=== PATIENT | female | born 1960 | race Hispanic/Latino ===

== ENCOUNTER 2017-12-20 11:56 | Emergency (ER) | payer MEDICARE ==
[~2017-12-20] VITALS: Ht 162.6 cm; Wt 68.0 kg
--- OUTSIDE RECORDS SUMMARY | 2017-12-20 11:59 | XMS REPORT ---
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 Allergies, Adverse Reactions, Alerts This patient has no known allergies or adverse reactions. Medications This patient has no known medications. Encounters Start Date/Time End Date/Time Encounter Type Admission Type Attending [facility] Facility Care Department Encounter ID 2017-10-26 12:17:36 Inpatient [facility] [id number] 2017-10-26 05:43:00 Inpatient [facility] [id number] 2017-10-26 00:00:00 Inpatient [facility] [id number] 2017-10-24 00:00:00 Inpatient [facility] [id number] 2017-08-14 00:00:00 Inpatient [facility] [id number] 2018-01-30 00:00:00 2018-01-30 00:00:00 Outpatient [facility] [id number] 2018-01-29 00:00:00 2018-01-29 00:00:00 Outpatient [facility] [id number] 2018-01-22 00:00:00 2018-01-22 00:00:00 Outpatient [facility] [id number] 2018-01-11 00:00:00 2018-01-11 00:00:00 Outpatient [facility] [id number] 2018-01-03 00:00:00 2018-01-03 00:00:00 Outpatient [facility] [id number] 2017-12-27 00:00:00 2017-12-27 00:00:00 Outpatient [facility] [id number] 2017-12-20 09:22:57 2017-12-20 09:22:57 Outpatient [facility] [id number] 2017-12-20 00:00:00 2017-12-20 00:00:00 Outpatient [facility] [id number] 2017-12-20 00:00:00 2017-12-20 00:00:00 Outpatient [facility] [id number] 2017-12-13 09:17:46 2017-12-13 09:17:46 Outpatient [facility] [id number] 2017-12-12 00:00:00 2017-12-12 00:00:00 Outpatient [facility] [id number] 2017-12-08 00:00:00 2017-12-08 00:00:00 Outpatient [facility] [id number] 2017-12-07 00:00:00 2017-12-07 00:00:00 Outpatient [facility] [id number] 08:53:14 2017 08:53:14 Outpatient [facility] [id number] 00:00:00 2017 00:00:00 Outpatient [facility] [id number] 2017-11-30 10:07:28 2017-11-30 10:07:28 Outpatient [facility] [id number] 2017-11-30 10:05:10 2017-11-30 10:05:10 Outpatient [facility] [id number] 2017-11-30 00:00:00 2017-11-30 00:00:00 Outpatient [facility] [id number] 2017-11-30 00:00:00 2017-11-30 00:00:00 Outpatient [facility] [id number] 2017-11-29 09:53:25 2017-11-29 09:53:25 Outpatient [facility] [id number] 2017-11-22 00:00:00 2017-11-22 00:00:00 Outpatient [facility] [id number] 2017-11-15 09:05:01 2017-11-15 09:05:01 Outpatient [facility] [id number] 2017-11-14 09:51:54 2017-11-14 09:51:54 Outpatient [facility] [id number] 2017-11-09 09:04:27 2017-11-09 09:04:27 Outpatient [facility] [id number] 2017-11-08 14:59:25 2017-11-08 14:59:25 Outpatient [facility] [id number] 2017-11-03 12:08:01 2017-11-03 12:08:01 Outpatient [facility] [id number] 2017-11-03 00:00:00 2017-11-03 00:00:00 Outpatient [facility] [id number] 2017-10-26 14:13:32 2017-10-26 00:00:00 Inpatient [facility] [id number] 2017-10-24 07:48:47 2017-10-24 07:48:47 Outpatient [facility] [id number] 2017-10-23 09:58:50 2017-10-23 09:58:50 Outpatient [facility] [id number] 2017-10-17 08:59:01 2017-10-17 08:59:01 Outpatient [facility] [id number] 2017-10-17 00:00:00 2017-10-17 00:00:00 Outpatient [facility] [id number] 2017-10-12 00:00:00 2017-10-12 00:00:00 Outpatient [facility] [id number] 2017-10-09 14:55:16 2017-10-09 14:55:16 Outpatient [facility] [id number] 2017-10-06 09:12:50 2017-10-06 09:12:50 Outpatient [facility] [id number] 2017-10-02 09:22:59 2017-10-02 09:22:59 Outpatient [facility] [id number] 2017-09-26 00:00:00 2017-09-26 00:00:00 Outpatient [facility] [id number] 2017-09-18 13:56:48 2017-09-18 13:56:48 Outpatient [facility] [id number] 2017-09-15 13:17:03 2017-09-15 13:17:03 Outpatient [facility] [id number] 2017-09-15 08:48:12 2017-09-15 08:48:12 Outpatient [facility] [id number] 2017-09-07 13:21:10 2017-09-07 13:21:10 Outpatient [facility] [id number] 2017-09-05 08:10:02 2017-09-05 08:10:02 Outpatient [facility] [id number] 2017-09-04 13:29:05 2017-09-04 13:29:05 Outpatient [facility] [id number] 2017-08-23 00:00:00 2017-08-23 00:00:00 Outpatient [facility] [id number] 2017-08-17 00:00:00 2017-08-17 00:00:00 Outpatient [facility] [id number] 2017-08-14 14:10:52 2017-08-14 14:10:52 Outpatient [facility] [id number] 2017-08-14 14:08:18 2017-08-14 14:08:18 Outpatient [facility] [id number] 2017-08-14 00:00:00 2017-08-14 00:00:00 Outpatient [facility] [id number] 2017-08-11 15:36:03 2017-08-11 15:36:03 Outpatient [facility] [id number] 2017-07-17 09:51:05 2017-07-17 09:51:05 Outpatient [facility] [id number] 2017-07-12 13:25:23 2017-07-12 13:25:23 Outpatient [facility] [id number] 2017-07-07 00:00:00 2017-07-07 00:00:00 Outpatient [facility] [id number] 2017-07-03 00:00:00 2017-07-03 00:00:00 Outpatient [facility] [id number] 2017-06-30 00:00:00 2017-06-30 00:00:00 Outpatient [facility] [id number] 2017-06-30 00:00:00 2017-06-30 00:00:00 Outpatient [facility] [id number] 2017-06-30 00:00:00 2017-06-30 00:00:00 Outpatient [facility] [id number] 2017-06-27 16:05:55 2017-06-27 16:05:55 Outpatient [facility] [id number] 2017-06-23 09:19:33 2017-06-23 09:19:33 Outpatient [facility] [id number] 2017-05-15 00:00:00 2017-05-15 00:00:00 Outpatient [facility] [id number] 2017-05-12 15:30:55 2017-05-12 15:30:55 Outpatient [facility] [id number] 2017-05-10 00:00:00 2017-05-10 00:00:00 Outpatient [facility] [id number] 2017-05-03 09:30:34 2017-05-03 09:30:34 Outpatient [facility] [id number] 2017-04-27 08:53:39 2017-04-27 08:53:39 Outpatient [facility] [id number] 2017-04-25 15:19:59 2017-04-25 15:19:59 Outpatient [facility] [id number] 2017-04-14 13:07:50 2017-04-14 13:07:50 Outpatient [facility] [id number] 2017-04-14 00:00:00 2017-04-14 00:00:00 Outpatient [facility] [id number] 2017-04-13 13:08:04 2017-04-13 13:08:04 Outpatient [facility] [id number] 2017-04-06 15:12:00 2017-04-06 15:12:00 Outpatient [facility] [id number] 2017-04-06 13:28:26 2017-04-06 13:28:26 Outpatient [facility] [id number] 2017-03-28 09:11:54 2017-03-28 09:11:54 Outpatient [facility] [id number] 2017-03-20 10:42:41 2017-03-20 10:42:41 Outpatient [facility] [id number]
--- OUTSIDE RECORDS SUMMARY | 2017-12-20 11:59 | XMS REPORT | Clinical Summary ---
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
[2017-12-20] MEDS ORDERED: LIDOCAINE VISC 2% SOLN 15 ML UDC PO ONE (12:15)
[2017-12-20] MEDS ORDERED: ASPIRIN 81 MG CHEW TAB PO ONE (12:15)
[2017-12-20] MEDS ORDERED: MAGNESIUM/ALUMINUM/SIMETHICONE 30 ML UDC PO ONE (12:15)
[2017-12-20 13:06] LABS: BASOPHILS # (AUTO) 0.1 (0.0-0.1); BASOPHILS % 0.5 % (0.0-1.0); EOSINOPHILS # (AUTO) 0.3 (0.0-0.4); EOSINOPHILS % 2.7 % (0.0-6.0); HEMATOCRIT 39.2 % (34.2-44.1); HEMOGLOBIN 12.9 g/dL (12.0-16.0); LYMPHOCYTES # (AUTO) 2.1 (1.0-3.2); LYMPHOCYTES % 16.7 % (18.0-39.1); MEAN CORPUSCULAR HEMOGLOBIN 30.4 pg (28-32); MEAN CORPUSCULAR HGB CONC 32.9 g/dL (31-35); MEAN CORPUSCULAR VOLUME 92.5 fL (81-99); MONOCYTES # (AUTO) 0.6 (0.2-0.8); MONOCYTES % 4.5 % (4.4-11.3); NEUTROPHILS # (AUTO) 9.4 (2.1-6.9); NEUTROPHILS % 75.3 % (38.7-80.0); PLATELET COUNT 283 x10e3/uL (140-360); RED BLOOD COUNT 4.24 x10e6/uL (3.6-5.1); RED CELL DISTRIBUTION WIDTH 12.7 % (11.7-14.4)
--- NOTE | 2017-12-20 13:09 | Diagnostic Imaging Report ---
PROCEDURE: CHEST SINGLE (PORTABLE) COMPARISON: None. INDICATIONS: CHEST PAINS, COUGH, SOB FINDINGS: Volumes are low with vascular crowding in the lung bases. No focal consolidation, pleural effusion, or pneumothorax. Cardiomediastinal contour and pulmonary vasculature are within normal limits when accounting for portable, AP technique and degree of inspiratory effort. No acute osseous abnormality. CONCLUSION: Low lung volumes without acute cardiopulmonary abnormality. Dictated by: Justin Egan M.D. on 12/20/2017 at 13:08 Electronically approved by: Justin Egan M.D. on 12/20/2017 at 13:08
[2017-12-20 13:17] LABS: INR 1.08; PROTHROMBIN TIME 13.2 seconds (11.9-14.5)
[2017-12-20 13:18] LABS: PARTIAL THROMBOPLASTIN TIME 26.1 seconds (23.8-35.5)
[2017-12-20 13:32] LABS: ALANINE AMINOTRANSFERASE 32 IU/L (0-55); ALBUMIN 4.3 g/dL (3.5-5.0); ALBUMIN/GLOBULIN RATIO 1.1 (0.8-2.0); ALKALINE PHOSPHATASE 125 IU/L (40-150); AMYLASE 60 U/L (25-125); ANION GAP 13.6 mmol/L (8-16); BLOOD UREA NITROGEN 23 mg/dL (7-26); BUN/CREATININE RATIO 30 (6-25); CALCIUM 9.2 mg/dL (8.4-10.2); CARBON DIOXIDE 20 mmol/L (22-29); CHLORIDE 108 mmol/L (98-107); CREATINE KINASE 33 IU/L (29-168); CREATININE, SERUM 0.77 mg/dL (0.57-1.11); EST GLOMERULAR FILTRATION RATE > 60 ML/MIN (60-); GLUCOSE 111 mg/dL (74-118); LIPASE 22 U/L (8-78); POTASSIUM 3.6 mmol/L (3.5-5.1); SODIUM 138 mmol/L (136-145)
[2017-12-20] MEDS ORDERED: BELLADONNA ALK/PHENOBARBITAL 5 ML UDC PO SCH (15:00)
== END 2017-12-20 17:34 | disposition home or self-care (01) ==
LOC: ER 11:56
DX: R10.13 Epigastric pain (principal); R07.89 Other chest pain; R11.0 Nausea
CPT/HCPCS: 36415; 71045; 80053; 82150; 82550; 82553; 83690; 83880; 84484; 85025; 85610; 85730; 93005; 99284

== ENCOUNTER → 2019-01-22 | Day surgery (SDC) | payer MEDICARE, OTHER ==
[2019-01-17 13:23] LABS: BASOPHILS # (AUTO) 0.1 (0.0-0.1); BASOPHILS % 1.2 % (0.0-1.0); EOSINOPHILS # (AUTO) 0.6 (0.0-0.4); EOSINOPHILS % 9.1 % (0.0-6.0); HEMOGLOBIN 14.3 g/dL (12.0-16.0); LYMPHOCYTES # (AUTO) 2.2 (1.0-3.2); LYMPHOCYTES % 35.9 % (18.0-39.1); MEAN CORPUSCULAR HGB CONC 33.3 g/dL (31-35); MEAN CORPUSCULAR VOLUME 90.3 fL (81-99); MONOCYTES # (AUTO) 0.5 (0.2-0.8); MONOCYTES % 7.4 % (4.4-11.3); NEUTROPHILS # (AUTO) 2.8 (2.1-6.9); NEUTROPHILS % 46.1 % (38.7-80.0); PLATELET COUNT 274 x10e3/uL (140-360); RED BLOOD COUNT 4.76 x10e6/uL (3.6-5.1); RED CELL DISTRIBUTION WIDTH 12.2 % (11.7-14.4)
[~2019-01-22] MED LIST: ADVAIR 250-501 EACH INH; ALBUTEROL0.63 MG/3 IH; AMBIEN5 MG PO; AMLODIPINE BESY10 MG PO; BUPROPION HCL100 MG PO; CETIRIZINE HCL10 MG PO; DEXILANT30 MG PO; FENTANYL CITRATE/PF 100MCG/2 ML INJ ONE; FLUTICASONE PRO16 GM; GABAPENTIN300 MG PO; IBUPROFEN400 MG PO; LISINOPRIL10 MG PO; METOPROLOL SUCC50 MG PO; MIDAZOLAM HCL 2 MG/2 ML VIAL ONE; MIRTAZAPINE15 MG PO; NEBULIZER PO; PROPOFOL IV EMULSION 10 MG/ML 50 ML VIAL ONE; TIZANIDINE HCL4 MG PO; TOPIRAMATE25 MG PO; VIT B12 PO; VIT D3 PO; VIT E PO
--- OUTSIDE RECORDS SUMMARY | 2019-01-22 07:32 | XMS REPORT ---
Author Author [facility] Address Unknown Phone Unavailable Care Team Providers Care Glue Clamp Operator Name Role Phone Blanca TOLEDO Unavailable Unavailable Problems This patient has no known problems. Allergies, Adverse Reactions, Alerts This patient has no known allergies or adverse reactions. Medications This patient has no known medications. Encounters Start Date/Time End Date/Time Encounter Type Admission Type Attending [facility] Care Facility Care Department Encounter ID 2017-10-26 12:17:36 Inpatient [facility] [id number] 2017-10-26 05:43:00 Inpatient [facility] [id number] 2017-10-26 00:00:00 Inpatient [facility] [id number] 2017-10-24 00:00:00 Inpatient [facility] [id number] 2017-08-14 00:00:00 Inpatient [facility] [id number] 2018-10-09 00:00:00 2018-10-09 00:00:00 Outpatient [facility] [id number] 2018-10-08 00:00:00 2018-10-08 00:00:00 Outpatient [facility] [id number] 2018-09-18 00:00:00 2018-09-18 00:00:00 Outpatient [facility] [id number] 2018-08-27 00:00:00 2018-08-27 00:00:00 Outpatient [facility] [id number] 2018-08-21 12:55:14 2018-08-21 12:55:14 Outpatient [facility] [id number] 2018-08-21 00:00:00 2018-08-21 00:00:00 Outpatient [facility] [id number] 2018-08-14 14:21:43 2018-08-14 14:21:43 Outpatient [facility] [id number] 2018-08-07 00:00:00 2018-08-07 00:00:00 Outpatient [facility] [id number] 2018-08-03 00:00:00 2018-08-03 00:00:00 Outpatient [facility] [id number] 2018-07-27 00:00:00 2018-07-27 00:00:00 Outpatient [facility] [id number] 2018-07-14 00:00:00 2018-07-14 00:00:00 Outpatient [facility] [id number] 2018-07-05 09:55:20 2018-07-05 09:55:20 Outpatient [facility] [id number] 2018-06-22 00:00:00 2018-06-22 00:00:00 Outpatient [facility] [id number] 2018-06-21 11:08:57 2018-06-21 11:08:57 Outpatient [facility] [id number] 2018-06-18 00:00:00 2018-06-18 00:00:00 Outpatient [facility] [id number] 2018-06-15 00:00:00 2018-06-15 00:00:00 Outpatient [facility] [id number] 2018-06-13 10:22:12 2018-06-13 10:22:12 Outpatient [facility] [id number] 2018-06-13 09:03:12 2018-06-13 09:03:12 Outpatient [facility] [id number] 2018-06-05 00:00:00 2018-06-05 00:00:00 Outpatient [facility] [id number] 2018-05-23 00:00:00 2018-05-23 00:00:00 Outpatient [facility] [id number] 2018-05-10 00:00:00 2018-05-10 00:00:00 Outpatient [facility] [id number] 2018-05-02 07:34:28 2018-05-02 07:34:28 Outpatient [facility] [id number] 2018-04-30 08:15:19 2018-04-30 08:15:19 Outpatient [facility] [id number] 2018-04-25 00:00:00 2018-04-25 00:00:00 Outpatient [facility] [id number] 2018-04-19 09:46:52 2018-04-19 09:46:52 Outpatient [facility] [id number] 2018-04-19 09:40:45 2018-04-19 09:40:45 Outpatient [facility] [id number] 2018-04-19 07:49:31 2018-04-19 07:49:31 Outpatient [facility] [id number] 2018-04-12 09:38:39 2018-04-12 09:38:39 Outpatient [facility] [id number] 2018-04-04 07:29:08 2018-04-04 07:29:08 Outpatient [facility] [id number] 2018-04-03 13:08:39 2018-04-03 13:08:39 Outpatient [facility] [id number] 2018-03-28 07:09:18 2018-03-28 07:09:18 Outpatient [facility] [id number] 2018-03-28 07:04:36 2018-03-28 07:04:36 Outpatient [facility] [id number] 2018-03-27 14:34:50 2018-03-27 14:34:50 Outpatient [facility] [id number] 2018-03-22 08:13:39 2018-03-22 08:13:39 Outpatient [facility] [id number] 2018-03-19 00:00:00 2018-03-19 00:00:00 Outpatient [facility] [id number] 2018-03-15 00:00:00 2018-03-15 00:00:00 Outpatient [facility] [id number] 2018-03-13 07:39:02 2018-03-13 07:39:02 Outpatient [facility] [id number] 2018-03-13 06:49:27 2018-03-13 06:49:27 Outpatient [facility] [id number] 2018-03-08 14:20:51 2018-03-08 14:20:51 Outpatient [facility] [id number] 2018-03-08 12:40:37 2018-03-08 12:40:37 Outpatient [facility] [id number] 2018-03-07 10:00:47 2018-03-07 10:00:47 Outpatient [facility] [id number] 2018-03-07 08:40:46 2018-03-07 08:40:46 Outpatient [facility] [id number] 2018-02-27 09:37:18 2018-02-27 09:37:18 Outpatient [facility] [id number] 2018-02-23 14:18:37 2018-02-23 14:18:37 Outpatient [facility] [id number] 2018-02-22 14:53:01 2018-02-22 14:53:01 Outpatient [facility] [id number] 2018-02-22 14:42:10 2018-02-22 14:42:10 Outpatient [facility] [id number] 2018-02-22 09:30:08 2018-02-22 09:30:08 Outpatient [facility] [id number] 2018-02-13 09:39:42 2018-02-13 09:39:42 Outpatient [facility] [id number] 2018-01-30 00:00:00 2018-01-30 00:00:00 Outpatient [facility] [id number] 2018-01-29 00:00:00 2018-01-29 00:00:00 Outpatient [facility] [id number] 2018-01-24 09:24:23 2018-01-24 09:24:23 Outpatient [facility] [id number] 2018-01-22 15:19:01 2018-01-22 15:19:01 Outpatient [facility] [id number] 2018-01-16 00:00:00 2018-01-16 00:00:00 Outpatient [facility] [id number] 2018-01-11 07:08:45 2018-01-11 07:08:45 Outpatient [facility] [id number] 2018-01-10 00:00:00 2018-01-10 00:00:00 Outpatient [facility] [id number] 2018-01-03 09:47:38 2018-01-03 09:47:38 Outpatient [facility] [id number] 2017-12-27 09:36:07 2017-12-27 09:36:07 Outpatient [facility] [id number] 2017-12-21 00:00:00 2017-12-21 00:00:00 Outpatient [facility] [id number] 2017-12-20 09:22:57 2017-12-20 09:22:57 Outpatient [facility] [id number] 2017-12-20 00:00:00 2017-12-20 00:00:00 Outpatient [facility] [id number] 2017-12-20 00:00:00 2017-12-20 00:00:00 Outpatient [facility] [id number] 2017-12-13 09:17:46 2017-12-13 09:17:46 Outpatient [facility] [id number] 2017-12-12 00:00:00 2017-12-12 00:00:00 Outpatient [facility] [id number] 2017-12-08 00:00:00 2017-12-08 00:00:00 Outpatient [facility] [id number] 2017-12-07 00:00:00 2017-12-07 00:00:00 Outpatient [facility] [id number] 2017 08:53:14 2017 08:53:14 Outpatient [facility] [id number] 2017 00:00:00 2017 00:00:00 Outpatient [facility] [id number] 2017-11-30 10:07:28 2017-11-30 10:07:28 Outpatient [facility] [id number] 2017-11-30 10:05:10 2017-11-30 10:05:10 Outpatient [facility] [id number] 2017-11-30 00:00:00 2017-11-30 00:00:00 Outpatient [facility] [id number] 2017-11-30 00:00:00 2017-11-30 00:00:00 Outpatient [facility] [id number] 2017-11-29 09:53:25 2017-11-29 09:53:25 Outpatient [facility] [id number] 2017-11-22 00:00:00 2017-11-22 00:00:00 Outpatient [facility] [id number] 2017-11-15 09:05:01 2017-11-15 09:05:01 Outpatient [facility] [id number] 2017-11-14 09:51:54 2017-11-14 09:51:54 Outpatient [facility] [id number] 2017-11-09 09:04:27 2017-11-09 09:04:27 Outpatient [facility] [id number] 2017-11-08 14:59:25 2017-11-08 14:59:25 Outpatient [facility] [id number] 2017-11-03 12:08:01 2017-11-03 12:08:01 Outpatient [facility] [id number] 2017-11-03 00:00:00 2017-11-03 00:00:00 Outpatient [facility] [id number] 2017-10-26 14:13:32 2017-10-26 00:00:00 Inpatient [facility] [id number] 2017-10-24 07:48:47 2017-10-24 07:48:47 Outpatient [facility] [id number] 2017-10-23 09:58:50 2017-10-23 09:58:50 Outpatient [facility] [id number] 2017-10-17 08:59:01 2017-10-17 08:59:01 Outpatient [facility] [id number] 2017-10-17 00:00:00 2017-10-17 00:00:00 Outpatient [facility] [id number] 2017-10-12 00:00:00 2017-10-12 00:00:00 Outpatient [facility] [id number] 2017-10-09 14:55:16 2017-10-09 14:55:16 Outpatient [facility] [id number] 2017-10-06 09:12:50 2017-10-06 09:12:50 Outpatient [facility] [id number] 2017-10-02 09:22:59 2017-10-02 09:22:59 Outpatient [facility] [id number] 2017-09-26 00:00:00 2017-09-26 00:00:00 Outpatient [facility] [id number] 2017-09-18 13:56:48 2017-09-18 13:56:48 Outpatient [facility] [id number] 2017-09-15 13:17:03 2017-09-15 13:17:03 Outpatient [facility] [id number] 2017-09-15 08:48:12 2017-09-15 08:48:12 Outpatient [facility] [id number] 2017-09-07 13:21:10 2017-09-07 13:21:10 Outpatient [facility] [id number] 2017-09-05 08:10:02 2017-09-05 08:10:02 Outpatient [facility] [id number] 2017-09-04 13:29:05 2017-09-04 13:29:05 Outpatient [facility] [id number] 2017-08-23 00:00:00 2017-08-23 00:00:00 Outpatient [facility] [id number] 2017-08-17 00:00:00 2017-08-17 00:00:00 Outpatient [facility] [id number] 2017-08-14 14:10:52 2017-08-14 14:10:52 Outpatient [facility] [id number] 2017-08-14 14:08:18 2017-08-14 14:08:18 Outpatient [facility] [id number] 2017-08-14 00:00:00 2017-08-14 00:00:00 Outpatient [facility] [id number] 2017-08-11 15:36:03 2017-08-11 15:36:03 Outpatient [facility] [id number] 2017-07-17 09:51:05 2017-07-17 09:51:05 Outpatient [facility] [id number] 2017-07-12 13:25:23 2017-07-12 13:25:23 Outpatient [facility] [id number] 2017-07-07 00:00:00 2017-07-07 00:00:00 Outpatient [facility] [id number] 2017-07-03 00:00:00 2017-07-03 00:00:00 Outpatient [facility] [id number] 2017-06-30 00:00:00 2017-06-30 00:00:00 Outpatient [facility] [id number] 2017-06-30 00:00:00 2017-06-30 00:00:00 Outpatient [facility] [id number] 2017-06-30 00:00:00 2017-06-30 00:00:00 Outpatient [facility] [id number] 2017-06-27 16:05:55 2017-06-27 16:05:55 Outpatient [facility] [id number] 2017-06-23 09:19:33 2017-06-23 09:19:33 Outpatient [facility] [id number] 2017-05-15 00:00:00 2017-05-15 00:00:00 Outpatient [facility] [id number] 2017-05-12 15:30:55 2017-05-12 15:30:55 Outpatient [facility] [id number] 2017-05-10 00:00:00 2017-05-10 00:00:00 Outpatient [facility] [id number] 2017-05-03 09:30:34 2017-05-03 09:30:34 Outpatient [facility] [id number] 2017-04-27 08:53:39 2017-04-27 08:53:39 Outpatient [facility] [id number] 2017-04-25 15:19:59 2017-04-25 15:19:59 Outpatient [facility] [id number] 2017-04-14 13:07:50 2017-04-14 13:07:50 Outpatient [facility] [id number] 2017-04-14 00:00:00 2017-04-14 00:00:00 Outpatient [facility] [id number] 2017-04-13 13:08:04 2017-04-13 13:08:04 Outpatient [facility] [id number] 2017-04-06 15:12:00 2017-04-06 15:12:00 Outpatient [facility] [id number] 2017-04-06 13:28:26 2017-04-06 13:28:26 Outpatient [facility] [id number] 2017-03-28 09:11:54 2017-03-28 09:11:54 Outpatient [facility] [id number] 2017-03-20 10:42:41 2017-03-20 10:42:41 Outpatient [facility] [id number] Results Test Description Test Time Test Comments Text Results Atomic Results Result Comments CHEST SINGLE (PORTABLE) [place] [id number] Patient Name: ZONIA ARENAS MR #: [id number] : 1960 Age/Sex: 57/F Req #: [id number] Adm Physician: Ordered by: MANJULA ALVARADO NP Report #: [id number] Location: ER Room/Bed: Procedure: [id number] DX/CHEST SINGLE (PORTABLE) Exam Date: Exam Time: REPORT STATUS: Signed PROCEDURE: CHEST SINGLE (PORTABLE) COMPARISON: None. INDICATIONS: CHEST PAINS, COUGH, SOB FINDINGS: Volumes are low with vascular crowding in the lung bases. No focal consolidation, pleural effusion, or pneumothorax. Cardiomediastinal contour and pulmonary vasculature are within normal limits when accounting for portable, AP technique and degree of inspiratory effort. No acute osseous abnormality. CONCLUSION: Low lung volumes without acute cardiopulmonary abnormality. Dictated by: Joelle Becerra M.D. on 12/20/2017 at 13:08 Electronically approved by: Joelle Becerra M.D. on 12/20/2017 at 13:08 Dictated By: JOELLE BECERRA MD [id number] Transcribed By: EMIGDIO on 12/20/17 1573 COPY TO: MANJULA ALVARADO NP
--- OUTSIDE RECORDS SUMMARY | 2019-01-22 07:32 | XMS REPORT | Clinical Summary ---
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 Last Filed Vital Signs Not on file Plan of Treatment Not on file Results Not on fileafter 01/21/2018
[2019-01-22 12:55] VITALS: BP 126/78
== END | disposition home or self-care (01) ==
LOC: OR 07:20
PROVIDERS: ATTEND Internal Medicine Gastroenterology
DX: Z12.11 Encounter for screening for malignant neoplasm of colon (principal); D12.0 Benign neoplasm of cecum; K64.8 Other hemorrhoids; R19.7 Diarrhea, unspecified; K21.9 Gastro-esophageal reflux disease without esophagitis; G47.33 Obstructive sleep apnea (adult) (pediatric); J45.909 Unspecified asthma, uncomplicated; I10 Essential (primary) hypertension; R07.9 Chest pain, unspecified; F32.9 Major depressive disorder, single episode, unspecified; F41.9 Anxiety disorder, unspecified; Z01.812 Encounter for preprocedural laboratory examination; Z68.30 Body mass index [BMI] 30.0-30.9, adult; Z96.651 Presence of right artificial knee joint; Z80.0 Family history of malignant neoplasm of digestive organs
CPT/HCPCS: 36415; 45380; 45384; 85025; J2250; J2704; 45378

== ENCOUNTER 2019-03-26 20:50 | Inpatient (IN) | payer MEDICARE, OTHER ==
[~2019-03-26] VITALS: Ht 162.6 cm; Wt 85.5 kg
[~2019-03-26 20:50] MED LIST changes: -FENTANYL CITRATE/PF 100MCG/2 ML INJ ONE; -MIDAZOLAM HCL 2 MG/2 ML VIAL ONE; -PROPOFOL IV EMULSION 10 MG/ML 50 ML VIAL ONE
--- OUTSIDE RECORDS SUMMARY | 2019-03-26 20:54 | XMS REPORT | Continuity of Care Document ---
Author Author [facility] Interface Address Unknown Phone Unavailable Problems Problem Status Onset Date Classification Date Reported Comments Source Medications Medication Details Route Status Patient Instructions Ordering Provider Order Date Source Allergies, Adverse Reactions, Alerts Substance Category Reaction Severity Reaction type Status Date Reported Comments Source Immunizations Immunization Date Given Site Status Last Updated Comments Source Results Order Name Results Value Reference Range Date Interpretation Comments Source Activated partial thromboplastin time (aPTT) in platelet poor plasma bycoagulation assay Activated partial thromboplastin time (aPTT) in platelet poor plasma bycoagulation assay 26.1 23.8 - 35.5 12/20/2017 [facility] Automated blood basophil count (count/volume) Automated blood basophil count (count/volume) 0.1 0.0 - 0.1 12/20/2017 [facility] Automated blood basophil count as percentage of total leukocytes Automated blood basophil count as percentage of total leukocytes 0.5 0.0 - 1.0 12/20/2017 [facility] Automated blood eosinophil count Automated blood eosinophil count 0.3 0.0 - 0.4 12/20/2017 [facility] Automated blood eosinophil count as percentage of total leukocytes Automated blood eosinophil count as percentage of total leukocytes 2.7 0.0 - 6.0 12/20/2017 [facility] Automated blood hematocrit (volume fraction) Automated blood hematocrit (volume fraction) 39.2 34.2 - 44.1 12/20/2017 [facility] Automated blood lymphocyte count as percentage ot total leukocytes Automated blood lymphocyte count as percentage ot total leukocytes 16.7 18.0 - 39.1 12/20/2017 [facility] Automated blood monocyte count as percentage of total leukocytes Automated blood monocyte count as percentage of total leukocytes 4.5 4.4 - 11.3 12/20/2017 [facility] Automated blood neutrophil count Automated blood neutrophil count 9.4 2.1 - 6.9 12/20/2017 [facility] Automated blood platelet count (count/volume) Automated blood platelet count (count/volume) 283 140 - 360 12/20/2017 [facility] Automated blood segmented neutrophil count as percentage of total leukocytes Automated blood segmented neutrophil count as percentage of total leukocytes 75.3 38.7 - 80.0 12/20/2017 [facility] Automated erythrocyte mean corpuscular hemoglobin (mass per erythrocyte) Automated erythrocyte mean corpuscular hemoglobin (mass per erythrocyte) 30.4 28 - 32 12/20/2017 [facility] Automated erythrocyte mean corpuscular hemoglobin concentration measurement (mass/volume) Automated erythrocyte mean corpuscular hemoglobin concentration measurement (mass/volume) 32.9 31 - 35 12/20/2017 [facility] Automated erythrocyte mean corpuscular volume Automated erythrocyte mean corpuscular volume 92.5 81 - 99 12/20/2017 [facility] Blood erythrocytes automated count (number/volume) Blood erythrocytes automated count (number/volume) 4.24 3.6 - 5.1 12/20/2017 [facility] Blood hemoglobin measurement (moles/volume) Blood hemoglobin measurement (moles/volume) 12.9 12.0 - 16.0 12/20/2017 [facility] Blood leukocytes automated count (number/volume) Blood leukocytes automated count (number/volume) 12.42 4.8 - 10.8 12/20/2017 [facility] Blood lymphocytes count (number/volume) Blood lymphocytes count (number/volume) 2.1 1.0 - 3.2 12/20/2017 [facility] Blood monocytes automated count (number/volume) Blood monocytes automated count (number/volume) 0.6 0.2 - 0.8 12/20/2017 [facility] Estimated glomerular filtration rate (GFR) determination Estimated glomerular filtration rate (GFR) determination null 60 12/20/2017 [facility] Glucose measurement Glucose measurement 111 74 - 118 12/20/2017 [facility] INR in Platelet poor plasma by Coagulation assay INR in Platelet poor plasma by Coagulation assay 1.08 12/20/2017 [facility] Plasma globulin measurement (mass/volume) Plasma globulin measurement (mass/volume) 3.9 2.3 - 3.5 12/20/2017 [facility] Prothrombin time (PT) in platelet poor plasma by coagulation assay Prothrombin time (PT) in platelet poor plasma by coagulation assay 13.2 11.9 - 14.5 12/20/2017 [facility] Serum or plasma alanine aminotransferase measurement (enzymatic activity/volume) Serum or plasma alanine aminotransferase measurement (enzymatic activity/volume) 32 0 - 55 12/20/2017 [facility] Serum or plasma albumin measurement (mass/volume) Serum or plasma albumin measurement (mass/volume) 4.3 3.5 - 5.0 12/20/2017 [facility] Serum or plasma albumin/globulin mass ratio Serum or plasma albumin/globulin mass ratio 1.1 0.8 - 2.0 12/20/2017 [facility] Serum or plasma alkaline phosphatase measurement (enzymatic activity/volume) Serum or plasma alkaline phosphatase measurement (enzymatic activity/volume) 125 40 - 150 12/20/2017 [facility] Serum or plasma amylase measurement (enzymatic activity/volume) Serum or plasma amylase measurement (enzymatic activity/volume) 60 25 - 125 12/20/2017 [facility] Serum or plasma anion gap Serum or plasma anion gap 13.6 8 - 16 12/20/2017 [facility] Serum or plasma calcium measurement (mass/volume) Serum or plasma calcium measurement (mass/volume) 9.2 8.4 - 10.2 12/20/2017 [facility] Serum or plasma carbon dioxide, total measurement (moles/volume) Serum or plasma carbon dioxide, total measurement (moles/volume) 20 22 - 29 12/20/2017 [facility] Serum or plasma chloride measurement (moles/volume) Serum or plasma chloride measurement (moles/volume) 108 98 - 107 12/20/2017 [facility] Serum or plasma creatine kinase MB measurement (mass/volume) Serum or plasma creatine kinase MB measurement (mass/volume) 0.40 0.00 - 5.00 12/20/2017 [facility] Serum or plasma creatine kinase measurement (enzymatic activity/volume) Serum or plasma creatine kinase measurement (enzymatic activity/volume) 33 29 - 168 12/20/2017 [facility] Serum or plasma creatinine measurement (mass/volume) Serum or plasma creatinine measurement (mass/volume) 0.77 0.57 - 1.11 12/20/2017 [facility] Serum or plasma lipase measurement (enzymatic activity/volume) Serum or plasma lipase measurement (enzymatic activity/volume) 22 8 - 78 12/20/2017 [facility] Serum or plasma potassium measurement (moles/volume) Serum or plasma potassium measurement (moles/volume) 3.6 3.5 - 5.1 12/20/2017 [facility] Serum or plasma protein measurement (mass/volume) Serum or plasma protein measurement (mass/volume) 8.2 6.5 - 8.1 12/20/2017 [facility] Serum or plasma sodium measurement (moles/volume) Serum or plasma sodium measurement (moles/volume) 138 136 - 145 12/20/2017 [facility] Serum or plasma total bilirubin measurement (mass/volume) Serum or plasma total bilirubin measurement (mass/volume) 0.6 0.2 - 1.2 12/20/2017 [facility] Serum or plasma troponin i.cardiac measurement by detection limit <=0.01 NG/ml (mass/volume) Serum or plasma troponin i.cardiac measurement by detection limit <=0.01 NG/ml (mass/volume) 0.001 0 - 0.300 12/20/2017 [facility] Serum or plasma urea nitrogen measurement (mass/volume) Serum or plasma urea nitrogen measurement (mass/volume) 23 7 - 26 12/20/2017 [facility] Serum or plasma urea nitrogen/creatinine mass ratio Serum or plasma urea nitrogen/creatinine mass ratio 30 6 - 25 12/20/2017 [facility] Red Cell Distribution Width 12.7 11.7 - 14.4 12/20/2017 [facility] IM GRANULOCYTES % 0.3 0.0 - 1.0 12/20/2017 [facility] Absolute Immature Granulocyte (auto 0.04 0 - 0.1 12/20/2017 [facility] Aspartate Amino Transf (AST/SGOT) 63 5 - 34 12/20/2017 [facility] B-Type Natriuretic Peptide null 0 - 100 12/20/2017 [facility] Vital Signs Vital Sign Value Date Comments Source Encounters Location Location Details Encounter Type Encounter Number Reason For Visit Attending Provider ADM Date DC Date Status Source Departed Emergency Room [id number] DRE TOLEDO MD 12/20/2017 12/20/2017 [facility] Procedures Procedure Code Date Perfomer Comments Source
--- OUTSIDE RECORDS SUMMARY | 2019-03-26 20:54 | XMS REPORT | Clinical Summary ---
Author Author [facility] Address Unknown Phone Unavailable Care Team Providers Care Chlorination Operator Name Role Phone PCP Unavailable Allergies [...] Not on file Results Not on fileafter 03/25/2018
[2019-03-26] MEDS ORDERED: PANTOPRAZOLE 40 MG 10ML VIAL IV NR (21:48)
[2019-03-26] MEDS ORDERED: SODIUM CHLORIDE 0.9% 1000ML 1,000 ML IV STA (21:48)
[2019-03-26] MEDS ORDERED: ONDANSETRON HCL INJ 2MG/ML 2ML 2 MG/ML VIAL IV NR (21:48)
[2019-03-26] MEDS ORDERED: SODIUM CHLORIDE 0.9% 1000ML 1,000 ML ONE (21:55)
--- NOTE | 2019-03-26 22:13 | Diagnostic Imaging Report ---
Examination: Single AP view of the chest. COMPARISON: None. INDICATION: pain DISCUSSION: Lines/tubes: None. Lungs: The lungs are well inflated and clear. No pneumonia or pulmonary edema. Pleura: No pleural effusion or pneumothorax. Heart and mediastinum: The heart and the mediastinum are unremarkable. Bones and soft tissues: No acute bony abnormalities. IMPRESSION: 1. No acute cardiopulmonary abnormalities. Signed by: Dr. Toño Jackson M.D. on 03/26/2019 10:10 PM
[2019-03-26 22:16] LABS: BASOPHILS # (AUTO) 0.1 (0.0-0.1); BASOPHILS % 1.4 % (0.0-1.0); EOSINOPHILS # (AUTO) 0.9 (0.0-0.4); EOSINOPHILS % 15.5 % (0.0-6.0); HEMATOCRIT 35.2 % (34.2-44.1); LYMPHOCYTES # (AUTO) 1.8 (1.0-3.2); LYMPHOCYTES % 31.1 % (18.0-39.1); MEAN CORPUSCULAR HEMOGLOBIN 30.8 pg (28-32); MEAN CORPUSCULAR HGB CONC 34.1 g/dL (31-35); MEAN CORPUSCULAR VOLUME 90.5 fL (81-99); MONOCYTES # (AUTO) 0.5 (0.2-0.8); MONOCYTES % 7.9 % (4.4-11.3); NEUTROPHILS # (AUTO) 2.5 (2.1-6.9); NEUTROPHILS % 43.9 % (38.7-80.0); PLATELET COUNT 299 x10e3/uL (140-360); RED BLOOD COUNT 3.89 x10e6/uL (3.6-5.1); RED CELL DISTRIBUTION WIDTH 12.4 % (11.7-14.4)
[2019-03-26 22:28] LABS: INR 0.92; PROTHROMBIN TIME 12.8 seconds (11.9-14.5)
[2019-03-26 22:29] LABS: PARTIAL THROMBOPLASTIN TIME 30.8 seconds (23.8-35.5)
[2019-03-26] MEDS ORDERED: SODIUM CHLORIDE 0.9% 1000ML 1,000 ML IV SCH ×2 (22:30)
[2019-03-26 22:36] LABS: ALANINE AMINOTRANSFERASE 13 IU/L (0-55); ALBUMIN 4.1 g/dL (3.5-5.0); ALBUMIN/GLOBULIN RATIO 1.3 (0.8-2.0); ALKALINE PHOSPHATASE 90 IU/L (40-150); AMYLASE 102 U/L (25-125); ANION GAP 17.8 mmol/L (8-16); BLOOD UREA NITROGEN 33 mg/dL (7-26); BUN/CREATININE RATIO 26 (6-25); CALCIUM 9.4 mg/dL (8.4-10.2); CARBON DIOXIDE 22 mmol/L (22-29); CHLORIDE 105 mmol/L (98-107); CREATINE KINASE 40 IU/L (29-168); CREATININE, SERUM 1.27 mg/dL (0.57-1.11); EST GLOMERULAR FILTRATION RATE 43 ML/MIN (60-); GLUCOSE 102 mg/dL (74-118); LIPASE 27 U/L (8-78); MAGNESIUM 2.2 MG/DL (1.3-2.1); POTASSIUM 3.8 mmol/L (3.5-5.1); SODIUM 141 mmol/L (136-145)
[2019-03-26 22:56] LABS: B-TYPE NATRIURETIC PEPTIDE2 < 10.0 pg/mL (0-100)
[2019-03-26] MEDS ORDERED: VANCOMYCIN 1GM/NS 250 ML 250 ML IV STA (22:59)
[2019-03-26] MEDS ORDERED: IOPAMIDOL 370 MG/ML 200 ML INFUS..BTL INJ ONE (23:02)
[2019-03-26] MEDS ORDERED: SODIUM CHLORIDE 0.9% 100 ML 100 ML ONE (23:02)
--- NOTE | 2019-03-26 23:33 | Diagnostic Imaging Report ---
EXAMINATION: CT scan of the chest with contrast. TECHNIQUE: Helical CT images of the chest were performed from the lung apices to the level of the adrenal glands before and after the intravenous administration of 100 cc of Isovue 300. Coronal and sagittal reformatted images were obtained.Dose modulation, iterative reconstruction, and/or weight based adjustment of the mA/kV was utilized to reduce the radiation dose to as low as reasonably achievable. COMPARISON: None. CLINICAL HISTORY:Chest pain, evaluate for dissection DISCUSSION: LINES/TUBES: None. LUNGS AND AIRWAYS: Lower lung atelectasis. Scattered subpleural nodularity. No consolidation or concerning mass. PLEURA: No pneumothorax or pleural effusions. HEART AND MEDIASTINUM: The thyroid gland is normal. The heart and pericardium are within normal limits. No intramural hematoma. No aortic dissection or aneurysm. No pulmonary embolism. LYMPH NODES: There is no mediastinal, hilar or axillary lymphadenopathy. ABDOMEN: CT abdomen CT report. BONES AND SOFT TISSUES: No acute bony abnormalities. IMPRESSION: No acute CT finding within the chest. Signed by: Dr. Toño Jackson M.D. on 03/26/2019 11:29 PM
--- NOTE | 2019-03-26 23:39 | Diagnostic Imaging Report ---
EXAMINATION: CT of the abdomen and pelvis with contrast. TECHNIQUE: Helical CT images of the abdomen and pelvis were performed from the lung bases to the lesser trochanters after the intravenous administration of 100 cc of Isovue 300 and the oral administration of none. Coronal and sagittal reformatted images were obtained.Dose modulation, iterative reconstruction, and/or weight based adjustment of the mA/kV was utilized to reduce the radiation dose to as low as reasonably achievable. COMPARISON: None. CLINICAL HISTORY:Abdominal pain DISCUSSION: ABDOMEN/PELVIS: LOWER THORAX:Lower lung atelectasis. HEPATOBILIARY: No focal hepatic lesions. No intra-or extrahepatic biliary ductal dilation. The gallbladder is normal. SPLEEN: No splenomegaly. PANCREAS: No focal masses or ductal dilatation. ADRENALS: Left adrenal adenoma measuring 2 cm. KIDNEYS/URETERS: No hydronephrosis, stones, or solid mass lesions. PELVIC ORGANS/BLADDER: The bladder is normal. PERITONEUM/RETROPERITONEUM: No free air or fluid. LYMPH NODES: No intra-abdominal, retroperitoneal, pelvic or inguinal lymphadenopathy. VESSELS: Unremarkable. GI TRACT: No distention or wall thickening. BONES AND SOFT TISSUE: No bony destructive lesions. No soft tissue abnormalities. IMPRESSION: No acute CT finding Signed by: Dr. Toño Jackson M.D. on 03/26/2019 11:35 PM
[2019-03-26] MEDS: SODIUM CHLORIDE 0.9% 1000ML 1,000 ML IV SCH (23:43)
[2019-03-26] MEDS: CEFEPIME 2 GM/NS 0.9% 100 ML 100 ML IV SCH (23:43)
[2019-03-26 23:50] LABS: CLARITY,URINE CLEAR (CLEAR); COLOR,URINE YELLOW (YELLOW); LEUKOCYTE ESTERASE ,URINE 1+ (NEGATIVE)
[2019-03-26 23:51] LABS: BILIRUBIN,URINE NEGATIVE (NEGATIVE); KETONES,URINE NEGATIVE (NEGATIVE); NITRITE,URINE NEGATIVE (NEGATIVE); PROTEIN,URINE DIPSTICK NEGATIVE (NEGATIVE); URINE UROBILINOGEN 0.2 mg/dL (0.2 - 1)
[2019-03-26 23:54] LABS: AMPHETAMINES SCREEN,URINE NEGATIVE (NEGATIVE); BENZODIAZEPINES SCREEN,URINE NEGATIVE (NEGATIVE); PHENCYCLIDINE SCREEN,URINE NEGATIVE (NEGATIVE)
[2019-03-27] VITALS (10 sets, daily range): BP systolic 101–131; BP diastolic 66–82
[2019-03-27] LABS: RBC,URINE 0-5 /HPF (0-5)
[2019-03-27 00:01] LABS: BACTERIA,URINE FEW /HPF; EPITHELIAL CELLS,URINE FEW /LPF; TRANSITIONAL EPI CELLS,URINE FEW
[2019-03-27] MEDS ORDERED: CEFTRIAXONE SOD 1 GM/NS 50 ML 50 ML IV SCH (00:45)
[2019-03-27] MEDS ORDERED: MORPHINE SULFATE 2 MG/ML SYR 1ML IV PRN (01:15)
--- OUTSIDE RECORDS SUMMARY | 2019-03-27 02:52 | XMS REPORT | Clinical Summary ---
Author Author [facility] Address Unknown Phone Unavailable Care Team Providers Care Consumer Affairs Specialist Name Role Phone PCP Unavailable Allergies Not [...] Not on file Results Not on fileafter 03/26/2018
[2019-03-27] MEDS ORDERED: MORPHINE SULFATE INJ 4 MG/ML INJ 1ML ONE (03:08)
[2019-03-27] MEDS ORDERED: MORPHINE SULFATE INJ 4 MG/ML INJ 1ML IV PRN (03:15)
[2019-03-27 06:52] LABS: BASOPHILS # (AUTO) 0.1 (0.0-0.1); BASOPHILS % 1.2 % (0.0-1.0); EOSINOPHILS # (AUTO) 0.9 (0.0-0.4); EOSINOPHILS % 13.2 % (0.0-6.0); HEMATOCRIT 38.9 % (34.2-44.1); LYMPHOCYTES # (AUTO) 1.9 (1.0-3.2); LYMPHOCYTES % 28.6 % (18.0-39.1); MEAN CORPUSCULAR HEMOGLOBIN 30.9 pg (28-32); MEAN CORPUSCULAR HGB CONC 33.4 g/dL (31-35); MEAN CORPUSCULAR VOLUME 92.4 fL (81-99); MONOCYTES # (AUTO) 0.5 (0.2-0.8); MONOCYTES % 7.7 % (4.4-11.3); NEUTROPHILS # (AUTO) 3.2 (2.1-6.9); PLATELET COUNT 274 x10e3/uL (140-360); RED BLOOD COUNT 4.21 x10e6/uL (3.6-5.1); RED CELL DISTRIBUTION WIDTH 12.4 % (11.7-14.4)
[2019-03-27 07:17] LABS: ALANINE AMINOTRANSFERASE 18 IU/L (0-55); ALBUMIN/GLOBULIN RATIO 1.3 (0.8-2.0); ALKALINE PHOSPHATASE 90 IU/L (40-150); BLOOD UREA NITROGEN 23 mg/dL (7-26); BUN/CREATININE RATIO 25 (6-25); CALCIUM 8.8 mg/dL (8.4-10.2); CARBON DIOXIDE 18 mmol/L (22-29); CHLORIDE 114 mmol/L (98-107); CREATININE, SERUM 0.91 mg/dL (0.57-1.11); EST GLOMERULAR FILTRATION RATE > 60 ML/MIN (60-); GLUCOSE 74 mg/dL (74-118); SODIUM 139 mmol/L (136-145)
[2019-03-27] MEDS: SODIUM CHLORIDE 0.9% 1000ML 1,000 ML IV SCH ×3 (07:20→19:00)
[2019-03-27 07:25] LABS: CREATINE KINASE MB 0.4 ng/mL (0-5.0)
--- NOTE | 2019-03-27 08:00 | NUR ---
pt AAOx3, c/o pain to abd and shoulder area. vs stable. primarily scottish speaking. able to amb to bathroom with stand by assist/walker
[2019-03-27] MEDS: PANTOPRAZOLE 40 MG 10ML VIAL IV SCH (08:40)
[2019-03-27] MEDS: ONDANSETRON HCL INJ 2MG/ML 2ML 2 MG/ML VIAL IV PRN ×2 (08:40→20:50)
[2019-03-27] MEDS: CEFEPIME 2 GM/NS 0.9% 100 ML 100 ML IV SCH ×2 (12:17→23:15)
[2019-03-27] MEDS: KETOROLAC TROMETHAMINE 30 MG/ML VIAL IV SCH ×2 (13:00→17:20)
--- NOTE | 2019-03-27 15:40 | NUR ---
pt off unit for procedure, vs stable
--- NOTE | 2019-03-27 17:00 | NUR ---
pt returned from test, vs stable. paged for results
[2019-03-27 18:51] LABS: CREATINE KINASE 39 IU/L (29-168)
--- NOTE | 2019-03-27 19:05 | Diagnostic Imaging Report ---
Hepatobiliary Scan with Gallbladder Ejection Fraction Clinical information: RUQ abdominal pain and cholelithiasis Technique: Following intravenous administration of 6.5 millicuries of Tc-99m mebrofenin, dynamic images of the abdomen in the anterior projection were obtained through 30 minutes. Sincalide (CCK analog) 1.5 micrograms was administered intravenously over 30 minutes with additional imaging for determination of gallbladder ejection fraction. Discussion: Perfusion of the liver is normal. Extraction of tracer by the liver parenchyma is normal. Tracer appears promptly within the biliary tract. The gallbladder begins to fill at 15 minutes post injection of tracer and fills adequately. Tracer is seen in the small bowel during the sincalide infusion. There is no contractile response by the gallbladder to the pharmacologic dose of sincalide. No emptying of the gallbladder occurs during the 30 minute infusion. Impression: 1. Filling of the gallbladder excludes acute cystic duct obstruction/acute cholecystitis. 2. The gallbladder ejection fraction is undefined as there is no emptying of the gallbladder during the infusion of sincalide. This absence of a contractile response to sincalide supports the clinical diagnosis of chronic cholecystitis/gallbladder dyskinesia. Signed by: Dr. Liliane Yao M.D. on 03/27/2019 7:02 PM
--- NOTE | 2019-03-27 19:13 | NUR ---
Report received from YULY England. Patient received alert/oriented x3 resting on her bed, complaining abdominal pain.No respiratory distress noted. Sp02 maintained 100% with RA. Bed in lower position,locked. Call pearson within reach. Paged Dr. Kunz to get ordered. Waiting for MD'S call back. Will continue to monitor.
--- NOTE | 2019-03-27 19:15 | NUR ---
Paged to get ordered for patient's pain medicines. Waiting for MD's call back.
[2019-03-27] MEDS ORDERED: HYDROMORPHONE 1MG/1ML INJ IV PRN (20:30)
[2019-03-27] MEDS: HYDROMORPHONE 2MG/ML 2 MG/ML ML IV PRN (20:50)
--- NOTE | 2019-03-27 23:58 | NUR ---
Report given to YULY Valdez. Patient transferred by wheelchair by [facility] to [facility] with stable condition.
[2019-03-28] VITALS (8 sets, daily range): BP systolic 106–152; BP diastolic 60–80
--- NOTE | 2019-03-28 00:15 | NUR ---
Received patient from [place] [id number] via wheelchair. AAOx3 and no respiratory distress. Denies pain at this time. Had pain medication prior to arrival to floor. Call light within reach and instructed to call for assistance.
--- NOTE | 2019-03-28 00:47 | NUR ---
Received call from Dr. Linda Lynne. Will see patient in the am.
[2019-03-28] MEDS: SODIUM CHLORIDE 0.9% 1000ML 1,000 ML IV SCH ×4 (01:32→22:34)
[2019-03-28] MEDS: HYDROMORPHONE 2MG/ML 2 MG/ML ML IV PRN ×6 (02:36→19:07)
--- NOTE | 2019-03-28 02:36 | NUR ---
PATIENT C/O SEVERE PAIN TO THE BACK WITH PAIN SCORE #10, MEDICATED WITH DILAUDID ORDERED. CALL LIGHT WITHIN EASY REACH, SHE'S INSTRUCTED TO CALL FOR ASSISTANCE UPON GETTING OUT OF THE BED. PRIMARY NURSE NOTIFIED THAT THE PATIENT WAS MEDICATED WITH DILAUDID FOR PAIN.
--- NOTE | 2019-03-28 07:00 | NUR ---
BEDSIDE SHIFT REPORT RECEIVED FROM NIGHT RN. PT DENIES NEEDS AT THIS TIME.
[2019-03-28] MEDS: PANTOPRAZOLE 40 MG 10ML VIAL IV SCH (08:25)
[2019-03-28] MEDS: CEFEPIME 2 GM/NS 0.9% 100 ML 100 ML IV SCH ×2 (11:50→22:43)
[2019-03-28] MEDS: ONDANSETRON HCL INJ 2MG/ML 2ML 2 MG/ML VIAL IV PRN ×2 (11:50→19:06)
[2019-03-29] VITALS (8 sets, daily range): BP systolic 126–166; BP diastolic 66–88
[2019-03-29] MEDS: HYDROMORPHONE 2MG/ML 2 MG/ML ML IV PRN ×3 (03:02→13:04)
[2019-03-29] MEDS: ONDANSETRON HCL INJ 2MG/ML 2ML 2 MG/ML VIAL IV PRN ×3 (03:02→13:04)
[2019-03-29] MEDS: SODIUM CHLORIDE 0.9% 1000ML 1,000 ML IV SCH ×3 (05:20→16:50)
[2019-03-29] MEDS: PANTOPRAZOLE 40 MG 10ML VIAL IV SCH (09:43)
[2019-03-29] MEDS: CEFEPIME 2 GM/NS 0.9% 100 ML 100 ML IV SCH ×2 (11:18→23:20)
[2019-03-29] MEDS: ACYCLOVIR 15 GM OINT TP SCH ×5 (11:40→23:05)
[2019-03-29] MEDS: FAMCICLOVIR 500 MG TAB PO SCH ×2 (15:04→21:00)
[2019-03-29] MEDS: HYDROCODONE/APAP 10MG-325MG TAB PO PRN ×2 (16:11→21:00)
[2019-03-29] MEDS: PREGABALIN 75 MG CAP PO SCH (16:11)
[2019-03-30] VITALS (8 sets, daily range): BP systolic 129–179; BP diastolic 66–87
[2019-03-30] MEDS: ACYCLOVIR 15 GM OINT TP SCH ×8 (00:42→20:53)
[2019-03-30] MEDS: HYDROCODONE/APAP 10MG-325MG TAB PO PRN ×5 (01:00→23:24)
[2019-03-30] MEDS: HYDROMORPHONE 2MG/ML 2 MG/ML ML IV PRN ×4 (03:07→20:53)
[2019-03-30] MEDS: SODIUM CHLORIDE 0.9% 1000ML 1,000 ML IV SCH ×2 (04:14→07:00)
[2019-03-30] MEDS: FAMCICLOVIR 500 MG TAB PO SCH ×3 (08:11→20:53)
[2019-03-30] MEDS: PREGABALIN 75 MG CAP PO SCH ×2 (08:11→17:15)
[2019-03-30] MEDS: PANTOPRAZOLE 40 MG 10ML VIAL IV SCH (08:13)
[2019-03-30] MEDS: CEFEPIME 2 GM/NS 0.9% 100 ML 100 ML IV SCH ×3 (10:30→23:00)
[2019-03-30] MEDS ORDERED: HYDRALAZINE HCL 20 MG/ML VIAL IV PRN (16:45)
--- NOTE | 2019-03-30 18:16 | Progress Note ---
DATE: Internal Medicine Progress Note The patient was going to have cholecystectomy due to cholecystitis and then she developed shingles. She was started on famciclovir. Her blood pressure was up also. PHYSICAL EXAMINATION: VITAL SIGNS: Blood pressure is 166/84, temperature 98.2, heart rate 85 per minute, respiratory rate is 20 per minute, oxygen saturation 95%. HEART: Showed regular rhythm. Normal S1, S2 sound. LUNGS: Clear bilaterally. ABDOMEN: Soft. LABORATORY DATA: On the BMP; sodium 139, potassium 4.0, chloride 114, CO2 of 18, BUN 23, creatinine 0.91, glucose 74. On the CBC; white count 6.50, hemoglobin 13.0, hematocrit 38.9, platelet count 274,000. PTT 12.8, INR 0.92, PTT 30.8. AST 21, ALT 18, total bilirubin 0.4, alkaline phosphatase 90. IMPRESSION: 1. Herpes zoster on the abdomen. 2. Acute cholecystitis. 3. Uncontrolled hypertension. 4. Obesity. PLAN OF TREATMENT: Continue cefepime 1 g IV twice a day. Continue normal saline 150 mL an hour, which we are going to cut down to 80 mL an hour. Continue Zofran 4 mg IV q.4 hours as needed, Protonix 40 mg daily, Mangum 1 tablet q.4 hours as needed, Dilaudid 1 mg IV q.3 hours as needed, famciclovir 500 mg three times a day, Lyrica 75 mg twice a day. Contact isolation. We are going to put her on Norvasc 5 mg daily, and also hydralazine 10 mg IV q.4 hours as needed. MD JUAN Hubbard/LIZETT /[id number]
[2019-03-30] MEDS: ONDANSETRON HCL INJ 2MG/ML 2ML 2 MG/ML VIAL IV PRN (20:53)
--- NOTE | 2019-03-30 22:50 | NUR ---
PT C/O BURNING TO RIGHT HAND IV. D/C IV. STARTED NEW IV TO LEFT AC. PATIENT TOLERATED WELL
[2019-03-31] VITALS (7 sets, daily range): BP systolic 127–167; BP diastolic 75–90
[2019-03-31] MEDS: ACYCLOVIR 15 GM OINT TP SCH ×8 (00:35→22:45)
[2019-03-31] MEDS: ONDANSETRON HCL INJ 2MG/ML 2ML 2 MG/ML VIAL IV PRN ×2 (05:00→23:49)
[2019-03-31] MEDS: HYDROMORPHONE 2MG/ML 2 MG/ML ML IV PRN ×3 (05:00→23:49)
[2019-03-31] MEDS ORDERED: SODIUM CHLORIDE 0.9% 250ML 250 ML ONE (05:29)
[2019-03-31] MEDS: PANTOPRAZOLE 40 MG 10ML VIAL IV SCH (09:10)
[2019-03-31] MEDS: FAMCICLOVIR 500 MG TAB PO SCH ×3 (09:10→21:11)
[2019-03-31] MEDS: PREGABALIN 75 MG CAP PO SCH ×2 (09:10→16:44)
[2019-03-31] MEDS: HYDROCODONE/APAP 10MG-325MG TAB PO PRN ×3 (09:10→21:11)
[2019-03-31] MEDS: AMLODIPINE BESYLATE 5 MG TAB PO SCH (09:10)
--- NOTE | 2019-03-31 10:31 | NUR ---
Per Evangelina in pharmacy, the hospital does not have any Acyclovir ointment available. She states we have to call other hospitals to borrow. She told me she will bring it when the medication becomes available.
[2019-03-31] MEDS: CEFEPIME 2 GM/NS 0.9% 100 ML 100 ML IV SCH ×2 (11:13→23:25)
--- NOTE | 2019-03-31 14:40 | NUR ---
Visit made by the Spiritual Care Department Pastoral Visitor, Tanisha Phan. PV provided pastoral presence, hospitality, and supportive listening. Pastoral Visitor informed pt/family of the scope of Design Sales Consultant Services and availability. MANAS PANIAGUA [employer] Consultant Spiritual Care Department O: [phone] Pager: [phone] ([phone] number calling from)
[2019-03-31] MEDS ORDERED: IBUPROFEN 200 MG TAB PO PRN (16:45)
--- NOTE | 2019-03-31 18:20 | Progress Note ---
DATE: Internal Medicine Progress Note SUBJECTIVE: The patient is still complaining of pain because of a shingle that the she had on the left side of the chest. Otherwise, she does not have any other significant complaint. PHYSICAL EXAMINATION: HEART: Showed regular rhythm. Normal S1, S2 sound. LUNGS: Clear bilaterally. ABDOMEN: Soft. She had a blister on the left flank and left upper quadrant. EXTREMITIES: Showed no evidence of cyanosis or hematoma. VITAL SIGNS: Blood pressure 127/75, temperature 98.9, heart rate 92 per minute, respiratory rate 18 per minute, and oxygen saturation 97%. LABORATORY DATA: On the blood work, we have BMP, sodium 139, potassium 4.0, chloride 114, CO2 of 18, BUN 23, creatinine 0.91, glucose 74. CBC, white blood count 6.50, hemoglobin 13.0, hematocrit 38.9, and platelet count 274,000. PT 12.8, INR 0.92, and PTT 30.8. AST 21, ALT 18, total bilirubin 0.4, and alkaline phosphatase 90. IMPRESSION: 1. Herpes zoster on the left side of the abdomen. 2. Dysfunctional gallbladder. 3. Uncontrolled hypertension. 4. Obesity. Treatment is going to be contact isolation, of course, because of herpes zoster. Continue cefepime 2 g IV twice a day, Zofran 4 mg IV q.4 hours, Protonix 40 mg daily, amlodipine 5 mg daily, hydralazine 10 mg q.4 hours, Lyrica 75 mg twice a day, Dilaudid 1 mg IV q.3 hours as needed, Laurel 1 tablet q.4 hours as needed, acyclovir ointment 4-5 times a day q.3 hours, and famciclovir 500 mg three times a day. She will be DNR. MD JUAN Hubbard/LIZETT /[id number]
[2019-04-01] VITALS (7 sets, daily range): BP systolic 105–170; BP diastolic 64–95
[2019-04-01] MEDS: ACYCLOVIR 15 GM OINT TP SCH ×8 (01:45→22:17)
[2019-04-01] MEDS: ONDANSETRON HCL INJ 2MG/ML 2ML 2 MG/ML VIAL IV PRN (06:00)
[2019-04-01] MEDS: HYDROMORPHONE 2MG/ML 2 MG/ML ML IV PRN (06:00)
--- NOTE | 2019-04-01 07:00 | NUR ---
BEDSIDE SHIFT RECEIVED FROM FELT CUTTER RN. BED IS LOCKED AND AT LOWEST POSITION. BED ALARM IS ON. CALL MICHELLE WITH IN REACH.PT DENIES NEEDS AT THIS TIME.
[2019-04-01] MEDS: FAMCICLOVIR 500 MG TAB PO SCH ×2 (09:31→14:36)
[2019-04-01] MEDS: AMLODIPINE BESYLATE 5 MG TAB PO SCH (09:31)
[2019-04-01] MEDS: PANTOPRAZOLE 40 MG 10ML VIAL IV SCH (09:31)
[2019-04-01] MEDS: PREGABALIN 75 MG CAP PO SCH ×2 (09:31→18:13)
[2019-04-01] MEDS: CEFEPIME 2 GM/NS 0.9% 100 ML 100 ML IV SCH (11:02)
[2019-04-01] MEDS: CEFAZOLIN SOD 1 GM/NS 50ML 50 ML IV SCH (18:14)
--- NOTE | 2019-04-01 19:00 | NUR ---
BEDSIDE SHIFT REPORT GIVEN TO TIRE REBUILDER RN. PT DENIED FURTHER NEEDS.
[2019-04-01] MEDS: ACYCLOVIR SODIUM INJ 750 MG in SODIUM CHLORIDE 0.9% 250ML 250 ML IV SCH (19:14)
--- NOTE | 2019-04-01 20:49 | Diagnostic Imaging Report ---
Hip complete Indication: Pain, no trauma history provided ^left hip/leg pain Technique: Portable AP and frogleg views of left hip obtained. Comparison: 03/26/2019 Findings: Left hip remains properly located. The cortex appears intact throughout. Trochanters appear intact. No significant spurring from the acetabulum. Adjacent pubic rami appear intact. Lower lumbar spine demonstrates no abnormalities. Vascular calcification in the pelvis and proximal lower extremities. IMPRESSION: Left hip properly located. No abnormalities to explain pain. Signed by: Dr. Alex Freeman MD on 04/01/2019 8:45 PM
--- NOTE | 2019-04-01 21:39 | Consultation ---
DATE OF CONSULTATION: REASON FOR CONSULTATION: Herpes zoster affecting her left side of the back. Thank you so much for asking me to see this patient. HISTORY OF PRESENT ILLNESS: This patient is very pleasant 58-year-old Indian female, who comes into the emergency room with severe rash and pain affecting her left side of back, this started couple of days ago. The patient is currently lying in bed, complaining of severe pain. The patient was admitted. She is currently on cefepime, famciclovir, and acyclovir. LABORATORY DATA: Reviewed. White count 5.6, hemoglobin 12.0, and hematocrit 35. Her sodium 139, potassium 4.0, and creatinine 0.93. Urine drug screen was negative. Urine culture was negative. Blood cultures were negative. MEDICATIONS: She is currently on famciclovir, acyclovir ointment, and cefepime. PHYSICAL EXAMINATION: GENERAL: She is currently alert, oriented, does not seem to be in acute distress. VITAL SIGNS: Stable, currently afebrile. HEENT: Normocephalic. Does not appear icteric. NECK: Supple. CHEST: Clear bilateral. HEART: S1 and S2. No S3, S4, or murmur. ABDOMEN: Soft. Bowel sounds present. No tenderness. EXTREMITIES: No edema. SKIN: She has significant boils and lesions noted affecting the left side of her dermatome. There is erythema and edema involving the dermatome from the back all the way to the abdominal wall. IMPRESSION: 1. Severe herpes zoster, we will put on IV acyclovir. 2. Severe pain, we will start on Decadron. 3. Other medical problem is component of cellulitis. We will add Ancef. Discontinue cefepime. We will follow with you. MD ZARI Zarate/LIZETT /[id number]
[2019-04-02] VITALS (8 sets, daily range): BP systolic 124–157; BP diastolic 73–91
[2019-04-02] MEDS: ACYCLOVIR 15 GM OINT TP SCH ×8 (01:00→22:00)
[2019-04-02] MEDS: CEFAZOLIN SOD 1 GM/NS 50ML 50 ML IV SCH ×4 (01:30→17:33)
[2019-04-02] MEDS: ACYCLOVIR SODIUM INJ 750 MG in SODIUM CHLORIDE 0.9% 250ML 250 ML IV SCH ×3 (02:20→18:47)
[2019-04-02] MEDS: HYDROMORPHONE 2MG/ML 2 MG/ML ML IV PRN ×2 (03:20→18:48)
--- NOTE | 2019-04-02 07:00 | NUR ---
BEDSIDE SHIFT RECEIVED FROM CHOIR DIRECTOR RN. BED IS LOCKED AND AT LOWEST POSITION. BED ALARM IS ON. CALL MICHELLE WITH IN REACH.PT DENIES NEEDS AT THIS TIME.
--- NOTE | 2019-04-02 09:30 | NUR ---
PT COMPLAINT OF PAIN ON IV SITE AND DOESN'T WANT ANY MEDICINE THROUGH IV. PT VERBALIZED NEED OF PICC LINE AND INFORMED PAM PRINTING MACHINE OPERATOR TAPE RULES ABOUT PICC LINE.
[2019-04-02] MEDS: PREGABALIN 75 MG CAP PO SCH ×2 (09:33→17:31)
[2019-04-02] MEDS: AMLODIPINE BESYLATE 5 MG TAB PO SCH (09:33)
--- NOTE | 2019-04-02 12:18 | NUR ---
CALLED DR RAMOS OFFICE AND LEFT MESSAGE
--- NOTE | 2019-04-02 15:45 | NUR ---
DR ERICKSON AT BEDSIDE TO SEE THE PT.
--- NOTE | 2019-04-02 16:00 | NUR ---
LEFT FORE ARM IV DISCONTINUED, SINCE PICC LINE IS OKAY TO USE PER DR. ERICKSON.TIP INTACT AND DRESSING APPLIED. PT DENIED FURTHER NEEDS.
--- NOTE | 2019-04-02 16:35 | Diagnostic Imaging Report ---
EXAMINATION: CHEST XRAY LINE PLACEMENT INDICATION: Status post PICC. COMPARISON: CT chest 03/26/2019, chest radiograph 03/26/2019. FINDINGS: TUBES and LINES: Interval placement of right-sided PICC, which terminates in the expected location of the mid SVC. LUNGS: Lungs are not well inflated. There is no evidence of pneumonia or pulmonary edema. PLEURA: No pleural effusion or pneumothorax. HEART AND MEDIASTINUM: The cardiomediastinal silhouette is unremarkable. BONES AND SOFT TISSUES: No acute osseous abnormality. UPPER ABDOMEN: No free air under the diaphragm. IMPRESSION: Interval placement of a right-sided PICC terminating in the mid SVC. No evidence of pneumothorax. Signed by: Dr. Wong Núñez MD on 04/02/2019 4:31 PM
[2019-04-02] MEDS: PANTOPRAZOLE 40 MG 10ML VIAL IV SCH (17:31)
[2019-04-02] MEDS: DEXAMETHASONE SOD PHOS INJ 4 MG/ML VIAL IV SCH (17:31)
--- NOTE | 2019-04-02 19:00 | NUR ---
BEDSIDE SHIFT REPORT GIVEN TO CHUCKING AND BORING MACHINE OPERATOR RN. PT DENIED FURTHER NEEDS.
--- NOTE | 2019-04-02 20:00 | NUR ---
INITIAL ASSESSMENT COMPLETE, FAMILY AT BEDSIDE, NO DISTRESS NOTED, VS STABLE, C/O PAIN BURNING TO SIDE AND BACK WHERE SHINGLE LESIONS ARE, TOLD TO CALL FOR NEEDS, CONTINUE TO PUT CREAM ON SITES, CALL LIGHT IN REACH
[2019-04-03] VITALS (8 sets, daily range): BP systolic 121–168; BP diastolic 61–90
[2019-04-03] MEDS: ACYCLOVIR 15 GM OINT TP SCH ×8 (01:00→22:00)
[2019-04-03] MEDS: CEFAZOLIN SOD 1 GM/NS 50ML 50 ML IV SCH ×3 (01:30→15:51)
[2019-04-03] MEDS: ACYCLOVIR SODIUM INJ 750 MG in SODIUM CHLORIDE 0.9% 250ML 250 ML IV SCH ×3 (02:00→18:00)
[2019-04-03] MEDS ORDERED: SODIUM CHLORIDE 0.9% 250ML 250 ML ONE (02:09)
[2019-04-03] MEDS: HYDROMORPHONE 2MG/ML 2 MG/ML ML IV PRN ×2 (03:48→15:52)
--- NOTE | 2019-04-03 07:04 | NUR ---
PT AWAKE EASILY, NO DISTRESS NOTED, BURNING TO LEFT SIDE, PICC LINE INTACT, VS STABLE
[2019-04-03] MEDS: AMLODIPINE BESYLATE 5 MG TAB PO SCH (08:44)
[2019-04-03] MEDS: PREGABALIN 75 MG CAP PO SCH ×2 (08:44→15:51)
[2019-04-03] MEDS: DEXAMETHASONE SOD PHOS INJ 4 MG/ML VIAL IV SCH (08:45)
[2019-04-03] MEDS: PANTOPRAZOLE 40 MG 10ML VIAL IV SCH (08:45)
[2019-04-03] MEDS ORDERED: ONDANSETRON HCL 4 MG ORAL DISINTEGRATING TAB PO PRN (10:15)
--- NOTE | 2019-04-03 19:00 | NUR ---
Report given to oncoming nurse of patient's status. Resting in bed. No s/s of acute distress noted.
--- NOTE | 2019-04-03 19:30 | NUR ---
Patient received sitting up in bed. AAO x 3. No c/o pain. No signs of respiratory distress. Fall precautions implemented. Patient instructed to call for assistance when needed. Call light within reach.
[2019-04-04 00:23] VITALS: BP 156/89
[2019-04-04] MEDS ORDERED: SODIUM CHLORIDE 0.9% 250ML 250 ML ONE (00:45)
[2019-04-04] MEDS: ACYCLOVIR 15 GM OINT TP SCH ×5 (01:15→12:04)
[2019-04-04] MEDS: CEFAZOLIN SOD 1 GM/NS 50ML 50 ML IV SCH ×2 (01:16→09:21)
[2019-04-04] MEDS: HYDROCODONE/APAP 10MG-325MG TAB PO PRN ×2 (01:18→05:25)
[2019-04-04] MEDS: ACYCLOVIR SODIUM INJ 750 MG in SODIUM CHLORIDE 0.9% 250ML 250 ML IV SCH ×2 (02:32→10:00)
[2019-04-04] MEDS ORDERED: HYDROMORPHONE 2MG/ML 2 MG/ML ML IV PRN (05:30)
[2019-04-04 05:47] VITALS: BP 157/81
[2019-04-04 05:57] LABS: BASOPHILS # (AUTO) 0.1 (0.0-0.1); BASOPHILS % 0.8 % (0.0-1.0); EOSINOPHILS % 0.3 % (0.0-6.0); HEMATOCRIT 31.8 % (34.2-44.1); HEMOGLOBIN 10.9 g/dL (12.0-16.0); LYMPHOCYTES # (AUTO) 2.4 (1.0-3.2); LYMPHOCYTES % 39.1 % (18.0-39.1); MEAN CORPUSCULAR HEMOGLOBIN 30.1 pg (28-32); MEAN CORPUSCULAR HGB CONC 34.3 g/dL (31-35); MEAN CORPUSCULAR VOLUME 87.8 fL (81-99); MONOCYTES # (AUTO) 0.5 (0.2-0.8); MONOCYTES % 7.9 % (4.4-11.3); NEUTROPHILS # (AUTO) 3.1 (2.1-6.9); NEUTROPHILS % 51.6 % (38.7-80.0); PLATELET COUNT 240 x10e3/uL (140-360); RED BLOOD COUNT 3.62 x10e6/uL (3.6-5.1); RED CELL DISTRIBUTION WIDTH 11.8 % (11.7-14.4)
[2019-04-04 06:08] LABS: ANION GAP 9.5 mmol/L (8-16); BLOOD UREA NITROGEN 14 mg/dL (7-26); BUN/CREATININE RATIO 20 (6-25); CALCIUM 9.1 mg/dL (8.4-10.2); CARBON DIOXIDE 26 mmol/L (22-29); CHLORIDE 103 mmol/L (98-107); CREATININE, SERUM 0.69 mg/dL (0.57-1.11); EST GLOMERULAR FILTRATION RATE > 60 ML/MIN (60-); GLUCOSE 105 mg/dL (74-118); POTASSIUM 3.5 mmol/L (3.5-5.1); SODIUM 135 mmol/L (136-145)
--- NOTE | 2019-04-04 07:00 | NUR ---
Shift report given to oncoming nurse
[2019-04-04] MEDS ORDERED: PANTOPRAZOLE SOD 40 MG TABEC PO SCH (07:30)
[2019-04-04 08:00] VITALS: BP 160/91
[2019-04-04 08:50] VITALS: BP 160/91
[2019-04-04] MEDS: AMLODIPINE BESYLATE 5 MG TAB PO SCH (09:21)
[2019-04-04] MEDS: DEXAMETHASONE SOD PHOS INJ 4 MG/ML VIAL IV SCH (09:21)
[2019-04-04] MEDS: PREGABALIN 75 MG CAP PO SCH (09:21)
[2019-04-04] MEDS ORDERED: famvir PO (11:34)
[2019-04-04] MEDS ORDERED: zovirax TOP (11:36)
[2019-04-04 12:00] VITALS: BP 130/82
--- NOTE | 2019-04-04 13:40 | NUR ---
Right PICC line discontinued as ordered. 35 cm long. No signs of infiltration noted. 2x2 gauze and tape placed. Taken via wheelchair by PCT to personal car. AAOX4 to time, person,place, situation. Respirations even and unlabored. Denies pain. Discharge instructions, rx, and all personal belongings taken with patient.
== END 2019-04-04 13:40 | disposition home or self-care (01) | DRG 444 ==
LOC: ER 20:50 → ERHOLD 03-27 01:24 → INTOOBSV 03-27 01:24 → IMCU 03-27 02:25 → MED/SURG2 03-28 00:04 → OBSVTOIN 03-31 14:14
PROC: 02HV33Z Insertion of Infusion Device into Superior Vena Cava, Percutaneous Approach (ICD-10-PCS; principal; 2019-04-02)
DX: K80.01 Calculus of gallbladder with acute cholecystitis with obstruction (principal); J96.90 Respiratory failure, unspecified, unspecified whether with hypoxia or hypercapnia; N30.00 Acute cystitis without hematuria; L03.312 Cellulitis of back [any part except buttock and flank]; L03.311 Cellulitis of abdominal wall; I95.89 Other hypotension; B02.9 Zoster without complications
CPT/HCPCS: 36415; 36569; 71045; 71275; 74177; 78227; 80048; 80053; 80307; 81001; 82150; 82550; 82553; 83605; 83690; 83735; 83880; 84484; 85025; 85610; 85730; 86140; 87040; 87086; 93005; 93971; 97139; 99284; A9537; G0378; J0360; J0690; J0696; J1100; J1885; J2270; J2405; J3370; J7030; J7050; Q9967

== ENCOUNTER → 2019-04-18 | Outpatient (CLI) | payer MEDICARE ==
[~2019-04-18] MED LIST changes: +famvir PO; +zovirax TOP
--- NOTE | 2019-04-18 11:50 | Diagnostic Imaging Report ---
History: Cervical radiculopathy, neck and left arm pain. Comparison studies: None Technique: Sagittal T1, T2 and IR, axial T2 and axial gradient echo Intravenous contrast: None Findings: Alignment: Normal lordosis. No scoliosis. Cervicomedullary junction: No abnormalities. Patent foramen magnum. Soft tissues: No T2 hyperintense inflammatory changes. Spinal cord: Normal in size and signal from the foramen magnum through T1. Vertebrae: No fractures, infection or neoplasm. Degenerative changes: Disc height is maintained. Patent canal and foramina. No disc herniation or nerve root impingement. IMPRESSION: No abnormalities. Specifically, patent canal and foramina. No disc herniation or nerve root impingement. Signed by: Dr. Justin Faulnker M.D. on 04/18/2019 11:47 AM
== END ==
LOC: MRI 09:26
PROVIDERS: ATTEND Pain Medicine Pain Medicine
DX: M54.12 Radiculopathy, cervical region (principal)
CPT/HCPCS: 72141

== ENCOUNTER 2019-04-26 20:24 | Emergency (ER) | payer OTHER, MEDICARE ==
[~2019-04-26] VITALS: Ht 162.6 cm; Wt 81.6 kg
[~2019-04-26 20:24] MED LIST changes: +LYRICA25 MG PO; +PREDNISONE5 MG PO
--- OUTSIDE RECORDS SUMMARY | 2019-04-26 20:26 | XMS REPORT | Clinical Summary ---
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
--- OUTSIDE RECORDS SUMMARY | 2019-04-26 20:27 | XMS REPORT | Continuity of Care Document ---
Author Author [facility] Interface Address Unknown Phone Unavailable Problems Problem Status Onset Date Classification Date Reported Comments Source Pain due to internal orthopedic prosthetic device Active 02/22/2018 12/04/2018 [facility] Impaired functional mobility, balance, gait, and endurance Active 11/03/2017 12/04/2018 [facility] Reactive airway disease without complication Active 10/26/2017 12/04/2018 [facility] Primary insomnia Active 10/26/2017 12/04/2018 [facility] Gastroesophageal reflux disease without esophagitis Active 10/26/2017 12/04/2018 [facility] Chronic seasonal allergic rhinitis due to pollen Active 10/26/2017 12/04/2018 [facility] S/P total knee arthroplasty, right Active 10/26/2017 12/04/2018 [facility] Grief Active 06/16/2016 12/04/2018 [facility] Trigeminal neuralgia Active 03/11/2015 12/04/2018 [facility] Exotropia of both eyes Active 03/11/2015 12/04/2018 [facility] 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 Active 10/10/2012 12/04/2018 [facility] Elevated LFTs Active 10/10/2012 12/04/2018 [facility] Calcaneal spur Active 06/11/2010 12/04/2018 [facility] Chronic midline low back pain with bilateral sciatica Active 03/10/2010 12/04/2018 [facility] Acute pain of right knee Active 08/04/2008 12/04/2018 [facility] Pain in joint, ankle and foot Active 08/04/2008 12/04/2018 [facility] Essential hypertension Active 12/04/2018 [facility] Hyperlipemia Active 12/04/2018 [facility] Essential hypertension with goal blood pressure less than 140/90 Active 12/04/2018 [facility] Easy bruising Active 12/04/2018 [facility] Mild intermittent reactive airway disease without complication Active 12/04/2018 [facility] Breast cancer screening Active 12/04/2018 [facility] Hyperlipidemia, unspecified hyperlipidemia type Active 12/04/2018 [facility] Flu vaccine need Active 12/04/2018 [facility] Severe single current episode of major depressive disorder, without psychotic features Active 12/04/2018 [facility] KODY Active 12/04/2018 [facility] Insomnia, unspecified type Active 12/04/2018 [facility] Memory change Active 12/04/2018 [facility] Acute sinusitis, unspecified Active 12/04/2018 [facility] Chest pain, unspecified type Active 12/04/2018 [facility] Uncontrolled hypertension Active 12/04/2018 [facility] Mixed hyperlipidemia Active 12/04/2018 [facility] Acute meniscal tear of knee, unspecified laterality, sequela Active 12/04/2018 [facility] Chronic left-sided headaches Active 12/04/2018 [facility] Primary osteoarthritis of right knee Active 12/04/2018 [facility] Chronic midline low back pain without sciatica Active 12/04/2018 [facility] Pain of both hip joints Active 12/04/2018 [facility] Dietary counseling Active 12/04/2018 [facility] Exercise counseling Active 12/04/2018 [facility] MDD , recurrent episode, moderate Active 12/04/2018 [facility] Essential hypertension, benign Active 12/04/2018 [facility] Other hyperlipidemia Active 12/04/2018 [facility] Sore throat Active 12/04/2018 [facility] Cough Active 12/04/2018 [facility] Chronic pain of right knee Active 12/04/2018 [facility] Pain due to internal orthopedic prosthetic device, initial encounter Active 12/04/2018 [facility] Headache, unspecified headache type Active 12/04/2018 [facility] Severe episode of recurrent major depressive disorder, without psychotic features Active 12/04/2018 [facility] History of total knee arthroplasty, right Active 12/04/2018 [facility] Medications Medication Details Route Status Patient Instructions Ordering Provider Order Date Source metoprolol tartrate (LOPRESSOR) 50 mg tablet TAKE 1 TABLET BY MOUTH TWICE DAILY Active 11/04/2018 [facility] DEXILANT 30 mg delayed release capsule TAKE 1 CAPSULE BY MOUTH EVERY DAY Active 11/04/2018 [facility] atorvastatin (LIPITOR) 20 mg tablet Take 1 tablet by mouth at bedtime nightly. Oral Active 08/21/2018 [facility] buPROPion (WELLBUTRIN XL) 150 mg extended release tablet Take 1 tablet by mouth every morning. Oral Active 08/14/2018 [facility] mirtazapine (REMERON) 30 mg tablet Take 1 tablet by mouth at bedtime nightly. Oral Active 08/14/2018 [facility] cetirizine (ZYRTEC) 10 mg tablet TAKE 1 TABLET BY MOUTH EVERY DAY Active 07/27/2018 [facility] DEXILANT 30 mg delayed release capsule TAKE 1 CAPSULE BY MOUTH EVERY DAY No Longer Active 07/20/2018 [facility] amLODIPine (NORVASC) 10 mg tablet Take 1 tablet by mouth daily. Oral Active 06/21/2018 [facility] metoprolol tartrate (LOPRESSOR) 50 mg tablet Take 1 tablet by mouth 2 times daily. Oral No Longer Active 06/13/2018 [facility] lisinopril (PRINIVIL, ZESTRIL) 40 mg tablet Take 1 tablet by mouth daily. Oral Active 06/13/2018 [facility] traMADol (ULTRAM) 50 mg tablet Take 1 tablet by mouth every 8 hours as needed for Pain. Oral Active 06/13/2018 [facility] gabapentin (NEURONTIN) 600 mg tablet Take 1 tablet by mouth 2 times daily. Oral Active 06/13/2018 [facility] amLODIPine (NORVASC) 5 mg tablet Take 1 tablet by mouth daily. Oral No Longer Active 06/13/2018 [facility] mirtazapine (REMERON) 30 mg tablet Take 1 tablet by mouth at bedtime nightly. Oral No Longer Active 04/18/2018 [facility] metoprolol tartrate (LOPRESSOR) 50 mg tablet TAKE 1 TABLET BY MOUTH TWICE DAILY No Longer Active 04/10/2018 [facility] lisinopril (PRINIVIL, ZESTRIL) 40 mg tablet TAKE 1 TABLET BY MOUTH EVERY DAY No Longer Active 04/10/2018 [facility] mirtazapine (REMERON) 30 mg tablet Take 1 tablet by mouth at bedtime nightly. Oral Inactive 04/03/2018 [facility] buPROPion (WELLBUTRIN XL) 150 mg extended release tablet Take 1 tablet by mouth every morning. Oral No Longer Active 04/03/2018 [facility] zolpidem (AMBIEN) 5 mg Tab Take 1 tablet by mouth nightly at bedtime as needed for Insomnia. Oral No Longer Active 04/03/2018 [facility] gabapentin (NEURONTIN) 800 mg tablet Take 1 tablet by mouth 2 times daily. Oral No Longer Active 03/27/2018 [facility] lisinopril (PRINIVIL, ZESTRIL) 40 mg tablet Take 1 tablet by mouth daily. Oral No Longer Active 03/27/2018 [facility] codeine-guaiFENesin (CHERATUSSIN AC) 10-100 mg/5 mL syrup Take 5 mL by mouth 3 times daily as needed for Cough. Oral No Longer Active 03/27/2018 [facility] traMADol (ULTRAM) 50 mg tablet Take 1 tablet by mouth every 8 hours as needed for Pain. Oral No Longer Active 03/22/2018 [facility] tiZANidine (ZANAFLEX) 4 mg tablet Take 1 tablet by mouth 3 times daily. Oral Active 03/13/2018 [facility] methocarbamol (ROBAXIN) 750 mg tablet Take 1 tablet by mouth 3 times daily. Oral No Longer Active 03/09/2018 [facility] naproxen (NAPROSYN) 250 mg tablet Take 1 tablet by mouth 2 times daily (with meals) for 30 days. Oral No Longer Active 03/08/2018 [facility] gabapentin (NEURONTIN) 300 mg capsule Take 2 capsules by mouth 3 times daily. Oral No Longer Active 03/08/2018 [facility] methocarbamol (ROBAXIN) 750 mg tablet Take 1 tablet by mouth 3 times daily. Oral No Longer Active 03/07/2018 [facility] gabapentin (NEURONTIN) 300 mg capsule Take 2 capsules by mouth 3 times daily. Oral No Longer Active 02/22/2018 [facility] mirtazapine (REMERON) 30 mg tablet Take 1 tablet by mouth at bedtime nightly. Oral No Longer Active 02/14/2018 [facility] gabapentin (NEURONTIN) 300 mg capsule Take 1 capsule by mouth 3 times daily for 30 days. Oral No Longer Active 01/11/2018 [facility] traMADol (ULTRAM) 50 mg tablet Take 1 tablet by mouth every 8 hours as needed for Pain. Oral No Longer Active 12/25/2017 [facility] cetirizine (ZYRTEC) 10 mg tablet Take 1 tablet by mouth daily. Oral No Longer Active 12/01/2017 [facility] traMADol (ULTRAM) 50 mg tablet Take 1 tablet by mouth every 6 hours as needed for Pain. Oral No Longer Active 11/30/2017 [facility] gabapentin (NEURONTIN) 600 mg tablet Take 1 tablet by mouth 3 times daily. Oral No Longer Active 11/30/2017 [facility] methocarbamol (ROBAXIN) 750 mg tablet Take 1 tablet by mouth 3 times daily. Oral No Longer Active 11/14/2017 [facility] traMADol (ULTRAM) 50 mg tablet Take 1 tablet by mouth every 6 hours as needed for Pain. Oral No Longer Active 11/08/2017 [facility] HYDROcodone-acetaminophen (NORCO) 10-325 mg tablet Take 1 to 2 tablets by mouth every 4 to 6 hours as needed for Pain. Oral No Longer Active 10/28/2017 [facility] traMADol (ULTRAM) 50 mg tablet Take 2 tablets by mouth every 6 hours as needed for Pain. Oral No Longer Active 10/28/2017 [facility] acetaminophen (TYLENOL) 325 mg tablet Take 2 tablets by mouth every 6 hours as needed for Pain. Oral No Longer Active 10/28/2017 [facility] aspirin 325 mg tablet Take 1 tablet by mouth 2 times daily for 40 days. Oral No Longer Active 10/28/2017 [facility] ergocalciferol (VITAMIN D2) 50,000 unit capsule Take 1 capsule by mouth weekly. Oral Active 10/28/2017 [facility] gabapentin (NEURONTIN) 300 mg capsule Take 1 capsule by mouth 3 times daily. Oral No Longer Active 10/28/2017 [facility] metoprolol tartrate (LOPRESSOR) 50 mg tablet Take 1 tablet by mouth 2 times daily. Oral No Longer Active 10/17/2017 [facility] amLODIPine (NORVASC) 2.5 mg tablet Take 1 tablet by mouth daily. Oral No Longer Active 10/17/2017 [facility] fluticasone-salmeterol (ADVAIR DISKUS) 250-50 mcg/dose diskus inhaler Inhale 1 Puff by mouth 2 times daily (autosubstitution from [employer]). Inhalation Active 10/16/2017 [facility] zolpidem (AMBIEN) 5 mg Tab Take 1 tablet by mouth nightly at bedtime as needed for Insomnia. Oral No Longer Active 09/15/2017 [facility] mirtazapine (REMERON) 30 mg tablet Take 1 tablet by mouth at bedtime nightly. Oral No Longer Active 09/15/2017 [facility] fluticasone (FLONASE) 50 mcg/actuation nasal spray Use 1 [place] in each nostril daily. Active 09/05/2017 [facility] dexlansoprazole (DEXILANT) 30 mg delayed release capsule Take 1 capsule by mouth daily. Oral No Longer Active 07/12/2017 [facility] lisinopril (PRINIVIL, ZESTRIL) 40 mg tablet Take 1 tablet by mouth daily. Oral No Longer Active 04/06/2017 [facility] topiramate (TOPAMAX) 25 mg tablet Take 2 tablets by mouth in the morning and 3 tablets at night. Oral Active 02/27/2017 [facility] Allergies, Adverse Reactions, Alerts Substance Category Reaction Severity Reaction type Status Date Reported Comments Source Immunizations Immunization Date Given Site Status Last Updated Comments Source Influenza, Vaccine<FLUCELVAX>(Multi-Dose) 08/21/2018 completed [facility] Influenza Vaccine, Seasonal, Injectable 09/04/2017 completed [facility] Influenza Vaccine 10/12/2016 completed [facility] Influenza Vaccine 09/03/2015 completed [facility] Influenza Vaccine 09/09/2014 completed [facility] Influenza Vaccine 11/13/2013 Not Given Deferred: Vaccine Unavailable [facility] Influenza Vaccine 08/15/2012 completed [facility] Influenza Vaccine 08/25/2011 completed [facility] Tdap Tetanus, diphtheria, acellular pertussis Vaccine 04/12/2011 completed [facility] Results Order Name Results Value Reference Range Date Interpretation Comments Source 12 LEAD EKG 12 LEAD EKG FOR [facility] Test Date:2018-07-05 Pat Name: ZONIA ARENAS Department: : Gender: FTechnician: [id number] Requested By: Order Number:Reading MD: Shey Moreland Measurements IntervalsAxis Rate: 64 P:45 PA: 162QRS:20 QRSD: 82 T:37 QT: 382 QTc:394 Interpretive Statements Normal sinus rhythm Nonspecific ST and T wave abnormality Electronically Signed On 07-05-18 17:37:15 CDT by Shey Moreland 07/05/2018 [facility] BASIC METABOLIC PANEL CO2 23 mmol/L 21 - 31 06/14/2018 [facility] BASIC METABOLIC PANEL Chloride 108 mmol/L 98 - 107 06/14/2018 [facility] BASIC METABOLIC PANEL Potassium 4.6 mmol/L 3.5 - 5.1 06/14/2018 [facility] BASIC METABOLIC PANEL Sodium 141 mmol/L 136 - 145 06/14/2018 [facility] BASIC METABOLIC PANEL Glucose 100 mg/dL 70 - 110 06/14/2018 [facility] BASIC METABOLIC PANEL Urea Nitrogen 15 mg/dL 7 - 06/14/2018 [facility] BASIC METABOLIC PANEL Creatinine 0.60 mg/dL 0.6 - 1.2 06/14/2018 [facility] BASIC METABOLIC PANEL Anion Gap 10 06/14/2018 [facility] BASIC METABOLIC PANEL Calcium 10.2 mg/dL 8.6 - 10.3 06/14/2018 [facility] BASIC METABOLIC PANEL GFR, Estimated >60 mL/min/1.73 m2 06/14/2018 [facility] BASIC METABOLIC PANEL GFR, Estim, Afr-Am >60 mL/min/1.73 m2 06/14/2018 [facility] BASIC METABOLIC PANEL Lab Interpretation Abnormal 06/14/2018 [facility] LIPID PROFILE Cholesterol 278 mg/dL 06/14/2018 REFERENCE RANGE: Desirable: <200 mg/dL Borderline: 200-240 mg/dL High Risk: >240 mg/dL [facility] LIPID PROFILE Triglyceride 359 mg/dL <150 06/14/2018 REFERENCE RANGE: Normal: <150 mg/dL Borderline High: 150-199 mg/dL High: 200-499 mg/dL Very High: >uz=650 mg/dL [facility] LIPID PROFILE HDL 55 mg/dL 06/14/2018 Increased CHD risk: <40 mg/dL Decreased CHD risk: >60 mg/dL [facility] LIPID PROFILE LDL 151 mg/dL 06/14/2018 REFERENCE RANGE: Optimal: <100 mg/dL Near Optimal: 100-129 mg/dL Borderline High: 130-159 mg/dL High: 160-189 mg/dL Very High: >re=632 mg/dL [facility] LIPID PROFILE Lab Interpretation Abnormal 06/14/2018 [facility] HEMOGLOBIN A1C Hemoglobin A1c 5.4 % 4.3 - 6.1 06/13/2018 [facility] HEMOGLOBIN A1C Est Average Gluc 108.3 mg/dL 06/13/2018 [facility] XRAY KNEE 4 OR MORE VIEWS (ROUTINE W/ WT BEARING: AP/PA/LAT/SUN) IMPRESSION: Unchanged, satisfactory appearance of a right total knee arthroplasty. Dictated By: Arturo Vega MD, 04/19/2018 10:34 AM I have reviewed the study and agree with the findings in this report. Signed By: Debbie Cain MD, 04/19/2018 5:01 PM EXAM: XR RIGHT KNEE 4 VIEWS DATE:04/19/2018 9:55 AM INDICATION: PAIN. Acute pain of right knee COMPARISON: Right knee radiographs from 02/22/2018 TECHNIQUE: Weight-bearing AP, PA, sunrise and lateral radiographs of the knee FINDINGS:Status post cruciate retaining total knee arthroplasty and patellar resurfacing without evidence of hardware failure. No acute fracture is identified. A small knee joint effusion is identified. No soft tissue abnormality is identified. Interface, Rad/Mammog In - 04/19/2018 5:06 PM CDT EXAM: XR RIGHT KNEE 4 VIEWS DATE: 04/19/2018 9:55 AM INDICATION: PAIN. Acute pain of right knee COMPARISON: Right knee radiographs from 02/22/2018 TECHNIQUE: Weight-bearing AP, PA, sunrise and lateral radiographs of the knee FINDINGS: Status post cruciate retaining total knee arthroplasty and patellar resurfacing without evidence of hardware failure. No acute fracture is identified. A small knee joint effusion is identified. No soft tissue abnormality is identified. IMPRESSION IMPRESSION: Unchanged, satisfactory appearance of a right total knee arthroplasty. Dictated By: Arturo Vega MD, 04/19/2018 10:34 AM I have reviewed the study and agree with the findings in this report. Signed By: Debbie Cain MD, 04/19/2018 5:01 PM 04/19/2018 [facility] DUPLEX DOPPLER LOWER EXTREMITY VENOUS, UNILATERAL OR LIMITED IMPRESSION: No evidence of deep venous thrombosis above the right calf. Dictated By: Anastacio Holt DO, 04/12/2018 10:50 AM I have reviewed the study and agree with the findings in this report. Signed By: Rahel Warren MD, 04/12/2018 11:00 AM EXAM: Right Lower Extremity Venous Duplex Ultrasound INDICATION: 57 f with knee TKA right side and has pain in the lateral knee/lower knee area area for 3 mths, COMPARISON: None TECHNIQUE: Aaron scale, color Doppler and spectral waveform analysis of the right lower extremity deep venous system was performed. FINDINGS: Common Femoral: Fully compressible with normal spontaneous waveforms. Proximal Greater Saphenous: Fully compressible. Femoral: Fully compressible with normal spontaneous waveforms. Normal response to augmentation. Proximal Deep Femoral: Normal spontaneous waveforms. Popliteal: Fully compressible with normal spontaneous waveforms. Other: Grayscale and color Doppler imaging of the lateral knee demonstrates no subcutaneous mass or fluid collection. Interface, Rad/Mammog In - 04/12/2018 11:05 AM CDT EXAM: Right Lower Extremity Venous Duplex Ultrasound INDICATION: 57 f with knee TKA right side and has pain in the lateral knee/lower knee area area for 3 mths, COMPARISON: None TECHNIQUE: Aaron scale, color Doppler and spectral waveform analysis of the right lower extremity deep venous system was performed. FINDINGS: Common Femoral: Fully compressible with normal spontaneous waveforms. Proximal Greater Saphenous: Fully compressible. Femoral: Fully compressible with normal spontaneous waveforms. Normal response to augmentation. Proximal Deep Femoral: Normal spontaneous waveforms. Popliteal: Fully compressible with normal spontaneous waveforms. Other: Grayscale and color Doppler imaging of the lateral knee demonstrates no subcutaneous mass or fluid collection. IMPRESSION IMPRESSION: No evidence of deep venous thrombosis above the right calf. Dictated By: Anastacio Holt DO, 04/12/2018 10:50 AM I have reviewed the study and agree with the findings in this report. Signed By: Rahel Warren MD, 04/12/2018 11:00 AM 04/12/2018 [facility] COMPREHENSIVE METABOLIC PANEL(DBIL NOT INCLUDED) Albumin 4.3 g/dL 3.4 - 5 03/28/2018 [facility] COMPREHENSIVE METABOLIC PANEL(DBIL NOT INCLUDED) Calcium 9.5 mg/dL 8.5 - 10.2 03/28/2018 [facility] COMPREHENSIVE METABOLIC PANEL(DBIL NOT INCLUDED) CO2 24 mmol/L 21 - 32 03/28/2018 [facility] COMPREHENSIVE METABOLIC PANEL(DBIL NOT INCLUDED) Chloride 108 mmol/L 98 - 107 03/28/2018 [facility] COMPREHENSIVE METABOLIC PANEL(DBIL NOT INCLUDED) Creatinine 0.73 mg/dL 0.6 - 1.3 03/28/2018 [facility] COMPREHENSIVE METABOLIC PANEL(DBIL NOT INCLUDED) Glucose 94 mg/dL 70 - 99 03/28/2018 [facility] COMPREHENSIVE METABOLIC PANEL(DBIL NOT INCLUDED) Alk Phos 91 U/L 45 - 117 03/28/2018 [facility] COMPREHENSIVE METABOLIC PANEL(DBIL NOT INCLUDED) Potassium 4.6 mmol/L 3.5 - 5.1 03/28/2018 [facility] COMPREHENSIVE METABOLIC PANEL(DBIL NOT INCLUDED) Sodium 143 mmol/L 136 - 145 03/28/2018 [facility] COMPREHENSIVE METABOLIC PANEL(DBIL NOT INCLUDED) ALT 22 U/L 12 - 78 03/28/2018 [facility] COMPREHENSIVE METABOLIC PANEL(DBIL NOT INCLUDED) AST 16 U/L 15 - 37 03/28/2018 [facility] COMPREHENSIVE METABOLIC PANEL(DBIL NOT INCLUDED) Urea Nitrogen 21 mg/dL 7 - 18 03/28/2018 [facility] COMPREHENSIVE METABOLIC PANEL(DBIL NOT INCLUDED) T Bilirubin 0.4 mg/dL 0.2 - 1 03/28/2018 [facility] COMPREHENSIVE METABOLIC PANEL(DBIL NOT INCLUDED) T Protein 7.7 g/dL 6.4 - 8.2 03/28/2018 [facility] COMPREHENSIVE METABOLIC PANEL(DBIL NOT INCLUDED) GFR, Estimated >60 mL/min/1.73 m2 03/28/2018 [facility] COMPREHENSIVE METABOLIC PANEL(DBIL NOT INCLUDED) GFR, Estim, Afr-Am >60 mL/min/1.73 m2 03/28/2018 [facility] COMPREHENSIVE METABOLIC PANEL(DBIL NOT INCLUDED) Anion Gap 11 03/28/2018 [facility] COMPREHENSIVE METABOLIC PANEL(DBIL NOT INCLUDED) Lab Interpretation Abnormal 03/28/[address] [facility] [address] HEAD W/O CONTRAST IMPRESSION: CT examination of the brain is unchanged. Interpreted by Norris Cuevas M.D.,Staff radiologist. Signed By: Norris Cuevas MD, 03/13/2018 12:14 PM EXAM: CT BRAIN DATE: 03/13/2018 7:38 AM INDICATION:states headache and vision problems with the new eye glasses COMPARISON: May 15, 2014 TECHNIQUE: Contiguous axial images of the brain are obtained from the skull base to the vertex without administration of intravenous contrast material. Bone and soft tissue algorithms are provided. DISCUSSION:The appearance of the brain parenchyma is unchanged. In particular, there has been no interval infarct, hemorrhage or development of hydrocephalus. Left parietal extra-axial dystrophic calcification is unchanged. There is no radiographic evidence of increased intracranial pressure. Incidental imaging of the orbits, paranasal sinuses, skull, and skull base demonstrates no significant interval change. Interface, Rad/Mammog In - 03/13/2018 12:19 PM CDT EXAM: CT BRAIN DATE: 03/13/2018 7:38 AM INDICATION:states headache and vision problems with the new eye glasses COMPARISON: May 15, 2014 TECHNIQUE: Contiguous axial images of the brain are obtained from the skull base to the vertex without administration of intravenous contrast material. Bone and soft tissue algorithms are provided. DISCUSSION: The appearance of the brain parenchyma is unchanged. In particular, there has been no interval infarct, hemorrhage or development of hydrocephalus. Left parietal extra-axial dystrophic calcification is unchanged. There is no radiographic evidence of increased intracranial pressure. Incidental imaging of the orbits, paranasal sinuses, skull, and skull base demonstrates no significant interval change. IMPRESSION IMPRESSION: CT examination of the brain is unchanged. Interpreted by Norris Cuevas M.D., Staff radiologist. Signed By: Norris Cuevas MD, 03/13/2018 12:14 PM 03/13/2018 [facility] CRP, HIGH SENS CRP, high sens 0.730 mg/dL <1.0 02/24/2018 [facility] SED RATE Sed Rate <1 <30 mm/Hr 02/24/2018 Repeated to verify result [facility] CBC/DIFF WBC 6.7 K/uL 4.5 - 11 02/24/2018 [facility] CBC/DIFF RBC 4.49 4.20 - 5.40 02/24/2018 [facility] CBC/DIFF Hemoglobin 13.7 g/dL 12 - 16 02/24/2018 [facility] CBC/DIFF Hematocrit 41.1 % 37 - 47 02/24/2018 [facility] CBC/DIFF MCV 92 fL 82 - 92 02/24/2018 [facility] CBC/DIFF MCH 30.5 pg 27 - 32 02/24/2018 [facility] CBC/DIFF MCHC 33.3 g/dL 32 - 36 02/24/2018 [facility] CBC/DIFF RDW 44.5 fL 36.4 - 46.3 02/24/2018 [facility] CBC/DIFF Platelet 284 K/uL 150 - 400 02/24/2018 [facility] CBC/DIFF Mean Platelet Volume 10.1 fL 9.4 - 12.4 02/24/2018 [facility] CBC/DIFF Percent NRBC 0.0 02/24/2018 [facility] CBC/DIFF Absolute NRBC 0.00 02/24/2018 [facility] CBC/DIFF Neutrophil 41.6 % 34 - 70 02/24/2018 [facility] CBC/DIFF Lymphocyte 47.7 % 20 - 50 02/24/2018 [facility] CBC/DIFF Monocyte 6.9 % 5 - 12 02/24/2018 [facility] CBC/DIFF Eosinophil 2.8 % 0.7 - 5 02/24/2018 [facility] CBC/DIFF Basophil 0.9 % 0.1 - 1.2 02/24/2018 [facility] CBC/DIFF Pct Immat Gran 0.1 0.0 - 0.5 02/24/2018 [facility] CBC/DIFF Neutrophil, Abs 2.78 K/uL 1.56 - 6.13 02/24/2018 [facility] CBC/DIFF Lymphocyte, Abs 3.19 K/uL 1.18 - 3.74 02/24/2018 [facility] CBC/DIFF Monocyte, Abs 0.46 K/uL 0.24 - 0.36 02/24/2018 [facility] CBC/DIFF Eosinophil, Abs 0.19 K/uL 0.04 - 0.36 02/24/2018 [facility] CBC/DIFF Basophil, Abs 0.06 K/uL 0.01 - 0.08 02/24/2018 [facility] CBC/DIFF Absol Immat Gran 0.01 K/uL 0 - 0.03 02/24/2018 [facility] CBC/DIFF Lab Interpretation Abnormal 02/24/2018 [facility] Activated partial thromboplastin time (aPTT) in platelet poor plasma bycoagulation assay Activated partial thromboplastin time (aPTT) in platelet poor plasma bycoagulation assay 26.1 23.8 - 35.5 12/20/2017 [facility] Automated blood basophil count (count/volume) Automated blood basophil count (count/volume) 0.1 0.0 - 0.1 12/20/2017 [facility] Automated blood basophil count as percentage of total leukocytes Automated blood basophil count as percentage of total leukocytes 0.5 0.0 - 1.0 12/20/2017 [facility] Automated blood eosinophil count Automated blood eosinophil count 0.3 0.0 - 0.4 12/20/2017 [facility] Automated blood eosinophil count as percentage of total leukocytes Automated blood eosinophil count as percentage of total leukocytes 2.7 0.0 - 6.0 12/20/2017 [facility] Automated blood hematocrit (volume fraction) Automated blood hematocrit (volume fraction) 39.2 34.2 - 44.1 12/20/2017 [facility] Automated blood lymphocyte count as percentage ot total leukocytes Automated blood lymphocyte count as percentage ot total leukocytes 16.7 18.0 - 39.1 12/20/2017 [facility] Automated blood monocyte count as percentage of total leukocytes Automated blood monocyte count as percentage of total leukocytes 4.5 4.4 - 11.3 12/20/2017 [facility] Automated blood neutrophil count Automated blood neutrophil count 9.4 2.1 - 6.9 12/20/2017 [facility] Automated blood platelet count (count/volume) Automated blood platelet count (count/volume) 283 140 - 360 12/20/2017 [facility] Automated blood segmented neutrophil count as percentage of total leukocytes Automated blood segmented neutrophil count as percentage of total leukocytes 75.3 38.7 - 80.0 12/20/2017 [facility] Automated erythrocyte mean corpuscular hemoglobin (mass per erythrocyte) Automated erythrocyte mean corpuscular hemoglobin (mass per erythrocyte) 30.4 28 - 32 12/20/2017 [facility] Automated erythrocyte mean corpuscular hemoglobin concentration measurement (mass/volume) Automated erythrocyte mean corpuscular hemoglobin concentration measurement (mass/volume) 32.9 31 - 35 12/20/2017 [facility] Automated erythrocyte mean corpuscular volume Automated erythrocyte mean corpuscular volume 92.5 81 - 99 12/20/2017 [facility] Blood erythrocytes automated count (number/volume) Blood erythrocytes automated count (number/volume) 4.24 3.6 - 5.1 12/20/2017 [facility] Blood hemoglobin measurement (moles/volume) Blood hemoglobin measurement (moles/volume) 12.9 12.0 - 16.0 12/20/2017 [facility] Blood leukocytes automated count (number/volume) Blood leukocytes automated count (number/volume) 12.42 4.8 - 10.8 12/20/2017 [facility] Blood lymphocytes count (number/volume) Blood lymphocytes count (number/volume) 2.1 1.0 - 3.2 12/20/2017 [facility] Blood monocytes automated count (number/volume) Blood monocytes automated count (number/volume) 0.6 0.2 - 0.8 12/20/2017 [facility] Estimated glomerular filtration rate (GFR) determination Estimated glomerular filtration rate (GFR) determination null 60 12/20/2017 [facility] Glucose measurement Glucose measurement 111 74 - 118 12/20/2017 [facility] INR in Platelet poor plasma by Coagulation assay INR in Platelet poor plasma by Coagulation assay 1.08 12/20/2017 [facility] Plasma globulin measurement (mass/volume) Plasma globulin measurement (mass/volume) 3.9 2.3 - 3.5 12/20/2017 [facility] Prothrombin time (PT) in platelet poor plasma by coagulation assay Prothrombin time (PT) in platelet poor plasma by coagulation assay 13.2 11.9 - 14.5 12/20/2017 [facility] Serum or plasma alanine aminotransferase measurement (enzymatic activity/volume) Serum or plasma alanine aminotransferase measurement (enzymatic activity/volume) 32 0 - 55 12/20/2017 [facility] Serum or plasma albumin measurement (mass/volume) Serum or plasma albumin measurement (mass/volume) 4.3 3.5 - 5.0 12/20/2017 [facility] Serum or plasma albumin/globulin mass ratio Serum or plasma albumin/globulin mass ratio 1.1 0.8 - 2.0 12/20/2017 [facility] Serum or plasma alkaline phosphatase measurement (enzymatic activity/volume) Serum or plasma alkaline phosphatase measurement (enzymatic activity/volume) 125 40 - 150 12/20/2017 [facility] Serum or plasma amylase measurement (enzymatic activity/volume) Serum or plasma amylase measurement (enzymatic activity/volume) 60 25 - 125 12/20/2017 [facility] Serum or plasma anion gap Serum or plasma anion gap 13.6 8 - 16 12/20/2017 [facility] Serum or plasma calcium measurement (mass/volume) Serum or plasma calcium measurement (mass/volume) 9.2 8.4 - 10.2 12/20/2017 [facility] Serum or plasma carbon dioxide, total measurement (moles/volume) Serum or plasma carbon dioxide, total measurement (moles/volume) 20 22 - 29 12/20/2017 [facility] Serum or plasma chloride measurement (moles/volume) Serum or plasma chloride measurement (moles/volume) 108 98 - 107 12/20/2017 [facility] Serum or plasma creatine kinase MB measurement (mass/volume) Serum or plasma creatine kinase MB measurement (mass/volume) 0.40 0.00 - 5.00 12/20/2017 [facility] Serum or plasma creatine kinase measurement (enzymatic activity/volume) Serum or plasma creatine kinase measurement (enzymatic activity/volume) 33 29 - 168 12/20/2017 [facility] Serum or plasma creatinine measurement (mass/volume) Serum or plasma creatinine measurement (mass/volume) 0.77 0.57 - 1.11 12/20/2017 [facility] Serum or plasma lipase measurement (enzymatic activity/volume) Serum or plasma lipase measurement (enzymatic activity/volume) 22 8 - 78 12/20/2017 [facility] Serum or plasma potassium measurement (moles/volume) Serum or plasma potassium measurement (moles/volume) 3.6 3.5 - 5.1 12/20/2017 [facility] Serum or plasma protein measurement (mass/volume) Serum or plasma protein measurement (mass/volume) 8.2 6.5 - 8.1 12/20/2017 [facility] Serum or plasma sodium measurement (moles/volume) Serum or plasma sodium measurement (moles/volume) 138 136 - 145 12/20/2017 [facility] Serum or plasma total bilirubin measurement (mass/volume) Serum or plasma total bilirubin measurement (mass/volume) 0.6 0.2 - 1.2 12/20/2017 [facility] Serum or plasma troponin i.cardiac measurement by detection limit <=0.01 NG/ml (mass/volume) Serum or plasma troponin i.cardiac measurement by detection limit <=0.01 NG/ml (mass/volume) 0.001 0 - 0.300 12/20/2017 [facility] Serum or plasma urea nitrogen measurement (mass/volume) Serum or plasma urea nitrogen measurement (mass/volume) 23 7 - 26 12/20/2017 [facility] Serum or plasma urea nitrogen/creatinine mass ratio Serum or plasma urea nitrogen/creatinine mass ratio 30 6 - 25 12/20/2017 [facility] Red Cell Distribution Width 12.7 11.7 - 14.4 12/20/2017 [facility] IM GRANULOCYTES % 0.3 0.0 - 1.0 12/20/2017 [facility] Absolute Immature Granulocyte (auto 0.04 0 - 0.1 12/20/2017 [facility] Aspartate Amino Transf (AST/SGOT) 63 5 - 34 12/20/2017 [facility] B-Type Natriuretic Peptide null 0 - 100 12/20/2017 [facility] Vital Signs Vital Sign Value Date Comments Source Systolic (mm Hg) 140 08/21/2018 [facility] Diastolic (mm Hg) 75 08/21/2018 [facility] Heart Rate 65 08/21/2018 [facility] Temperature Oral (F) 36.89 Anya 08/21/2018 [facility] Respitory Rate 18 08/21/2018 [facility] Height 167.6 cm 08/21/2018 [facility] Weight 80.74 08/21/2018 [facility] Encounters Location Location Details Encounter Type Encounter Number Reason For Visit Attending Provider ADM Date DC Date Status Source Physical Therapy [facility] [id number] Hayden Molina PT 2017 2017 [facility] Physical Therapy [facility] [id number] Hayden Molina PT 12/13/2017 12/13/2017 [facility] Depart Emergency Room [id number] DRE TOLEDO MD 12/20/2017 12/20/2017 [facility] Physical [facility] [id number] Hayden Molina PT 12/20/2017 12/20/2017 [facility] [place] [facility] [id number] Santino Gilbert MD 12/21/2017 [facility] Physical [facility] [id number] Hyaden Molina PT 12/27/2017 12/27/2017 [facility] [id number] Hayden Molina PT 01/03/2018 01/03/2018 [facility] Psychiatry [place] [facility] [id number] Victor Hugo Yancey MD 01/08/2018 [facility] [place] [facility] [id number] Eun Lee MD 01/11/2018 01/11/2018 [facility]al [facility] [place] [facility] Visit [id number] Ely Moncada 01/22/2018 01/23/2018 [facility] Physical [facility] [id number] Hayden Molina PT 01/24/2018 01/24/2018 [facility] [place] Ref[facility] [id number] Victor Hugo Yancey MD 02/01/2018 [facility] Physical [facility] [id number] Hayden Molina PT 02/13/2018 02/13/2018 [facility] Physical [facility] [id number] Hayden Molina PT 02/22/2018 02/22/2018 [facility] [id number] Robert Gomez MD 02/22/2018 02/23/2018 [facility] [place] [facility] [place] [id number] Robert Gomez MD 02/22/2018 02/22/2018 [facility] Physical [facility] [id number] Hayden Molina PT 02/27/2018 02/27/2018 [facility] [place] [facility] Visit [id number] Santino Gilbert MD 03/07/2018 03/07/2018 [facility] [place] [facility] Visit [id number] Santino Gilbert MD 03/07/2018 03/07/2018 [facility] Physical [facility] [id number] Hayden Molina PT 03/08/2018 03/08/2018 [facility] [place] [facility] [place] [id number] Robert Gomez MD 03/08/2018 03/08/2018 [facility] [place] Ref[place] [id number] Santino Gilbert MD 03/09/2018 [facility] [place] Orders Only [id number] Santino Gilbert MD 03/13/2018 [facility] Encounter [id number] Perez Castro MD 03/13/2018 03/14/2018 [facility] [place] Refill [id number] Santino Gilbert MD 03/19/2018 [facility] Physical Therapy [facility] [id number] Hayden Molina PT 03/22/2018 03/22/2018 [facility] [place] Orders Only [id number] Perez Castro MD 03/27/2018 [facility] [place] [facility] Visit [id number] Santino Gilbert MD 03/27/2018 03/27/2018 [facility] En[facility] [id number] Santino Gilbert MD 03/28/2018 03/29/2018 [facility] Physical Therapy [facility] [id number] Hayden Molina PT 03/28/2018 03/28/2018 [facility] [place] [facility] Visit [id number] Victor Hugo Yancey MD 04/03/2018 04/03/2018 [facility] Physical Therapy [facility] [id number] Hayden Molina PT 04/04/2018 04/04/2018 [facility] [place] Ref[place] [id number] Santino Gilbert MD 04/05/2018 [facility] [place] Refill [id number] Santino Gilbert MD 04/06/2018 [facility] [place] Telephone [id number] Breonna Ayala LVN 04/11/2018 [facility] Ultrasound Ancillary Procedure [id number] 04/12/2018 04/12/2018 [facility] [place] Refill [id number] Jolie Kapoor RN 04/17/2018 [facility] Diagnostic Radiology [facility] Orders Only [id number] Mauricio Smith 04/19/2018 [facility] Physical Therapy [facility] [id number] Hayden Molina PT 04/19/2018 04/19/2018 [facility] [place] [facility] [place] [id number] Chau Chapman MD 04/19/2018 04/19/2018 [facility] En[facility] [id number] Robert Gomez MD 04/19/2018 04/20/2018 [facility] [place] [facility] Visit [id number] Ely Moncada 04/30/2018 04/30/2018 [facility] Physical Therapy [facility] [id number] Hayden Molina PT 05/02/2018 05/02/2018 [facility] [place] [facility] Visit [id number] Santino Gilbert MD 06/13/2018 06/13/2018 [facility] Nursing [place] Nurse Only [id number] Lela Jiang LVN 06/21/2018 06/21/2018 [facility] [place] Nurse Only [id number] Santino Gilbert MD 07/05/2018 07/05/2018 [facility] [place] Refill [id number] Santino Gilbert MD 07/14/2018 [facility] [place] Refill [id number] Santino Gilbert MD 07/27/2018 [facility] [place] [facility] Visit [id number] Victor Hugo Yancey MD 08/14/2018 08/14/2018 [facility] [place] Office Visit [id number] Alondra Felipe MD 08/21/2018 08/21/2018 [facility] [place] Refill [id number] Santino Gilbert MD 11/01/2018 [facility] Procedures Procedure Code Date Perfomer Comments Source 12 LEAD EKG [id number] 07/05/2018 [facility] LIPID PROFILE [id number] 06/13/2018 [facility] BASIC METABOLIC PANEL 69527 06/13/2018 [facility] HEMOGLOBIN A1C 98471 06/13/2018 [facility] XRAY KNEE 4 OR MORE VIEWS (ROUTINE W/ WT BEARING: AP/PA/LAT/SUN) [id number] 04/19/2018 [facility] DUPLEX DOPPLER LOWER EXTREMITY VENOUS, UNILATERAL OR LIMITED 04468 04/12/2018 [facility] COMPREHENSIVE METABOLIC PANEL(DBIL NOT INCLUDED) 46924 03/28/2018 [facility] LIPID PROFILE 62319 03/28/2018 [facility] CT HEAD W/O CONTRAST 29979 03/13/2018 [facility] SED RATE 26444 02/24/2018 [facility] CRP, HIGH SENS 19098 02/24/2018 [facility] CBC/DIFF 09958 02/24/2018 [facility] XRAY KNEE 4 OR MORE VIEWS (ROUTINE W/ WT BEARING: AP/PA/LAT/SUN) 12229 02/23/2018 [facility]
--- OUTSIDE RECORDS SUMMARY | 2019-04-26 20:28 | XMS REPORT | Clinical Summary ---
Author Author [facility] Organization [facility] Address Unknown Phone Unavailable Care Team Providers Care [employer] Worker Name Role Phone Scar MaraAndrew DDS 6 Santino Gilbert MD PCP Allergies No Known Allergies Medications End Date Status Medication Sig Dispensed Refills Start Date Active topiramate (TOPAMAX) 25 Take 2 450 tablet 3 mg tabletIndications: tablets by 7 Diplopia mouth in the morning and 3 tablets at night. Active fluticasone (FLONASE) 50 Use 1 Morton 16 g 1 mcg/actuation nasal spray in each 7 nostril daily. Active fluticasone-salmeterol Inhale 1 Puff 60 Each 2 (ADVAIR DISKUS) 250-50 by mouth 2 7 mcg/dose diskus times daily inhalerIndications: (autosubstitu Extrinsic asthma, mild tion from intermittent, symbicort). uncomplicated Active ergocalciferol (VITAMIN Take 1 52 capsule 10 D2) 50,000 unit capsule by 7 capsuleIndications: mouth weekly. Status post total right knee replacement Active tiZANidine (ZANAFLEX) 4 Take 1 tablet 90 tablet 3 mg tabletIndications: by mouth 3 8 Chronic midline low back times daily. pain with bilateral sciatica Active lisinopril (PRINIVIL, Take 1 tablet 270 tablet 0 ZESTRIL) 40 mg by mouth 8 tabletIndications: daily. Essential hypertension with goal blood pressure less than 140/90 Active traMADol (ULTRAM) 50 mg Take 1 tablet 90 tablet 1 tabletIndications: Acute by mouth 8 meniscal tear of knee, every 8 hours unspecified laterality, as needed for sequela, Chronic Pain. left-sided headaches, Primary osteoarthritis of right knee, Chronic midline low back pain without sciatica, Pain of both hip joints Active gabapentin (NEURONTIN) Take 1 tablet 180 tablet 1 600 mg tabletIndications: by mouth 2 8 Acute meniscal tear of times daily. knee, unspecified laterality, sequela, Chronic left-sided headaches, Primary osteoarthritis of right knee, Chronic midline low back pain without sciatica, Pain of both hip joints Active amLODIPine (NORVASC) 10 Take 1 tablet 90 tablet 1 mg tabletIndications: by mouth 8 Uncontrolled hypertension daily. Active cetirizine (ZYRTEC) 10 mg TAKE 1 TABLET 30 tablet 0 tabletIndications: Acute BY MOUTH 8 sinusitis, unspecified EVERY DAY Active buPROPion (WELLBUTRIN XL) Take 1 tablet 30 tablet 3 150 mg extended release by mouth 8 tabletIndications: Severe every single current episode of morning. major depressive disorder, without psychotic features Active mirtazapine (REMERON) 30 Take 1 tablet 30 tablet 3 mg tabletIndications: by mouth at 8 Severe single current bedtime episode of major nightly. depressive disorder, without psychotic features, KODY (generalized anxiety disorder), Insomnia, unspecified type Active atorvastatin (LIPITOR) 20 Take 1 tablet 90 tablet 1 mg tabletIndications: by mouth at 8 Hyperlipidemia, bedtime unspecified nightly. hyperlipidemia type Active metoprolol tartrate TAKE 1 TABLET 180 tablet 0 (LOPRESSOR) 50 mg BY MOUTH 8 tabletIndications: TWICE DAILY Essential hypertension with goal blood pressure less than 140/90 Active DEXILANT 30 mg delayed TAKE 1 90 capsule 0 release CAPSULE BY 8 capsuleIndications: MOUTH EVERY Gastroesophageal reflux DAY disease without esophagitis 03/27/2018 Discontinued lisinopril (PRINIVIL, Take 1 tablet 270 tablet 1 ZESTRIL) 40 mg by mouth 7 tabletIndications: daily. Essential hypertension, benign 07/14/2018 Discontinued dexlansoprazole Take 1 90 capsule 3 (DEXILANT) 30 mg delayed capsule by 7 release mouth daily. capsuleIndications: Gastroesophageal reflux disease without esophagitis 03/27/2018 Discontinued zolpidem (AMBIEN) 5 mg Take 1 tablet 15 tablet 2 TabIndications: Severe by mouth 7 single current episode of nightly at major depressive bedtime as disorder, without needed for psychotic features, KODY Insomnia. (generalized anxiety disorder), Insomnia, unspecified type 02/01/2018 Discontinued mirtazapine (REMERON) 30 Take 1 tablet 30 tablet 3 mg tabletIndications: by mouth at 7 Severe single current bedtime episode of major nightly. depressive disorder, without psychotic features, KODY (generalized anxiety disorder), Insomnia, unspecified type 04/05/2018 Discontinued metoprolol tartrate Take 1 tablet 180 tablet 1 (LOPRESSOR) 50 mg by mouth 2 7 tabletIndications: times daily. Essential hypertension with goal blood pressure less than 140/90 06/13/2018 Discontinued amLODIPine (NORVASC) 2.5 Take 1 tablet 90 tablet 3 mg tabletIndications: by mouth 7 Essential hypertension daily. with goal blood pressure less than 140/90 12/25/2017 Discontinued HYDROcodone-acetaminophen Take 1 to 2 50 tablet 0 (NORCO) 10-325 mg tablets by 7 tabletIndications: mouth every 4 Primary osteoarthritis of to 6 hours as right knee needed for Pain. 12/25/2017 Discontinued traMADol (ULTRAM) 50 mg Take 2 60 tablet 0 tabletIndications: Status tablets by 7 post total right knee mouth every 6 replacement hours as needed for Pain. 03/27/2018 Discontinued acetaminophen (TYLENOL) Take 2 60 tablet 0 325 mg tabletIndications: tablets by 7 Status post total right mouth every 6 knee replacement hours as needed for Pain. 12/07/2017 aspirin 325 mg Take 1 tablet 80 tablet 0 tabletIndications: Status by mouth 2 7 post total right knee times daily replacement for 40 days. 01/11/2018 Discontinued gabapentin (NEURONTIN) Take 1 42 capsule 0 300 mg capsule by 7 capsuleIndications: mouth 3 times Status post total right daily. knee replacement 12/25/2017 Discontinued traMADol (ULTRAM) 50 mg Take 1 tablet 50 tablet 0 tabletIndications: Status by mouth 8 post total right knee every 6 hours replacement as needed for Pain. 03/07/2018 Discontinued methocarbamol (ROBAXIN) Take 1 tablet 90 tablet 1 750 mg tabletIndications: by mouth 3 8 Muscle spasms of both times daily. lower extremities 07/27/2018 Discontinued cetirizine (ZYRTEC) 10 mg Take 1 tablet 30 tablet 6 tabletIndications: Acute by mouth 8 sinusitis, unspecified daily. 12/25/2017 Discontinued traMADol (ULTRAM) 50 mg Take 1 tablet 30 tablet 0 tabletIndications: S/P by mouth 8 total knee arthroplasty, every 6 hours right as needed for Pain. 03/08/2018 Discontinued gabapentin (NEURONTIN) Take 1 tablet 90 tablet 0 600 mg tabletIndications: by mouth 3 8 S/P total knee times daily. arthroplasty, right 03/19/2018 Discontinued traMADol (ULTRAM) 50 mg Take 1 tablet 90 tablet 1 tabletIndications: Acute by mouth 8 meniscal tear of knee, every 8 hours unspecified laterality, as needed for sequela, Chronic Pain. left-sided headaches, Primary osteoarthritis of right knee, Chronic midline low back pain without sciatica, Pain of both hip joints 02/10/2018 gabapentin (NEURONTIN) Take 1 90 capsule 0 300 mg capsule by 8 capsuleIndications: mouth 3 times History of total knee daily for 30 arthroplasty, right days. 04/03/2018 Discontinued mirtazapine (REMERON) 30 Take 1 tablet 30 tablet 1 mg tabletIndications: by mouth at 8 Severe single current bedtime episode of major nightly. depressive disorder, without psychotic features, KODY (generalized anxiety disorder), Insomnia, unspecified type 03/08/2018 Discontinued gabapentin (NEURONTIN) Take 2 90 capsule 0 300 mg capsules by 8 capsuleIndications: S/P mouth 3 times total knee arthroplasty, daily. right 03/09/2018 Discontinued methocarbamol (ROBAXIN) Take 1 tablet 90 tablet 1 750 mg tabletIndications: by mouth 3 8 Chronic pain of right times daily. knee 03/27/2018 Discontinued naproxen (NAPROSYN) 250 Take 1 tablet 60 tablet 0 mg tabletIndications: S/P by mouth 2 8 total knee arthroplasty, times daily right (with meals) for 30 days. 03/27/2018 Discontinued gabapentin (NEURONTIN) Take 2 90 capsule 0 300 mg capsules by 8 capsuleIndications: S/P mouth 3 times total knee arthroplasty, daily. right 03/13/2018 Discontinued methocarbamol (ROBAXIN) Take 1 tablet 90 tablet 1 750 mg tabletIndications: by mouth 3 8 Chronic pain of right times daily. knee 06/13/2018 Discontinued traMADol (ULTRAM) 50 mg Take 1 tablet 90 tablet 1 tabletIndications: Acute by mouth 8 meniscal tear of knee, every 8 hours unspecified laterality, as needed for sequela, Chronic Pain. left-sided headaches, Primary osteoarthritis of right knee, Chronic midline low back pain without sciatica, Pain of both hip joints 06/13/2018 Discontinued gabapentin (NEURONTIN) Take 1 tablet 180 tablet 1 800 mg tabletIndications: by mouth 2 8 S/P total knee times daily. arthroplasty, right 04/06/2018 Discontinued lisinopril (PRINIVIL, Take 1 tablet 270 tablet 1 ZESTRIL) 40 mg by mouth 8 tabletIndications: daily. Essential hypertension, benign 06/13/2018 Discontinued codeine-guaiFENesin Take 5 mL by 120 mL 0 (CHERATUSSIN AC) 10-100 mouth 3 times 8 mg/5 mL syrupIndications: daily as Cough needed for Cough. 04/03/2018 Discontinued mirtazapine (REMERON) 30 Take 1 tablet 30 tablet 1 mg tabletIndications: by mouth at 8 Severe single current bedtime episode of major nightly. depressive disorder, without psychotic features, KODY (generalized anxiety disorder), Insomnia, unspecified type 08/14/2018 Discontinued buPROPion (WELLBUTRIN XL) Take 1 tablet 30 tablet 3 150 mg extended release by mouth 8 tabletIndications: Severe every single current episode of morning. major depressive disorder, without psychotic features 08/14/2018 Discontinued zolpidem (AMBIEN) 5 mg Take 1 tablet 20 tablet 3 TabIndications: Severe by mouth 8 single current episode of nightly at major depressive bedtime as disorder, without needed for psychotic features, KODY Insomnia. (generalized anxiety disorder), Insomnia, unspecified type 04/17/2018 Discontinued mirtazapine (REMERON) 30 Take 1 tablet 30 tablet 3 04/03/ mg tabletIndications: by mouth at 8 Severe single current bedtime episode of major nightly. depressive disorder, without psychotic features, KODY (generalized anxiety disorder), Insomnia, unspecified type 06/13/2018 Discontinued metoprolol tartrate TAKE 1 TABLET 180 tablet 0 (LOPRESSOR) 50 mg BY MOUTH 8 tabletIndications: TWICE DAILY Essential hypertension with goal blood pressure less than 140/90 06/13/2018 Discontinued lisinopril (PRINIVIL, TAKE 1 TABLET 270 tablet 0 ZESTRIL) 40 mg BY MOUTH 8 tabletIndications: EVERY DAY Essential hypertension, benign 08/14/2018 Discontinued mirtazapine (REMERON) 30 Take 1 tablet 30 tablet 3 mg tabletIndications: by mouth at 8 Severe single current bedtime episode of major nightly. depressive disorder, without psychotic features, KODY (generalized anxiety disorder), Insomnia, unspecified type 11/01/2018 Discontinued metoprolol tartrate Take 1 tablet 180 tablet 0 (LOPRESSOR) 50 mg by mouth 2 8 tabletIndications: times daily. Essential hypertension with goal blood pressure less than 140/90 06/21/2018 Discontinued amLODIPine (NORVASC) 5 mg Take 1 tablet 90 tablet 1 tabletIndications: by mouth 8 Essential hypertension daily. with goal blood pressure less than 140/90 11/01/2018 Discontinued DEXILANT 30 mg delayed TAKE 1 90 capsule 0 release CAPSULE BY 8 capsuleIndications: MOUTH EVERY Gastroesophageal reflux DAY disease without esophagitis Active Problems Problem Noted Date Pain due to internal orthopedic prosthetic device 02/22/2018 Impaired functional mobility, balance, gait, and endurance 11/03/2017 Reactive airway disease without complication 10/26/2017 Primary insomnia 10/26/2017 Gastroesophageal reflux disease without esophagitis 10/26/2017 Chronic seasonal allergic rhinitis due to pollen 10/26/2017 S/P total knee arthroplasty, right 10/26/2017 Grief 06/16/2016 Trigeminal neuralgia 03/11/2015 Exotropia of both eyes 03/11/2015 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 10/10/2012 Elevated LFTs 10/10/2012 Calcaneal spur 06/11/2010 Chronic midline low back pain with bilateral sciatica 03/10/2010 Well woman exam 01/28/2009 Acute pain of right knee 08/04/2008 Pain in joint, ankle and foot 08/04/2008 Health maintenance examination 08/04/2008 Essential hypertension Hyperlipemia Encounters Care Team Description Date Type Specialty Santino Gilbert MD Essential hypertension with goal blood pressure less than 140/90; Gastroesophageal reflux disease without esophagitis 11/01/2018 Refill Family Practice Alondra Felipe MD Essential hypertension (Primary Dx); Easy bruising; Mild intermittent reactive airway disease without complication; Gastroesophageal reflux disease without esophagitis; Breast cancer screening; Hyperlipidemia, unspecified hyperlipidemia type; Flu vaccine need 08/21/2018 Office Visit Family Practice Victor Hugo Yancey MD Memory change (Primary Dx); Severe single current episode of major depressive disorder, without psychotic features; KODY (generalized anxiety disorder); Insomnia, unspecified type 08/14/2018 Office Visit Psychiatry Santino Gilbert MD Acute sinusitis, unspecified 07/27/2018 Refill [facility] Santino Gilbert MD Gastroesophageal reflux disease without esophagitis 07/14/2018 Refill [facility] Santino Gilbert MD Jackson, Deborah F, RN Chest pain, unspecified type (Primary Dx); Essential hypertension 07/05/2018 Nurse Only Lela Jiang LVN Uncontrolled hypertension (Primary Dx) 06/21/2018 Nurse Only Santino Gilbert MD Essential hypertension with goal blood pressure less than 140/90 (Primary Dx); Mixed hyperlipidemia; Acute meniscal tear of knee, unspecified laterality, sequela; Chronic left-sided headaches; Primary osteoarthritis of right knee; Chronic midline low back pain without sciatica; Pain of both hip joints; Functional memory problem; Dietary counseling for Above / Below Normal BMI; Exercise counseling for Above Normal BMI Only! 06/13/2018 Office Visit Family Practice Hayden Molina, PT S/P total knee arthroplasty, right (Primary Dx); Impaired functional mobility, balance, gait, and endurance; Acute pain of right knee 05/02/2018 Therapy Physical Therapy Ely Moncada MDD (major depressive disorder), recurrent episode, moderate (Primary Dx) 04/30/2018 Office Visit Psychology Robert Gomez MD Acute pain of right knee 04/19/2018 Hospital Radiology Encounter Chau Chapman MD Martin, Stacey K, MD Acute pain of right knee (Primary Dx); S/P total knee arthroplasty, right 04/19/2018 Office Visit Orthopedics Hayden Molina, PT S/P total knee arthroplasty, right (Primary Dx); Impaired functional mobility, balance, gait, and endurance; Acute pain of right knee 04/19/2018 Therapy Physical Therapy Mauricio Smith 04/19/2018 Orders Only Radiology Jolie Kapoor RN Severe single current episode of major depressive disorder, without psychotic features; KODY (generalized anxiety disorder); Insomnia, unspecified type 04/17/2018 Refill Family Practice 04/12/2018 Ancillary Radiology Procedure AyalaBreonna, ABSENCE MANAGEMENT CONSULTANT Information Only 04/11/2018 Telephone [facility] Santino Gilbert MD Essential hypertension, benign 04/06/2018 Refill [facility] Santino Gilbert MD Essential hypertension with goal blood pressure less than 140/90 04/05/2018 Refill [facility] Hayden Molina, PT S/P total knee arthroplasty, right (Primary Dx); Impaired functional mobility, balance, gait, and endurance; Acute pain of right knee 04/04/2018 Therapy Physical Therapy Victor Hugo Yancey MD Severe single current episode of major depressive disorder, without psychotic features; OKDY (generalized anxiety disorder); Insomnia, unspecified type 04/03/2018 Office Visit Psychiatry Hayden Molina, PT S/P total knee arthroplasty, right (Primary Dx); Impaired functional mobility, balance, gait, and endurance; Acute pain of right knee 03/28/2018 Therapy Physical Therapy Santino Gilbert MD Essential hypertension, benign; Other hyperlipidemia 03/28/2018 Hospital Lab Encounter Santino Gilbert MD Essential hypertension, benign (Primary Dx); Other hyperlipidemia; S/P total knee arthroplasty, right; Sore throat; Cough 03/27/2018 Office Visit Family Practice Perez Castro MD Chronic pain of right knee (Primary Dx) 03/27/2018 Orders Only Family Practice Hayden Molina, PT S/P total knee arthroplasty, right (Primary Dx); Impaired functional mobility, balance, gait, and endurance; Acute pain of right knee 03/22/2018 Therapy Physical Therapy Santino Gilbert MD Acute meniscal tear of knee, unspecified laterality, sequela; Chronic left-sided headaches; Primary osteoarthritis of right knee; Chronic midline low back pain without sciatica; Pain of both hip joints 03/19/2018 Refill [facility] Perez Castro MD 03/13/2018 Hospital Radiology Encounter Santino Gilbert MD Chronic midline low back pain with bilateral sciatica (Primary Dx) 03/13/2018 Orders Only [facility] Santino Gilbert MD Chronic pain of right knee 03/09/2018 Refill [facility] Robert Gomez MD McAlister, Wade P, MD S/P total knee arthroplasty, right (Primary Dx); Pain due to internal orthopedic prosthetic device, initial encounter 03/08/2018 Office Visit Orthopedics Hayden Molina, PT S/P total knee arthroplasty, right (Primary Dx); Impaired functional mobility, balance, gait, and endurance; Acute pain of right knee 03/08/2018 Therapy Physical Therapy Santino Gilbert MD Shah, Nihita, MD Chronic pain of right knee (Primary Dx); Headache, unspecified headache type 03/07/2018 Office Visit [facility] Santino Gilbert MD McGregor, Julianne MDD (major depressive disorder), recurrent episode, moderate (Primary Dx) 03/07/2018 Office Visit Psychology Hayden Molina, BECKI Acute pain of right knee (Primary Dx); Impaired functional mobility, balance, gait, and endurance; S/P total knee arthroplasty, right 02/27/2018 Therapy Physical Therapy Robert Gomez MD McAlister, Wade P, MD Pain due to internal orthopedic prosthetic device, initial encounter (Primary Dx); S/P total knee arthroplasty, right; Acute pain of right knee 02/22/2018 Office Visit Orthopedics Robert Gomez MD Acute pain of right knee 02/22/2018 Hospital Radiology Encounter Hayden Molina, PT S/P total knee arthroplasty, right (Primary Dx); Impaired functional mobility, balance, gait, and endurance; Acute pain of right knee 02/22/2018 Therapy Physical Therapy Hayden Molina, PT S/P total knee arthroplasty, right (Primary Dx); Impaired functional mobility, balance, gait, and endurance; Acute pain of right knee 02/13/2018 Therapy Physical Therapy Victor Hugo Yancey MD Severe single current episode of major depressive disorder, without psychotic features; KODY (generalized anxiety disorder); Insomnia, unspecified type 02/01/2018 Refill Psychiatry Hayden Molina, PT S/P total knee arthroplasty, right (Primary Dx); Impaired functional mobility, balance, gait, and endurance; Acute pain of right knee 01/24/2018 Therapy Physical Therapy CoarlEly Severe episode of recurrent major depressive disorder, without psychotic features (Primary Dx) 01/22/2018 Office Visit Psychology Eun Lee MD History of total knee arthroplasty, right (Primary Dx) 01/11/2018 Office Visit Orthopedics Victor Hugo Yancey MD Severe single current episode of major depressive disorder, without psychotic features; KODY (generalized anxiety disorder); Insomnia, unspecified type 01/08/2018 Refill Psychiatry Hayden Molnia, PT S/P total knee arthroplasty, right (Primary Dx); Impaired functional mobility, balance, gait, and endurance; Acute pain of right knee 01/03/2018 Therapy Physical Therapy Hayden Molina, PT S/P total knee arthroplasty, right (Primary Dx); Impaired functional mobility, balance, gait, and endurance; Acute pain of right knee 12/27/2017 Therapy Physical Therapy Santino Gilbert MD Acute meniscal tear of knee, unspecified laterality, sequela; Chronic left-sided headaches; Primary osteoarthritis of right knee; Chronic midline low back pain without sciatica; Pain of both hip joints 12/21/2017 Refill [facility] Hayden Molina, PT S/P total knee arthroplasty, right (Primary Dx); Impaired functional mobility, balance, gait, and endurance; Acute pain of right knee 12/20/2017 Therapy Physical Therapy Hayden Molina, PT S/P total knee arthroplasty, right (Primary Dx); Impaired functional mobility, balance, gait, and endurance; Acute pain of right knee 12/13/2017 Therapy Physical Therapy Hayden Molina, PT S/P total knee arthroplasty, right (Primary Dx); Impaired functional mobility, balance, gait, and endurance; Acute pain of right knee 2017 Therapy Physical Therapy after 12/03/2017 Immunizations Name Dates Previously Given Next Due Influenza Vaccine 10/12/2016, 09/03/2015, 09/09/2014, 11/13/2013 (Deferred: Vaccine Unavailable), 08/15/2012, 08/25/2011 Influenza Vaccine, 09/04/2017 Seasonal, Injectable Influenza, 08/21/2018 Vaccine<FLUCELVAX>(Multi- Dose) Tdap Tetanus, diphtheria, 04/12/2011 acellular pertussis Vaccine Family History Medical History Relation Name Comments Other no family Hx of disease/illness Relation Name Status Comments Brother Alive Brother Alive Brother Alive Daughter Alive Daughter Alive Father Mother Alive Sister Alive Sister Alive Sister Alive Sister Alive Son Alive Son Alive Social History Date Tobacco Use Types Packs/Day Years Used Never Smoker Smokeless Tobacco: Never Used Tobacco Cessation: Counseling Given: No Alcohol Use Drinks/Week oz/Week Comments No Sex Assigned at Date Recorded Not on file Industry Job Start Date Occupation Not on file Not on file Not on file Travel End Travel History Travel Start No recent travel history available. Last Filed Vital Signs Time Taken Vital Sign Reading 08/21/2018 12:55 PM CDT Blood Pressure 140/75 08/21/2018 12:55 PM CDT Pulse 65 08/21/2018 12:55 PM CDT Temperature 36.9 C (98.4 F) 08/21/2018 12:55 PM CDT Respiratory Rate 18 - Oxygen Saturation - - Inhaled Oxygen - Concentration 08/21/2018 12:55 PM CDT Weight 80.7 kg (178 lb) 08/21/2018 12:55 PM CDT Height 167.6 cm (5' 6") 08/21/2018 12:55 PM CDT Body Mass Index 28.73 Plan of Treatment Health Maintenance Due Date Last Done Comments Breast Cancer Scrn 09/18/2018 09/18/2017, 06/27/2016, 06/16/2015, (Yearly) Additional history exists Colorectal Cancer Scrn 10/23/2018 10/23/2017, 10/13/2016, 05/04/2016 Annual (FIT/FOBT) Age 50 to 75 Goals Goal Patient Associated Recent Progress Patient-Stat Author Goal Type Problems ed? Eat Healthy Lifestyle No William Sanders LVN Reduce pain Lifestyle No Santino Gilbert MD Implants Device Identifier Shelf Expiration Date Model / Serial / Lot Implanted Type Area Manufactur er 01/03/2019 [id number] Arthroplasty Bone Cement Right: Knee(s) Cardinal Implanted: Qty: 1 on 10/26/2017 by Robert Lyon MD 11/24/2021 [id number] / / [id number] [employer] Primary Tibial Baseplate Right: Knee(s) GINGER Size #4 [employer]THOP[employer]I Implanted: Qty: 1 on 10/26/2017 by Robert Connelly MD STR 03/19/2022 [id number] / / [id number] [employer] Cruciate Retaining Right: Knee(s) GINGER Femoral Size #5 Side Rt Type Cr [employer] Implanted: Qty: 1 on 10/26/2017 by Robert Connelly MD STR 04/25/2022 [id number] / / [id number] [employer] Symmetric Patella Right: Knee(s) GINGER Diameter S31mm Thickness 9mm [employer] Implanted: Qty: 1 on 10/26/2017 by Robert Connelly MD STR 11/17/2021 [id number] / / [id number] [employer] Tibial Bearing Insert-Cs Right: Knee(s) GINGER Size #4 Type Cs Thickness 9mm [employer]TH[employer]I Implanted: Qty: 1 on 10/26/2017 by Robert Connelly MD STR Procedures Comments Procedure Name Priority Date/Time Associated Diagnosis 12 LEAD EKG STAT 07/05/2018 Chest pain, unspecified 10:30 AM CDT type HEMOGLOBIN A1C Routine 06/13/2018 Dietary counseling for 10:04 AM CDT Above / Below Normal BMI BASIC METABOLIC PANEL Routine 06/13/2018 Essential hypertension 10:04 AM CDT with goal blood pressure less than 140/90 LIPID PROFILE Routine 06/13/2018 Mixed hyperlipidemia 10:04 AM CDT XRAY KNEE 4 OR MORE VIEWS Routine 04/19/2018 Acute pain of right knee (ROUTINE W/ WT BEARIN:54 AM CDT AP/PA/LAT/SUN) DUPLEX DOPPLER LOWER Routine 04/12/2018 Chronic pain of right EXTREMITY VENOUS, 10:48 AM CDT knee UNILATERAL OR LIMITED LIPID PROFILE Routine 03/28/2018 Other hyperlipidemia 7:06 AM CDT COMPREHENSIVE METABOLIC Routine 03/28/2018 Essential hypertension, PANEL(DBIL NOT INCLUDED) 7:[address] HEAD W/O CONTRAST Routine 03/13/2018 Headache, unspecified 7:38 AM CDT headache type CBC/DIFF Routine 02/23/2018 S/P total knee 2:18 PM CDT arthroplasty, right CRP, HIGH SENS Routine 02/23/2018 S/P total knee 2:18 PM CDT arthroplasty, right SED RATE Routine 02/23/2018 S/P total knee 2:18 PM CDT arthroplasty, right XRAY KNEE 4 OR MORE VIEWS Routine 02/22/2018 Acute pain of right knee (ROUTINE W/ WT BEARIN:08 PM CDT AP/PA/LAT/SUN) after 12/03/2017 Results * 12 LEAD EKG (07/05/2018 10:30 AM CDT) 12 LEAD EKG FOR [facility] Test Date:2018-07-05 Pat Name: ZONIA LYNNE Department: Room: 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: [id number] :[id number] 12-06 Requested By: Order Number: [id number] thornton MD: Shey Moreland Measurements Intervals [place] Rate: 64 P:45 ND: 162 QRS: 20 QRSD: 82 T:37 QT: 382 QTc:394 Interpretive Statements Normal sinus rhythm Nonspecific ST and T wave abnormality Electronically Signed On 07-05-18 17:37:15 CDT by Shey Moreland Performing Organization Address City/State/[facility] Phone Number SMS * HEMOGLOBIN A1C (06/13/2018 10:04 AM CDT) Hemoglobin A1c 5.4 4.3 - 6.1 % BT DIAGNOSTIC IMMUNOLOGY Est Average 108.3 mg/dL BT DIAGNOSTIC Gluc IMMUNOLOGY Specimen Blood Performing Organization Address City/State/[facility] Phone Number MISYS DIAGNOSTIC IMMUNOLOGY * LIPID PROFILE (06/13/2018 10:04 AM CDT) Only the most recent of 2 results within the time period is included. Cholesterol 278 mg/dL BT [facility]IN[facility]ST[facility] Comment: 1 REFERENCE RANGE: Desirable: <200 mg/dL Borderline: 200-240 mg/dL High Risk: >240 mg/dL Triglyceride 359 (H) <150 mg/dL BT [facility] Comment: 1 REFERENCE RANGE: Normal: <150 mg/dL Borderline High: 150-199 mg/dL High: 200-499 mg/dL Very High: >dc=690 mg/dL HDL 55 mg/dL BT [facility] Comment: 1 Increased CHD risk: <40 mg/dL Decreased CHD risk: >60 mg/dL LDL 151 mg/dL BT [facility] Comment: 1 REFERENCE RANGE: Optimal: <100 mg/dL Near Optimal: 100-129 mg/dL Borderline High: 130-159 mg/dL High: 160-189 mg/dL Very High: >qw=186 mg/dL Specimen Blood Performing Organization Address [facility] Phone Number MISYS BT [facility]IN-STATION 1 * BASIC METABOLIC PANEL (06/13/2018 10:04 AM CDT) CO2 23 21 - 31 mmol/L BT [facility] 1 Chloride 108 (H) 98 - 107 mmol/L BT [facility] 1 Potassium 4.6 3.5 - 5.1 mmol/L BT [facility] 1 Sodium 141 136 - 145 mmol/L [facility] 1 Glucose 100 70 - 110 mg/dL [facility] 1 Urea Nitrogen 15 7 - 25 mg/dL [facility] 1 Creatinine 0.60 0.6 - 1.2 mg/dL [facility] 1 Anion Gap 10 [facility] 1 Calcium 10.2 8.6 - 10.3 mg/dL BT [facility] 1 GFR, Estimated >60 mL/min/1.73 m2 BT [facility] 1 GFR, Estim, >60 mL/min/1.73 m2 BT [facility]IN[facility] Afr-Am 1 Specimen Blood Performing Organization Address [facility] Phone Number MISYS MAIN-STATION 1 * XRAY KNEE 4 OR MORE VIEWS (ROUTINE W/ WT BEARING: AP/PA/LAT/SUN) (04/19/2018 9:54 AM CDT) Only the most recent of 2 results within the time period is included. Impressions Performed At IMPRESSION: Unchanged, satisfactory appearance of a right total knee SMS arthroplasty. Dictated By: Arturo Vega MD, 04/19/2018 10:34 AM I have reviewed the study and agree with the findings in this report. Signed By: Debbie Cain MD, 04/19/2018 5:01 PM Narrative Performed At EXAM: XR RIGHT KNEE 4 VIEWS [facility] DATE:04/19/2018 9:55 AM INDICATION: PAIN. Acute pain of right knee COMPARISON: Right knee radiographs from 02/22/2018 TECHNIQUE: Weight-bearing AP, PA, sunrise and lateral radiographs of the knee FINDINGS:Status post cruciate retaining total knee arthroplasty and patellar resurfacing without evidence of hardware failure. No acute fracture is identified. A small knee joint effusion is identified. No soft tissue abnormality is identified. Procedure Note Interface, Rad/Mammog In - 04/19/2018 5:06 PM [...] By: Debbie Cain MD, 04/19/2018 5:01 PM Performing Organization Address City/State/Zipcode Phone Number SMS * DUPLEX DOPPLER LOWER EXTREMITY VENOUS, UNILATERAL OR LIMITED (04/12/2018 10:48 AM CDT) Impressions Performed At IMPRESSION: SMS No evidence of deep venous thrombosis above the right calf. Dictated By: Anastacio Holt DO, 04/12/2018 10:50 AM I have reviewed the study and agree with the findings in this report. Signed By: Rahel Warren MD, 04/12/2018 11:00 AM Narrative Performed At EXAM: Right Lower Extremity Venous Duplex Ultrasound SMS INDICATION: 57 f with knee TKA right [...] demonstrates no subcutaneous mass or fluid collection. Procedure Note Interface, Rad/Mammog In - 04/12/2018 11:05 AM [...] By: Rahel Warren MD, 04/12/2018 11:00 AM Performing Organization Address City/State/Zipcode Phone Number SMS * COMPREHENSIVE METABOLIC PANEL(DBIL NOT INCLUDED) (03/28/2018 7:06 AM CDT) Albumin 4.3 3.4 - 5.0 g/dL [facility] 2 Calcium 9.5 8.50 - 10.20 mg/dL [facility] 2 CO2 24 21 - 32 mmol/L [facility] 2 Chloride 108 (H) 98 - 107 mmol/L [facility] 2 Creatinine 0.73 0.60 - 1.30 mg/dL [facility] 2 Glucose 94 70 - 99 mg/dL [facility] 2 Alk Phos 91 45 - 117 U/L [facility] 2 Potassium 4.6 3.50 - 5.10 mmol/L [facility] MAIN-STATION 2 Sodium 143 136 - 145 mmol/L [facility] 2 ALT 22 12 - 78 U/L [facility] 2 AST 16 15 - 37 U/L [facility] 2 Urea Nitrogen 21 (H) 7 - 18 mg/dL [facility] 2 T Bilirubin 0.4 0.2 - 1.0 mg/dL [facility] 2 T Protein 7.7 6.4 - 8.2 g/dL [facility] 2 GFR, Estimated >60 mL/min/1.73 m2 [facility]IN[facility] 2 GFR, Estim, >60 mL/min/1.73 m2 [facility] Afr-Am MAIN-STATION 2 Anion Gap 11 [facility]IN-[facility]ATION 2 Specimen Blood Performing Organization Address City/State/Zipcode Phone Number MISYS [facility]-ST[facility] 2 * CT HEAD W/O CONTRAST (03/13/2018 7:38 AM CDT) Impressions Performed At IMPRESSION: CT examination of the brain is unchanged. SMS Interpreted by Norris Cuevas M.D.,Staff radiologist. Signed By: Norris Cuevas MD, 03/13/2018 12:14 PM Narrative Performed At EXAM: CT BRAIN SMS DATE: 03/13/2018 7:38 AM INDICATION:states headache and [...] skull base demonstrates no significant interval change. Procedure Note Interface, Rad/Mammog In - 03/13/2018 12:19 PM [...] By: Norris Cuevas MD, 03/13/2018 12:14 PM Performing Organization Address [facility] Phone Number SMS * CRP, HIGH SENS (02/23/2018 2:18 PM CDT) CRP, high sens 0.730 <1.0 mg/dL [facility] 3 Specimen Blood Performing Organization Address [facility] Phone Number MISYS [facility]IN[facility] 3 * SED RATE (02/23/2018 2:18 PM CDT) Sed Rate <1Comment: Repeated to verify <30 mm/Hr BT [facility]IN[facility]STATION result 3 Specimen Blood Performing Organization Address [facility] Phone Number MISYS BT [facility]IN-STATION 3 * CBC/DIFF (02/23/2018 2:18 PM CDT) WBC 6.7 4.5 - 11.0 K/uL [facility] 2 RBC 4.49 4.20 - 5.40 M/uL [facility] 2 Hemoglobin 13.7 12.0 - 16.0 g/dL [facility] 2 Hematocrit 41.1 37.0 - 47.0 % [facility] 2 MCV 92 82 - 92 fL [facility] 2 MCH 30.5 27.0 - 32.0 pg [facility] 2 MCHC 33.3 32.0 - 36.0 g/dL [facility] 2 RDW 44.5 36.4 - 46.3 fL [facility] 2 Platelet 284 150 - 400 K/uL [facility] 2 Mean Platelet 10.1 9.4 - 12.4 fL [facility] Volume 2 Percent NRBC 0.0 [facility] 2 Absolute NRBC 0.00 [facility] 2 Neutrophil 41.6 34.0 - 70.0 % [facility] 2 Lymphocyte 47.7 20.0 - 50.0 % [facility] 2 Monocyte 6.9 5.0 - 12.0 % [facility] 2 Eosinophil 2.8 0.7 - 5.0 % [facility] 2 Basophil 0.9 0.1 - 1.2 % [facility] 2 Pct Immat Gran 0.1 0.0 - 0.5 [facility] 2 Neutrophil, Abs 2.78 1.56 - 6.13 K/uL [facility] 2 Lymphocyte, Abs 3.19 1.18 - 3.74 K/uL [facility] 2 Monocyte, Abs 0.46 (H) 0.24 - 0.36 K/uL [facility] 2 Eosinophil, Abs 0.19 0.04 - 0.36 K/uL [facility] 2 Basophil, Abs 0.06 0.01 - 0.08 K/uL BT [facility] 2 Absol Immat 0.01 0.00 - 0.03 K/uL BT [facility]IN[facility] Gran 2 Specimen Blood Performing Organization Address City/State/Zipcode Phone Number MISYS BT [facility]IN[facility] 2 after 12/03/2017 Insurance Type Payer Benefit Subscriber ID Effective Phone Address Plan / Dates Group [facility] xxxxxxxxx 2018-P [phone] [address] MEDICARE resent [id number] [place] [address] Advance Directives For more information, please contact: [address] [address] Date Inactivated Comments Code Status Date Activated 10/28/2017 5:14 PM Full Code 10/26/2017 11:59 AM 10/26/2017 11:59 AM Full Code 10/26/2017 11:30 AM
[2019-04-26 21:32] LABS: BASOPHILS # (AUTO) 0.1 (0.0-0.1); BASOPHILS % 0.6 % (0.0-1.0); EOSINOPHILS # (AUTO) 0.2 (0.0-0.4); EOSINOPHILS % 1.8 % (0.0-6.0); HEMATOCRIT 39.8 % (34.2-44.1); HEMOGLOBIN 13.7 g/dL (12.0-16.0); LYMPHOCYTES # (AUTO) 2.8 (1.0-3.2); LYMPHOCYTES % 34.1 % (18.0-39.1); MEAN CORPUSCULAR HEMOGLOBIN 31.6 pg (28-32); MEAN CORPUSCULAR HGB CONC 34.4 g/dL (31-35); MEAN CORPUSCULAR VOLUME 91.7 fL (81-99); MONOCYTES # (AUTO) 0.7 (0.2-0.8); MONOCYTES % 8.2 % (4.4-11.3); NEUTROPHILS # (AUTO) 4.5 (2.1-6.9); NEUTROPHILS % 54.9 % (38.7-80.0); PLATELET COUNT 313 x10e3/uL (140-360); RED BLOOD COUNT 4.34 x10e6/uL (3.6-5.1); RED CELL DISTRIBUTION WIDTH 13.6 % (11.7-14.4)
[2019-04-26 21:33] LABS: BILIRUBIN,URINE NEGATIVE (NEGATIVE); CLARITY,URINE CLEAR (CLEAR); COLOR,URINE YELLOW (YELLOW); KETONES,URINE NEGATIVE (NEGATIVE); LEUKOCYTE ESTERASE ,URINE TRACE (NEGATIVE); NITRITE,URINE NEGATIVE (NEGATIVE); PROTEIN,URINE DIPSTICK NEGATIVE (NEGATIVE); URINE UROBILINOGEN 0.2 mg/dL (0.2 - 1)
[2019-04-26 21:49] LABS: ALANINE AMINOTRANSFERASE 15 IU/L (0-55); ALBUMIN 4.7 g/dL (3.5-5.0); ALBUMIN/GLOBULIN RATIO 1.5 (0.8-2.0); ALKALINE PHOSPHATASE 79 IU/L (40-150); ANION GAP 14.9 mmol/L (8-16); BLOOD UREA NITROGEN 27 mg/dL (7-26); BUN/CREATININE RATIO 33 (6-25); CARBON DIOXIDE 22 mmol/L (22-29); CHLORIDE 105 mmol/L (98-107); CREATININE, SERUM 0.82 mg/dL (0.57-1.11); EST GLOMERULAR FILTRATION RATE > 60 ML/MIN (60-); GLUCOSE 92 mg/dL (74-118); LIPASE 32 U/L (8-78); POTASSIUM 3.9 mmol/L (3.5-5.1); SODIUM 138 mmol/L (136-145)
[2019-04-26 21:53] LABS: BACTERIA,URINE MODERATE /HPF; EPITHELIAL CELLS,URINE MODERATE /LPF
[2019-04-26] MEDS ORDERED: ONDANSETRON HCL INJ 2MG/ML 2ML 2 MG/ML VIAL IV STA (21:59)
[2019-04-26] MEDS ORDERED: KETOROLAC TROMETHAMINE 30 MG/ML VIAL IV STA (21:59)
[2019-04-26] MEDS ORDERED: CEFTRIAXONE SOD 1 GM/NS 50 ML 50 ML IV ONE (22:00)
[2019-04-26] MEDS ORDERED: LIDOCAINE 5% PATCH TP STA (22:20)
[2019-04-26] MEDS ORDERED: GABAPENTIN 300 MG CAP PO ONE (22:45)
[2019-04-26] MEDS ORDERED: GABAPENTIN 100 MG CAP PO SCH (22:45)
[2019-04-26] MEDS ORDERED: LIDOPATCH1 EACH TOP (23:18)
[2019-04-26] MEDS ORDERED: GABAPENTIN100 MG PO (23:18)
[2019-04-26 23:28] VITALS: BP 116/75
== END 2019-04-26 23:57 | disposition home or self-care (01) ==
LOC: ER 20:24
DX: R10.11 Right upper quadrant pain (principal)
CPT/HCPCS: 36415; 80053; 81001; 83690; 85025; 99283; J0696; J1885; J2405

== ENCOUNTER → 2019-04-29 | Day surgery (SDC) | payer MEDICARE, OTHER ==
[~2019-04-29] MED LIST changes: +BUPIVACAINE 0.25%/EPI 30ML SDV INJ ONE; +DEXAMETHASONE SOD PHOS INJ 4 MG/ML VIAL ONE; +FENTANYL CITRATE/PF 100MCG/2 ML INJ ONE; +GABAPENTIN100 MG PO; +GLYCOPYRROLATE INJ 1MG/ 5 ML SYR ONE; +HYDROCODONE/APAP 7.5MG-325MG 1 EA TAB ONE; +KETOROLAC TROMETHAMINE 30 MG/ML VIAL ONE; +LIDOCAINE HCL 2% LOCAL INJ 5 ML SDV VIAL INJ ONE; +LIDOPATCH1 EACH TOP; +MIDAZOLAM HCL 2 MG/2 ML VIAL ONE; +NEOSTIGMINE 5 MG/5ML SYR ONE; +ONDANSETRON HCL INJ 2MG/ML 2ML 2 MG/ML VIAL ONE; +PHENYLEPHRINE HCL 1% 10 MG/ML VIAL ONE; +POTASSIUM PO; +PROMETHAZINE HCL (IM) 25 MG/ML VIAL ONE; +PROPOFOL IV EMULSION 10 MG/ML 20 ML VIAL ONE; +ROCURONIUM BROMIDE 10 MG/ML 5ML VIAL ONE; +SEVOFLURANE INHAL SOLN 250 ML PEN BTL ONE
--- OUTSIDE RECORDS SUMMARY | 2019-04-29 06:53 | XMS REPORT | Clinical Summary ---
Author Author [facility] Address Unknown Phone Unavailable Care Team Providers Care Wheel Adjuster Name Role Phone PCP Unavailable Allergies Not [...] Not on file Results Not on fileafter 04/28/2018
[2019-04-29 15:30] VITALS: BP 120/79
--- NOTE | 2019-04-29 17:53 | Operative Report ---
DATE OF PROCEDURE: 04/29/2019 SURGEON: Chris Lynne MD PREOPERATIVE DIAGNOSES: Cholecystitis and cholelithiasis. POSTOPERATIVE DIAGNOSES: Cholecystitis and cholelithiasis. OPERATION PERFORMED: Laparoscopic cholecystectomy. STRAP SETTER: Dr. Clifford Lynne and JUAN RAMON Bland. ANESTHESIA: General. COMPLICATIONS: None. ESTIMATED BLOOD LOSS: Minimal. PROCEDURE IN DETAIL: With the patient lying in bed in the supine position under good general endotracheal anesthesia, the abdomen was prepped with Betadine solution and draped in the usual manner. A Veress needle was introduced into the umbilicus and pneumoperitoneum was established without any difficulty. An 11 mm trocar was placed into the umbilicus and a 10 mm video laparoscope was placed into the intra-abdominal cavity. Under direct vision, three 5 mm trocars were placed in the right subcostal region. Video laparoscopy at this point revealed a gallbladder that had multiple adhesions and contained numerous stones. There were also some adhesions to the lower abdomen from the patient's previous surgeries. These adhesions were then taken down. After this was done, the adhesions to the gallbladder were then slowly and carefully taken down and the peritoneum overlying the neck of the gallbladder was then opened. The cystic duct was identified and followed to its junction with the common duct. The cystic duct was then circumferentially dissected away from the common duct, doubly clipped and divided. The cystic artery was similarly doubly clipped and divided. The gallbladder was then slowly and carefully taken off the liver bed using the cautery scissors and perfect hemostasis was ascertained. The gallbladder was grasped through the umbilical port and removed without any difficulty. Video laparoscopy was then again carried out. The liver bed was found to be perfectly dry, all of the excess fluid was aspirated, the pneumoperitoneum was evacuated and all the trocars were removed under direct vision. The midline fascia at the umbilicus was then closed with a [id number] of 0 Vicryl. All layers were infiltrated on the way out with solution of 0.25% Marcaine. Subcutaneous tissue was approximated with 3-0 Vicryl and the skin was closed with subcuticular 5-0 Vicryl. Benzoin, Steri-Strips, and Band-Aids were applied. The sponge, lap, and needle count was correct. The patient tolerated the procedure well and returned to the recovery room in stable condition. MD PETER Blanc/LIZETT /[id number]
== END | disposition home or self-care (01) ==
LOC: OR 06:51
PROVIDERS: ATTEND Surgery
DX: K80.10 Calculus of gallbladder with chronic cholecystitis without obstruction (principal); K82.8 Other specified diseases of gallbladder; I10 Essential (primary) hypertension; J45.909 Unspecified asthma, uncomplicated; K21.9 Gastro-esophageal reflux disease without esophagitis; F32.9 Major depressive disorder, single episode, unspecified; F41.9 Anxiety disorder, unspecified
CPT/HCPCS: 47562; 88304; C1766; J1100; J1885; J2001; J2250; J2370; J2405; J2550; J2704; J3490; J3010

== ENCOUNTER → 2019-06-11 | Day surgery (SDC) | payer MEDICARE, OTHER ==
[~2019-06-11] MED LIST changes: -BUPIVACAINE 0.25%/EPI 30ML SDV INJ ONE; -DEXAMETHASONE SOD PHOS INJ 4 MG/ML VIAL ONE; -FENTANYL CITRATE/PF 100MCG/2 ML INJ ONE; -GLYCOPYRROLATE INJ 1MG/ 5 ML SYR ONE; -HYDROCODONE/APAP 7.5MG-325MG 1 EA TAB ONE; -KETOROLAC TROMETHAMINE 30 MG/ML VIAL ONE; -LIDOCAINE HCL 2% LOCAL INJ 5 ML SDV VIAL INJ ONE; -MIDAZOLAM HCL 2 MG/2 ML VIAL ONE; -NEOSTIGMINE 5 MG/5ML SYR ONE; -ONDANSETRON HCL INJ 2MG/ML 2ML 2 MG/ML VIAL ONE; -PHENYLEPHRINE HCL 1% 10 MG/ML VIAL ONE; -PROMETHAZINE HCL (IM) 25 MG/ML VIAL ONE; -PROPOFOL IV EMULSION 10 MG/ML 20 ML VIAL ONE; +PROPOFOL IV EMULSION 10 MG/ML 50 ML VIAL ONE; -ROCURONIUM BROMIDE 10 MG/ML 5ML VIAL ONE; -SEVOFLURANE INHAL SOLN 250 ML PEN BTL ONE
--- OUTSIDE RECORDS SUMMARY | 2019-06-11 05:36 | XMS REPORT | Continuity of Care Document ---
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 Impaired functional mobility, balance, gait, and endurance Active 11/03/2017 12/04/2018 [facility] Reactive airway disease without complication Active 10/26/2017 12/04/2018 [facility] Primary insomnia Active 10/26/2017 12/04/2018 [facility] Gastroesophageal reflux disease without esophagitis Active 10/26/2017 12/04/2018 [facility] Chronic seasonal allergic rhinitis due to pollen Active 10/26/2017 12/04/2018 [facility] S/P total knee arthroplasty, right Active 10/26/2017 12/04/2018 [facility] Grief Active 06/16/2016 12/04/2018 [facility] Trigeminal neuralgia Active 03/11/2015 12/04/2018 [facility] Exotropia of both eyes Active 03/11/2015 12/04/2018 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 Elevated LFTs Active 10/10/2012 12/04/2018 [facility] Calcaneal spur Active 06/11/2010 12/04/2018 [facility] Chronic midline low back pain with bilateral sciatica Active 03/10/2010 12/04/2018 [facility] Acute pain of right knee Active 08/04/2008 12/04/2018 [facility] Pain in joint, ankle and foot Active 08/04/2008 12/04/2018 [facility] Essential hypertension Active 12/04/2018 [facility] Hyperlipemia Active 12/04/2018 [facility] Essential hypertension with goal blood pressure less than 140/90 Active 12/04/2018 [facility] Easy bruising Active 12/04/2018 [facility] Mild intermittent reactive airway disease without complication Active 12/04/2018 [facility] Breast cancer screening Active 12/04/2018 [facility] Hyperlipidemia, unspecified hyperlipidemia type Active 12/04/2018 [facility] Flu vaccine need Active 12/04/2018 [facility] Severe single current episode of major depressive disorder, without psychotic features Active 12/04/2018 [facility] KODY Active 12/04/2018 [facility] Insomnia, unspecified type Active 12/04/2018 [facility] Memory change Active 12/04/2018 [facility] Acute sinusitis, unspecified Active 12/04/2018 [facility] Chest pain, unspecified type Active 12/04/2018 [facility] Uncontrolled hypertension Active 12/04/2018 [facility] Mixed hyperlipidemia Active 12/04/2018 [facility] Acute meniscal tear of knee, unspecified laterality, sequela Active 12/04/2018 [facility] Chronic left-sided headaches Active 12/04/2018 [facility] Primary osteoarthritis of right knee Active 12/04/2018 [facility] Chronic midline low back pain without sciatica Active 12/04/2018 [facility] Pain of both hip joints Active 12/04/2018 [facility] Dietary counseling Active 12/04/2018 [facility] Exercise counseling Active 12/04/2018 [facility] MDD , recurrent episode, moderate Active 12/04/2018 [facility] Essential hypertension, benign Active 12/04/2018 [facility] Other hyperlipidemia Active 12/04/2018 [facility] Sore throat Active 12/04/2018 [facility] Cough Active 12/04/2018 [facility] Chronic pain of right knee Active 12/04/2018 [facility] Pain due to internal orthopedic prosthetic device, initial encounter Active 12/04/2018 [facility] Headache, unspecified headache type Active 12/04/2018 [facility] Severe episode of recurrent major depressive disorder, without psychotic features Active 12/04/2018 [facility] History of total knee arthroplasty, right Active 12/04/2018 [facility] Medications Medication Details Route Status Patient Instructions Ordering Provider Order Date Source metoprolol tartrate (LOPRESSOR) 50 mg tablet TAKE 1 TABLET BY MOUTH TWICE DAILY Active 11/04/2018 [facility] DEXILANT 30 mg delayed release capsule TAKE 1 CAPSULE BY MOUTH EVERY DAY Active 11/04/2018 [facility] atorvastatin (LIPITOR) 20 mg tablet Take 1 tablet by mouth at bedtime nightly. Oral Active 08/21/2018 [facility] buPROPion (WELLBUTRIN XL) 150 mg extended release tablet Take 1 tablet by mouth every morning. Oral Active 08/14/2018 [facility] mirtazapine (REMERON) 30 mg tablet Take 1 tablet by mouth at bedtime nightly. Oral Active 08/14/2018 [facility] cetirizine (ZYRTEC) 10 mg tablet TAKE 1 TABLET BY MOUTH EVERY DAY Active 07/27/2018 [facility] DEXILANT 30 mg delayed release capsule TAKE 1 CAPSULE BY MOUTH EVERY DAY No Longer Active 07/20/2018 [facility] amLODIPine (NORVASC) 10 mg tablet Take 1 tablet by mouth daily. Oral Active 06/21/2018 [facility] metoprolol tartrate (LOPRESSOR) 50 mg tablet Take 1 tablet by mouth 2 times daily. Oral No Longer Active 06/13/2018 [facility] lisinopril (PRINIVIL, ZESTRIL) 40 mg tablet Take 1 tablet by mouth daily. Oral Active 06/13/2018 [facility] traMADol (ULTRAM) 50 mg tablet Take 1 tablet by mouth every 8 hours as needed for Pain. Oral Active 06/13/2018 [facility] gabapentin (NEURONTIN) 600 mg tablet Take 1 tablet by mouth 2 times daily. Oral Active 06/13/2018 [facility] amLODIPine (NORVASC) 5 mg tablet Take 1 tablet by mouth daily. Oral No Longer Active 06/13/2018 [facility] mirtazapine (REMERON) 30 mg tablet Take 1 tablet by mouth at bedtime nightly. Oral No Longer Active 04/18/2018 [facility] metoprolol tartrate (LOPRESSOR) 50 mg tablet TAKE 1 TABLET BY MOUTH TWICE DAILY No Longer Active 04/10/2018 [facility] lisinopril (PRINIVIL, ZESTRIL) 40 mg tablet TAKE 1 TABLET BY MOUTH EVERY DAY No Longer Active 04/10/2018 [facility] mirtazapine (REMERON) 30 mg tablet Take 1 tablet by mouth at bedtime nightly. Oral Inactive 04/03/2018 [facility] buPROPion (WELLBUTRIN XL) 150 mg extended release tablet Take 1 tablet by mouth every morning. Oral No Longer Active 04/03/2018 [facility] zolpidem (AMBIEN) 5 mg Tab Take 1 tablet by mouth nightly at bedtime as needed for Insomnia. Oral No Longer Active 04/03/2018 [facility] gabapentin (NEURONTIN) 800 mg tablet Take 1 tablet by mouth 2 times daily. Oral No Longer Active 03/27/2018 [facility] lisinopril (PRINIVIL, ZESTRIL) 40 mg tablet Take 1 tablet by mouth daily. Oral No Longer Active 03/27/2018 [facility] codeine-guaiFENesin (CHERATUSSIN AC) 10-100 mg/5 mL syrup Take 5 mL by mouth 3 times daily as needed for Cough. Oral No Longer Active 03/27/2018 [facility] traMADol (ULTRAM) 50 mg tablet Take 1 tablet by mouth every 8 hours as needed for Pain. Oral No Longer Active 03/22/2018 [facility] tiZANidine (ZANAFLEX) 4 mg tablet Take 1 tablet by mouth 3 times daily. Oral Active 03/13/2018 [facility] methocarbamol (ROBAXIN) 750 mg tablet Take 1 tablet by mouth 3 times daily. Oral No Longer Active 03/09/2018 [facility] naproxen (NAPROSYN) 250 mg tablet Take 1 tablet by mouth 2 times daily (with meals) for 30 days. Oral No Longer Active 03/08/2018 [facility] gabapentin (NEURONTIN) 300 mg capsule Take 2 capsules by mouth 3 times daily. Oral No Longer Active 03/08/2018 [facility] methocarbamol (ROBAXIN) 750 mg tablet Take 1 tablet by mouth 3 times daily. Oral No Longer Active 03/07/2018 [facility] gabapentin (NEURONTIN) 300 mg capsule Take 2 capsules by mouth 3 times daily. Oral No Longer Active 02/22/2018 [facility] mirtazapine (REMERON) 30 mg tablet Take 1 tablet by mouth at bedtime nightly. Oral No Longer Active 02/14/2018 [facility] gabapentin (NEURONTIN) 300 mg capsule Take 1 capsule by mouth 3 times daily for 30 days. Oral No Longer Active 01/11/2018 [facility] traMADol (ULTRAM) 50 mg tablet Take 1 tablet by mouth every 8 hours as needed for Pain. Oral No Longer Active 12/25/2017 [facility] cetirizine (ZYRTEC) 10 mg tablet Take 1 tablet by mouth daily. Oral No Longer Active 12/01/2017 [facility] traMADol (ULTRAM) 50 mg tablet Take 1 tablet by mouth every 6 hours as needed for Pain. Oral No Longer Active 11/30/2017 [facility] gabapentin (NEURONTIN) 600 mg tablet Take 1 tablet by mouth 3 times daily. Oral No Longer Active 11/30/2017 [facility] methocarbamol (ROBAXIN) 750 mg tablet Take 1 tablet by mouth 3 times daily. Oral No Longer Active 11/14/2017 [facility] traMADol (ULTRAM) 50 mg tablet Take 1 tablet by mouth every 6 hours as needed for Pain. Oral No Longer Active 11/08/2017 [facility] HYDROcodone-acetaminophen (NORCO) 10-325 mg tablet Take 1 to 2 tablets by mouth every 4 to 6 hours as needed for Pain. Oral No Longer Active 10/28/2017 [facility] traMADol (ULTRAM) 50 mg tablet Take 2 tablets by mouth every 6 hours as needed for Pain. Oral No Longer Active 10/28/2017 [facility] acetaminophen (TYLENOL) 325 mg tablet Take 2 tablets by mouth every 6 hours as needed for Pain. Oral No Longer Active 10/28/2017 [facility] aspirin 325 mg tablet Take 1 tablet by mouth 2 times daily for 40 days. Oral No Longer Active 10/28/2017 [facility] ergocalciferol (VITAMIN D2) 50,000 unit capsule Take 1 capsule by mouth weekly. Oral Active 10/28/2017 [facility] gabapentin (NEURONTIN) 300 mg capsule Take 1 capsule by mouth 3 times daily. Oral No Longer Active 10/28/2017 [facility] metoprolol tartrate (LOPRESSOR) 50 mg tablet Take 1 tablet by mouth 2 times daily. Oral No Longer Active 10/17/2017 [facility] amLODIPine (NORVASC) 2.5 mg tablet Take 1 tablet by mouth daily. Oral No Longer Active 10/17/2017 [facility] fluticasone-salmeterol (ADVAIR DISKUS) 250-50 mcg/dose diskus inhaler Inhale 1 Puff by mouth 2 times daily (autosubstitution from [employer]). Inhalation Active 10/16/2017 [facility] zolpidem (AMBIEN) 5 mg Tab Take 1 tablet by mouth nightly at bedtime as needed for Insomnia. Oral No Longer Active 09/15/2017 [facility] mirtazapine (REMERON) 30 mg tablet Take 1 tablet by mouth at bedtime nightly. Oral No Longer Active 09/15/2017 [facility] fluticasone (FLONASE) 50 mcg/actuation nasal spray Use 1 Spivey in each nostril daily. Active 09/05/2017 [facility] dexlansoprazole (DEXILANT) 30 mg delayed release capsule Take 1 capsule by mouth daily. Oral No Longer Active 07/12/2017 [facility] lisinopril (PRINIVIL, ZESTRIL) 40 mg tablet Take 1 tablet by mouth daily. Oral No Longer Active 04/06/2017 [facility] topiramate (TOPAMAX) 25 mg tablet Take 2 tablets by mouth in the morning and 3 tablets at night. Oral Active 02/27/2017 [facility] Allergies, Adverse Reactions, Alerts No Known Medication Allergies Immunizations Immunization Date Given Site Status Last Updated Comments Source Influenza, Vaccine<FLUCELVAX>(Multi-Dose) 08/21/[address] [facility] Influenza Vaccine, Seasonal, Injectable 09/04/[address] [facility] Influenza Vaccine 10/12/[address] [facility] Influenza Vaccine 09/03/[address] [facility] Influenza Vaccine 09/09/[address] [facility] Influenza Vaccine 11/13/2013 Not Given Deferred: Vaccine Unavailable [facility] Influenza Vaccine 08/15/[address] [facility] Influenza Vaccine 08/25/[address] [facility] Tdap Tetanus, diphtheria, acellular pertussis Vaccine 04/12/[address] [facility] Results Order Name Results Value Reference Range Date Interpretation Comments Source 12 LEAD EKG 12 LEAD EKG FOR [facility] Test Date:2018-07-05 Pat Name: ZONIA ARENAS Department: : Gender: FTechnician: [id number] Requested By: Order Number:Reading MD: Shey Moreland Measurements IntervalsAxis Rate: 64 P:45 CO: 162QRS:20 QRSD: 82 T:37 QT: 382 QTc:394 Interpretive Statements Normal sinus rhythm Nonspecific ST and T wave abnormality Electronically Signed On 07-05-18 17:37:15 CDT by Shey Moreland 07/05/2018 [facility] BASIC METABOLIC PANEL CO2 23 21 - 31 06/14/2018 [facility] BASIC METABOLIC PANEL Chloride 108 98 - 107 06/14/2018 [facility] BASIC METABOLIC PANEL Potassium 4.6 3.5 - 5.1 06/14/2018 [facility] BASIC METABOLIC PANEL Sodium 141 136 - 145 06/14/2018 [facility] BASIC METABOLIC PANEL Glucose 100 70 - 110 06/14/2018 [facility] BASIC METABOLIC PANEL Urea Nitrogen 15 7 - 25 06/14/2018 [facility] BASIC METABOLIC PANEL Creatinine 0.60 0.6 - 1.2 06/14/2018 [facility] BASIC METABOLIC PANEL Anion Gap 10 06/14/2018 [facility] BASIC METABOLIC PANEL Calcium 10.2 8.6 - 10.3 06/14/2018 [facility] BASIC METABOLIC PANEL GFR, Estimated >60 mL/min/1.73 m2 06/14/2018 [facility] BASIC METABOLIC PANEL GFR, Estim, Afr-Am >60 mL/min/1.73 m2 06/14/2018 [facility] BASIC METABOLIC PANEL Lab Interpretation Abnormal 06/14/2018 [facility] LIPID PROFILE Cholesterol 278 06/14/2018 REFERENCE RANGE:
Desirable: <200 mg/dL
Borderline: 200-240 mg/dL
High Risk: >240 mg/dL

[facility] LIPID PROFILE Triglyceride 359 <150 06/14/2018 REFERENCE RANGE:
Normal: <150 mg/dL
Borderline High: 150-199 mg/dL
High: 200-499 mg/dL
Very High: >xq=734 mg/dL

[facility] LIPID PROFILE HDL 55 06/14/2018 Increased CHD risk: <40 mg/dL
Decreased CHD risk: >60 mg/dL

[facility] LIPID PROFILE LDL 151 06/14/2018 REFERENCE RANGE:
Optimal: <100 mg/dL
Near Optimal: 100-129 mg/dL
Borderline High: 130-159 mg/dL
High: 160-189 mg/dL
Very High: >ih=840 mg/dL

[facility] LIPID PROFILE Lab Interpretation Abnormal 06/14/2018 [facility] HEMOGLOBIN A1C Hemoglobin A1c 5.4 4.3 - 6.1 06/13/2018 [facility] HEMOGLOBIN A1C Est Average Gluc 108.3 06/13/2018 [facility] COMPREHENSIVE METABOLIC PANEL(DBIL NOT INCLUDED) Albumin 4.3 3.4 - 5 03/28/2018 [facility] COMPREHENSIVE METABOLIC PANEL(DBIL NOT INCLUDED) Calcium 9.5 8.5 - 10.2 03/28/2018 [facility] COMPREHENSIVE METABOLIC PANEL(DBIL NOT INCLUDED) CO2 24 21 - 32 03/28/2018 [facility] COMPREHENSIVE METABOLIC PANEL(DBIL NOT INCLUDED) Chloride 108 98 - 107 03/28/2018 [facility] COMPREHENSIVE METABOLIC PANEL(DBIL NOT INCLUDED) Creatinine 0.73 0.6 - 1.3 03/28/2018 [facility] COMPREHENSIVE METABOLIC PANEL(DBIL NOT INCLUDED) Glucose 94 70 - 99 03/28/2018 [facility] COMPREHENSIVE METABOLIC PANEL(DBIL NOT INCLUDED) Alk Phos 91 45 - 117 03/28/2018 [facility] COMPREHENSIVE METABOLIC PANEL(DBIL NOT INCLUDED) Potassium 4.6 3.5 - 5.1 03/28/2018 [facility] COMPREHENSIVE METABOLIC PANEL(DBIL NOT INCLUDED) Sodium 143 136 - 145 03/28/2018 [facility] COMPREHENSIVE METABOLIC PANEL(DBIL NOT INCLUDED) ALT 22 12 - 78 03/28/2018 [facility] COMPREHENSIVE METABOLIC PANEL(DBIL NOT INCLUDED) AST 16 15 - 37 03/28/2018 [facility] COMPREHENSIVE METABOLIC PANEL(DBIL NOT INCLUDED) Urea Nitrogen 21 7 - 18 03/28/2018 [facility] COMPREHENSIVE METABOLIC PANEL(DBIL NOT INCLUDED) T Bilirubin 0.4 0.2 - 1 03/28/2018 [facility] COMPREHENSIVE METABOLIC PANEL(DBIL NOT INCLUDED) T Protein 7.7 6.4 - 8.2 03/28/2018 [facility] METABOLIC PANEL(DBIL NOT INCLUDED) GFR, Estimated >60 mL/min/1.73 m2 03/28/2018 [facility] COMPREHENSIVE METABOLIC PANEL(DBIL NOT INCLUDED) GFR, Estim, Afr-Am >60 mL/min/1.73 m2 03/28/2018 [facility] COMPREHENSIVE METABOLIC PANEL(DBIL NOT INCLUDED) Anion Gap 11 03/28/2018 [facility] COMPREHENSIVE METABOLIC PANEL(DBIL NOT INCLUDED) Lab Interpretation Abnormal 03/28/2018 [facility] CRP, HIGH SENS CRP, high sens 0.730 <1.0 02/24/2018 [facility] SED RATE Sed Rate <1 <30 mm/Hr 02/24/2018 Repeated to verify result [facility] CBC/DIFF WBC 6.7 4.5 - 11 02/24/2018 [facility] CBC/DIFF RBC 4.49 4.20 - 5.40 02/24/2018 [facility] CBC/DIFF Hemoglobin 13.7 12 - 16 02/24/2018 [facility] CBC/DIFF Hematocrit 41.1 37 - 47 02/24/2018 [facility] CBC/DIFF MCV 92 82 - 92 02/24/2018 [facility] CBC/DIFF MCH 30.5 27 - 32 02/24/2018 [facility] CBC/DIFF MCHC 33.3 32 - 36 02/24/2018 [facility] CBC/DIFF RDW 44.5 36.4 - 46.3 02/24/2018 [facility] CBC/DIFF Platelet 284 150 - 400 02/24/2018 [facility] CBC/DIFF Mean Platelet Volume 10.1 9.4 - 12.4 02/24/2018 [facility] CBC/DIFF Percent NRBC 0.0 02/24/2018 [facility] CBC/DIFF Absolute NRBC 0.00 02/24/2018 [facility] CBC/DIFF Neutrophil 41.6 34 - 70 02/24/2018 [facility] CBC/DIFF Lymphocyte 47.7 20 - 50 02/24/2018 [facility] CBC/DIFF Monocyte 6.9 5 - 12 02/24/2018 [facility] CBC/DIFF Eosinophil 2.8 0.7 - 5 02/24/2018 [facility] CBC/DIFF Basophil 0.9 0.1 - 1.2 02/24/2018 [facility] CBC/DIFF Pct Immat Gran 0.1 0.0 - 0.5 02/24/2018 [facility] CBC/DIFF Neutrophil, Abs 2.78 1.56 - 6.13 02/24/2018 [facility] CBC/DIFF Lymphocyte, Abs 3.19 1.18 - 3.74 02/24/2018 [facility] CBC/DIFF Monocyte, Abs 0.46 0.24 - 0.36 02/24/2018 [facility] CBC/DIFF Eosinophil, Abs 0.19 0.04 - 0.36 02/24/2018 [facility] CBC/DIFF Basophil, Abs 0.06 0.01 - 0.08 02/24/2018 [facility] CBC/DIFF Absol Immat Gran 0.01 0 - 0.03 02/24/2018 [facility] CBC/DIFF Lab Interpretation Abnormal 02/24/2018 [facility] Activated partial thromboplastin time (aPTT) in platelet poor plasma bycoagulation assay Activated partial thromboplastin time (aPTT) in platelet poor plasma bycoagulation assay 26.1 23.8 - 35.5 12/20/2017 [facility] Automated blood basophil count (count/volume) Automated blood basophil count (count/volume) 0.1 0.0 - 0.1 12/20/2017 [facility] Automated blood basophil count as percentage of total leukocytes Automated blood basophil count as percentage of total leukocytes 0.5 0.0 - 1.0 12/20/2017 [facility] Automated blood eosinophil count Automated blood eosinophil count 0.3 0.0 - 0.4 12/20/2017 [facility] Automated blood eosinophil count as percentage of total leukocytes Automated blood eosinophil count as percentage of total leukocytes 2.7 0.0 - 6.0 12/20/2017 [facility] Automated blood hematocrit (volume fraction) Automated blood hematocrit (volume fraction) 39.2 34.2 - 44.1 12/20/2017 [facility] Automated blood lymphocyte count as percentage ot total leukocytes Automated blood lymphocyte count as percentage ot total leukocytes 16.7 18.0 - 39.1 12/20/2017 [facility] Automated blood monocyte count as percentage of total leukocytes Automated blood monocyte count as percentage of total leukocytes 4.5 4.4 - 11.3 12/20/2017 [facility] Automated blood neutrophil count Automated blood neutrophil count 9.4 2.1 - 6.9 12/20/2017 [facility] Automated blood platelet count (count/volume) Automated blood platelet count (count/volume) 283 140 - 360 12/20/2017 [facility] Automated blood segmented neutrophil count as percentage of total leukocytes Automated blood segmented neutrophil count as percentage of total leukocytes 75.3 38.7 - 80.0 12/20/2017 [facility] Automated erythrocyte mean corpuscular hemoglobin (mass per erythrocyte) Automated erythrocyte mean corpuscular hemoglobin (mass per erythrocyte) 30.4 28 - 32 12/20/2017 [facility] Automated erythrocyte mean corpuscular hemoglobin concentration measurement (mass/volume) Automated erythrocyte mean corpuscular hemoglobin concentration measurement (mass/volume) 32.9 31 - 35 12/20/2017 [facility] Automated erythrocyte mean corpuscular volume Automated erythrocyte mean corpuscular volume 92.5 81 - 99 12/20/2017 [facility] Blood erythrocytes automated count (number/volume) Blood erythrocytes automated count (number/volume) 4.24 3.6 - 5.1 12/20/2017 [facility] Blood hemoglobin measurement (moles/volume) Blood hemoglobin measurement (moles/volume) 12.9 12.0 - 16.0 12/20/2017 [facility] Blood leukocytes automated count (number/volume) Blood leukocytes automated count (number/volume) 12.42 4.8 - 10.8 12/20/2017 [facility] Blood lymphocytes count (number/volume) Blood lymphocytes count (number/volume) 2.1 1.0 - 3.2 12/20/2017 [facility] Blood monocytes automated count (number/volume) Blood monocytes automated count (number/volume) 0.6 0.2 - 0.8 12/20/2017 [facility] Estimated glomerular filtration rate (GFR) determination Estimated glomerular filtration rate (GFR) determination >60 60 12/20/2017 [facility] Glucose measurement Glucose measurement 111 74 - 118 12/20/2017 [facility] INR in Platelet poor plasma by Coagulation assay INR in Platelet poor plasma by Coagulation assay 1.08 12/20/2017 [facility] Plasma globulin measurement (mass/volume) Plasma globulin measurement (mass/volume) 3.9 2.3 - 3.5 12/20/2017 [facility] Prothrombin time (PT) in platelet poor plasma by coagulation assay Prothrombin time (PT) in platelet poor plasma by coagulation assay 13.2 11.9 - 14.5 12/20/2017 [facility] Serum or plasma alanine aminotransferase measurement (enzymatic activity/volume) Serum or plasma alanine aminotransferase measurement (enzymatic activity/volume) 32 0 - 55 12/20/2017 [facility] Serum or plasma albumin measurement (mass/volume) Serum or plasma albumin measurement (mass/volume) 4.3 3.5 - 5.0 12/20/2017 [facility] Serum or plasma albumin/globulin mass ratio Serum or plasma albumin/globulin mass ratio 1.1 0.8 - 2.0 12/20/2017 [facility] Serum or plasma alkaline phosphatase measurement (enzymatic activity/volume) Serum or plasma alkaline phosphatase measurement (enzymatic activity/volume) 125 40 - 150 12/20/2017 [facility] Serum or plasma amylase measurement (enzymatic activity/volume) Serum or plasma amylase measurement (enzymatic activity/volume) 60 25 - 125 12/20/2017 [facility] Serum or plasma anion gap Serum or plasma anion gap 13.6 8 - 16 12/20/2017 [facility] Serum or plasma calcium measurement (mass/volume) Serum or plasma calcium measurement (mass/volume) 9.2 8.4 - 10.2 12/20/2017 [facility] Serum or plasma carbon dioxide, total measurement (moles/volume) Serum or plasma carbon dioxide, total measurement (moles/volume) 20 22 - 29 12/20/2017 [facility] Serum or plasma chloride measurement (moles/volume) Serum or plasma chloride measurement (moles/volume) 108 98 - 107 12/20/2017 [facility] Serum or plasma creatine kinase MB measurement (mass/volume) Serum or plasma creatine kinase MB measurement (mass/volume) 0.40 0.00 - 5.00 12/20/2017 [facility] Serum or plasma creatine kinase measurement (enzymatic activity/volume) Serum or plasma creatine kinase measurement (enzymatic activity/volume) 33 29 - 168 12/20/2017 [facility] Serum or plasma creatinine measurement (mass/volume) Serum or plasma creatinine measurement (mass/volume) 0.77 0.57 - 1.11 12/20/2017 [facility] Serum or plasma lipase measurement (enzymatic activity/volume) Serum or plasma lipase measurement (enzymatic activity/volume) 22 8 - 78 12/20/2017 [facility] Serum or plasma potassium measurement (moles/volume) Serum or plasma potassium measurement (moles/volume) 3.6 3.5 - 5.1 12/20/2017 [facility] Serum or plasma protein measurement (mass/volume) Serum or plasma protein measurement (mass/volume) 8.2 6.5 - 8.1 12/20/2017 [facility] Serum or plasma sodium measurement (moles/volume) Serum or plasma sodium measurement (moles/volume) 138 136 - 145 12/20/2017 [facility] Serum or plasma total bilirubin measurement (mass/volume) Serum or plasma total bilirubin measurement (mass/volume) 0.6 0.2 - 1.2 12/20/2017 [facility] Serum or plasma troponin i.cardiac measurement by detection limit <=0.01 NG/ml (mass/volume) Serum or plasma troponin i.cardiac measurement by detection limit <=0.01 NG/ml (mass/volume) 0.001 0 - 0.300 12/20/2017 [facility] Serum or plasma urea nitrogen measurement (mass/volume) Serum or plasma urea nitrogen measurement (mass/volume) 23 7 - 26 12/20/2017 [facility] Serum or plasma urea nitrogen/creatinine mass ratio Serum or plasma urea nitrogen/creatinine mass ratio 30 6 - 25 12/20/2017 [facility] Red Cell Distribution Width 12.7 11.7 - 14.4 12/20/2017 [facility] IM GRANULOCYTES % 0.3 0.0 - 1.0 12/20/2017 [facility] Absolute Immature Granulocyte (auto 0.04 0 - 0.1 12/20/2017 [facility] Aspartate Amino Transf (AST/SGOT) 63 5 - 34 12/20/2017 [facility] B-Type Natriuretic Peptide <10.0 0 - 100 12/20/2017 [facility] Pathology Reports No Data Provided for This Section Diagnostic Reports Report Value Date Source XRAY KNEE 4 OR MORE VIEWS (ROUTINE W/ WT BEARING: AP/PA/LAT/SUN) IMPRESSION: Unchanged, satisfactory appearance of a right total kneearthroplasty. Dictated By: Arturo Vega MD, 04/19/2018 10:34 AM I have reviewed the study and agree with the findings in this report. Signed By: Debbie Cain MD, 04/19/2018 5:01 PM EXAM: XR RIGHT KNEE 4 VIEWS DATE:04/19/2018 9:55 AM INDICATION: PAIN. Acute pain of right knee COMPARISON: Right knee radiographs from 02/22/2018 TECHNIQUE: Weight-bearing AP, PA, sunrise and lateral radiographs of theknee FINDINGS:Status post cruciate retaining total knee arthroplasty andpatellar resurfacing without evidence of hardware failure. No acutefracture is identified. A small knee joint effusion is identified. No soft tissue abnormality isidentified. Interface, Rad/Mammog In - 04/19/2018 5:06 PM CDTEXAM: XR RIGHT KNEE 4 VIEWS DATE: 04/19/2018 [...] Debbie Cain MD, 04/19/2018 5:01 PM 04/19/2018 [facility] DUPLEX DOPPLER LOWER EXTREMITY VENOUS, UNILATERAL OR LIMITED IMPRESSION: No evidence of deep venous thrombosis above the right calf. Dictated By: Anastacio Holt DO, 04/12/2018 10:50 AM I have reviewed the study and agree with the findings in this report. Signed By: Rahel Warren MD, 04/12/2018 11:00 AM EXAM: Right Lower Extremity Venous Duplex UltrasoundINDICATION: 57 f with knee TKA right side and has pain in the lateralknee/lower knee area area for 3 mths,COMPARISON: None TECHNIQUE: Aaron scale, color Doppler and spectral waveform analysis ofthe right lower extremity deep venous system was performed. FINDINGS: Common Femoral: Fully compressible with normal spontaneous waveforms. Proximal Greater Saphenous: Fully compressible. Femoral: Fully compressible with normal spontaneous waveforms. Normalresponse to augmentation. Proximal Deep Femoral: Normal spontaneous waveforms. Popliteal: Fully compressible with normal spontaneous waveforms. Other: Grayscale and color Doppler imaging of the lateral kneedemonstrates no subcutaneous mass or fluid collection. Interface, Rad/Mammog In - 04/12/2018 11:05 AM CDTEXAM: Right Lower Extremity Venous Duplex Ultrasound INDICATION: [...] Rahel Warren MD, 04/12/2018 11:00 AM 04/12/2018 [facility] [address] HEAD W/O CONTRAST IMPRESSION: CT examination of the brain is unchanged. Interpreted by Norris Cuevas M.D.,Staff radiologist. Signed By: Norris Cuevas MD, 03/13/2018 12:14 PM EXAM: CT BRAIN DATE: 03/13/2018 7:38 AM INDICATION:states headache and vision problems with the new eye glasses COMPARISON: May 15, 2014 TECHNIQUE: Contiguous axial images of the brain are obtained from theskull base to the vertex without administration of intravenous contrastmaterial. Bone and soft tissue algorithms are provided. DISCUSSION:The appearance of the brain parenchyma is unchanged. Inparticular, there has been no interval infarct, hemorrhage ordevelopment of hydrocephalus. Left parietal extra-axial dystrophiccalcification is unchanged. There is no radiographic evidence ofincreased intracranial pressure. Incidental imaging of the orbits, paranasal sinuses, skull, and skullbase demonstrates no significant interval change. Interface, Rad/Mammog [...] Norris Cuevas MD, 03/13/2018 12:14 PM 03/13/2018 [facility] Consultation Notes No Data Provided for This Section Discharge Summaries No Data Provided for This Section History and Physicals No Data Provided for This Section Vital Signs Vital Sign Value Date Comments Source Systolic (mm Hg) 140 08/21/2018 [facility] Diastolic (mm Hg) 75 08/21/2018 [facility] Heart Rate 65 08/21/2018 [facility] Temperature Oral (F) 36.89 Anya 08/21/2018 [facility] Respitory Rate 18 08/21/2018 [facility] Height 167.6 cm 08/21/2018 [facility] Weight 80.74 08/21/2018 [facility] Encounters Location Location Details Encounter Type Encounter Number Reason For Visit Attending Provider ADM Date DC Date Status Source Physical Therapy [facility] [id number] Hayden Molina PT [address] [facility] [id number] Hayden Molina PT 12/13/2017 12/13/2017 [facility] Depart Emergency Room [id number] DER TOLEDO MD 12/20/2017 12/20/2017 [facility] [id number] Hayden Molina PT 12/20/2017 12/20/2017 [facility] [place] Refill [id number] Santino Gilbert MD 12/21/2017 [facility] [id number] Hayden Molina PT 12/27/2017 12/27/2017 [facility] [id number] Hayden Molina PT 01/03/2018 01/03/2018 [facility]iat[facility] [place] Refill [id number] Victor Hugo Yancey MD 01/08/2018 [facility] [place] [id number] Eun Lee MD 01/11/2018 01/11/2018 [facility] Behavioral Health[facility] [place] Office Visit [id number] Ely Moncada 01/22/2018 01/23/2018 [facility] [id number] Hayden Molina PT 01/24/2018 01/24/2018 [facility] [place] Refill [id number] Victor Hugo Yancey MD 02/01/2018 [facility] [id number] Hayden Molina PT 02/13/2018 02/13/2018 [facility] [id number] Hayden Molina PT 02/22/2018 02/22/2018 [facility] [place] [facility] [id number] Robert Gomez MD 02/22/2018 02/23/2018 [facility] [place] [id number] Robert Gomez MD 02/22/2018 02/22/2018 [facility] [id number] Hayden Molina PT 02/27/2018 02/27/2018 [facility] [place] Office Visit [id number] Santino Gilbert MD 03/07/2018 03/07/2018 [facility] [place] Office Visit [id number] Santino Gilbert MD 03/07/2018 03/07/2018 [facility] [id number] Hayden Molina PT 03/08/2018 03/08/2018 [facility] [place] Visit [id number] Robert Gomez MD 03/08/2018 03/08/2018 [facility] [place] Refill [id number] Santino Gilbert MD 03/09/2018 [facility] [place] Orders Only [id number] Santino Gilbert MD 03/13/[address] [facility] [address] Scan [facility] Encounter [id number] Perez Castro MD 03/13/2018 03/14/2018 [facility] [place] Refill [id number] Santino Gilbert MD 03/19/2018 [facility] [id number] Hayden Molina PT 03/22/2018 03/22/2018 [facility] [place] Orders Only [id number] Perez Castro MD 03/27/2018 [facility] [place] Office Visit [id number] Santino Gilbert MD 03/27/2018 03/27/2018 [facility] [place] [facility] [id number] Santino Gilbert MD 03/28/2018 03/29/2018 [facility] [id number] Hayden Molina PT 03/28/2018 03/28/2018 [facility] [place] Office Visit [id number] Victor Hugo Yancey MD 04/03/2018 04/03/2018 [facility] [id number] Hayden Molina PT 04/04/2018 04/04/2018 [facility] [place] Refill [id number] Santino Gilbert MD 04/05/2018 [facility] [place] Refill [id number] Santino Gilbert MD 04/06/2018 [facility] [place] Telephone [id number] Breonna Ayala WATER TREATMENT OPERATOR 04/11/2018 [facility] [place] Ultrasound Ancillary Procedure [id number] 04/12/2018 04/12/2018 [facility] [place] Refill [id number] Jolie Kapoor RN 04/17/2018 [facility] Diagnostic Radiology [facility] Orders Only [id number] Mauricio Smith 04/19/2018 [facility] Physical [facility] [id number] Hayden Molina PT 04/19/2018 04/19/2018 [facility] [place] Office Visit [id number] Chau Chapman MD 04/19/2018 04/19/2018 [facility] [place] [facility] En[facility] [id number] Robert Gomez MD 04/19/2018 04/20/2018 [facility] [place] Office Visit [id number] Ely Moncada 04/30/2018 04/30/2018 [facility] [id number] Hayden Molina PT 05/02/2018 05/02/2018 [facility] [place] Office Visit [id number] Santino Gilbert MD 06/13/2018 06/13/2018 [facility] Nursing [place] Nurse Only [id number] Lela Jiang WATER TREATMENT OPERATOR 06/21/2018 06/21/2018 [facility] [place] Nurse Only [id number] Santino Gilbert MD 07/05/2018 07/05/2018 [facility] [place] Refill [id number] Santino Gilbert MD 07/14/2018 [facility] [place] Refill [id number] Santino Gilbert MD 07/27/2018 [facility] Psychiat[facility] [place] Office Visit [id number] Victor Hugo Yancey MD 08/14/2018 08/14/2018 [facility] [place] Office Visit [id number] Alondra Felipe MD 08/21/2018 08/21/2018 [facility] [place] Refill [id number] Santino Gilbert MD 11/01/2018 [facility] Procedures Procedure Code Date Perfomer Comments Source 12 LEAD EKG 11255 07/05/2018 [facility] LIPID PROFILE 51492 06/13/2018 [facility] BASIC METABOLIC PANEL 10176 06/13/2018 [facility] HEMOGLOBIN A1C 19645 06/13/2018 [facility] XRAY KNEE 4 OR MORE VIEWS (ROUTINE W/ WT BEARING: AP/PA/LAT/SUN) 78879 04/19/2018 [facility] DUPLEX DOPPLER LOWER EXTREMITY VENOUS, UNILATERAL OR LIMITED 69739 04/12/2018 [facility] COMPREHENSIVE METABOLIC PANEL(DBIL NOT INCLUDED) 58702 03/28/2018 [facility] LIPID PROFILE 88833 03/28/[address] [facility] [address] HEAD W/O CONTRAST 43765 03/13/2018 [facility] SED RATE 28797 02/24/2018 [facility] CRP, HIGH SENS 63419 02/24/2018 [facility] CBC/DIFF 23892 02/24/2018 [facility] XRAY KNEE 4 OR MORE VIEWS (ROUTINE W/ WT BEARING: AP/PA/LAT/SUN) 61568 02/23/2018 [facility] Assessment and Plan No Data Provided for This Section Plan of Care Plan of Care Date Source Colorectal Cancer Scrn Annual (FIT/FOBT) Age 50 to 75 10/23/2018 [facility] Breast Cancer Scrn (Yearly) 09/18/2018 [facility] Discharge Date 12/20/17 5:34pm Disposition HOME, SELF-CARE Condition at Discharge Stable Instructions/Education Provided Abdominal Pain - Adult Forms Provided Work/School Excuse Prescriptions See Medication Section Referrals SU RODRIGUEZ Address: [facility] [address] [place] [address] ROBBIE ERICKSON MD Address: [address] [place] [address] [id number] Additional Instructions/Education 1. increase oral fluids 2. bland diet 3. follow up with GI doctor and primary doctor in 1-2 days without fail 4. return to ed as needed 12/20/2017 [facility] Social History Social History Date Source Tobacco UseTypesPacks/DayYears UsedDate Never Smoker Smokeless Tobacco: Never Used Tobacco Cessation: Counseling Given: No Alcohol UseDrinks/Weekoz/WeekComments No Sex Assigned at BirthDate Recorded Not on file Job Start DateOccupationIndustry Not on file Not on file Not on file Travel HistoryTravel StartTravel End No recent travel history available. 08/14/2018 [facility] No social history information available. 12/20/2017 [facility] Family History Value Date Source Medical HistoryRelationNameComments Other no family Hx of disease/illness RelationNameStatusComments Brother Alive Brother Alive Brother Alive Daughter Alive Daughter Alive Father Mother Alive Sister Alive Sister Alive Sister Alive Sister Alive Son Alive Son Alive 12/04/2018 [facility] Advance Directives Order Name Results Value Date Source Advance Directives Advance Directives For more information, please contact:[address] [id number] Code Status on FileCode StatusDate ActivatedDate InactivatedComments Full Code 10/26/2017 11:59 AM 10/28/2017 5:14 PM Full Code 10/26/2017 11:30 AM 10/26/2017 11:59 AM 12/04/2018 [facility] Advance Directives Advance Directives Directive Response Recorded Date/Time Does the patient have an advance directive? No 12/20/17 1:23pm If yes, is advance directive on file with [facility]? No 12/20/17 1:23pm If not on file with [facility] will patient provide a copy? No 12/20/17 1:23pm Do you have a Directive to Physician? No 12/20/17 1:23pm Do you have a Medical Power of Machine Wood Sander? No 12/20/17 1:23pm Do you have an out of hospital Do Not Resuscitate Order? No 12/20/17 1:23pm Do you have any special needs we should be aware of? No 12/20/17 1:23pm Do you have a support person here with you today? No 12/20/17 1:23pm Did patient receive Notice of Privacy Practices? Yes 12/20/17 1:23pm Did patient receive patient rights and responsibilities? Yes 12/20/17 1:23pm 12/20/2017 [facility] Functional Status No Data Provided for This Section
--- OUTSIDE RECORDS SUMMARY | 2019-06-11 05:36 | XMS REPORT | Clinical Summary ---
Author Author [facility] Address Unknown Phone Unavailable Care Team Providers Care Motorcycle Mechanic Name Role Phone PCP Unavailable Allergies Not [...] Not on file Results Not on fileafter 06/10/2018
--- NOTE | 2019-06-11 07:05 | NUR ---
SPIRITUAL CARE - Pre-Surgery Assessment: Pt in bed. Pt reported supportive attention from family and friends. Intervention: I provided pastoral presence, hospitality, and sympathetic listening. I acquainted pt with availability of key worker while hospitalized. Outcome: Pt expressed appreciation for visit. No need for follow up indicated at this time. MANAS Ramoslain Spiritual Care Department O: [phone] Pager: [phone] ([phone] number calling from)
[2019-06-11 09:00] VITALS: BP 118/62
== END | disposition home or self-care (01) ==
LOC: OR 05:33
PROVIDERS: ATTEND Internal Medicine Gastroenterology
DX: K29.50 Unspecified chronic gastritis without bleeding (principal); K31.7 Polyp of stomach and duodenum; K21.9 Gastro-esophageal reflux disease without esophagitis; K44.9 Diaphragmatic hernia without obstruction or gangrene; B96.81 Helicobacter pylori [H. pylori] as the cause of diseases classified elsewhere; K58.9 Irritable bowel syndrome, unspecified; R19.7 Diarrhea, unspecified; E27.9 Disorder of adrenal gland, unspecified; R07.9 Chest pain, unspecified; R41.0 Disorientation, unspecified; R42 Dizziness and giddiness; J45.909 Unspecified asthma, uncomplicated; I10 Essential (primary) hypertension; F41.9 Anxiety disorder, unspecified; F32.9 Major depressive disorder, single episode, unspecified; Z01.810 Encounter for preprocedural cardiovascular examination; Z68.31 Body mass index [BMI] 31.0-31.9, adult; Z80.0 Family history of malignant neoplasm of digestive organs
CPT/HCPCS: 43239; 93005; J2704; 43235

== ENCOUNTER → 2020-08-25 | Day surgery (SDC) | payer MEDICARE, OTHER ==
[2020-08-20 09:14] LABS: BASOPHILS # (AUTO) 0.1 (0.0-0.1); BASOPHILS % 1.2 % (0.0-1.0); EOSINOPHILS # (AUTO) 0.2 (0.0-0.4); EOSINOPHILS % 3.5 % (0.0-6.0); HEMATOCRIT 41.6 % (34.2-44.1); HEMOGLOBIN 13.8 g/dL (12.0-16.0); LYMPHOCYTES # (AUTO) 1.7 (1.0-3.2); LYMPHOCYTES % 25.8 % (18.0-39.1); MEAN CORPUSCULAR HEMOGLOBIN 31.1 pg (28-32); MEAN CORPUSCULAR HGB CONC 33.2 g/dL (31-35); MEAN CORPUSCULAR VOLUME 93.7 fL (81-99); MONOCYTES # (AUTO) 0.4 (0.2-0.8); MONOCYTES % 6.2 % (4.4-11.3); NEUTROPHILS # (AUTO) 4.1 (2.1-6.9); PLATELET COUNT 298 x10e3/uL (140-360); RED BLOOD COUNT 4.44 x10e6/uL (3.6-5.1)
--- NOTE | 2020-08-20 09:47 | Diagnostic Imaging Report ---
EXAMINATION: CHEST 2 VIEWS INDICATION: Preop for wrist surgery ^[id number] ^0915 ^PRE OP COMPARISON: 03/26/2019 FINDINGS: TUBES and LINES: None. LUNGS: Lungs are well inflated. Lungs are clear. There is no evidence of pneumonia or pulmonary edema. PLEURA: No pleural effusion or pneumothorax. HEART AND MEDIASTINUM: The cardiomediastinal silhouette is unremarkable. BONES AND SOFT TISSUES: No acute osseous lesion. Soft tissues are unremarkable. UPPER ABDOMEN: No free air under the diaphragm. IMPRESSION: No acute thoracic abnormality. Signed by: Dr. Chino Loya M.D. on 08/20/2020 9:43 AM
[~2020-08-25] MED LIST changes: +ACETAMINOPHEN/CODEINE 300MG - 30MG TAB ONE; +CEFAZOLIN SOD 1 GM/NS 50ML 50 ML IV ONE; +DEXAMETHASONE SOD PHOS INJ 4 MG/ML VIAL ONE; +EPHEDRINE SULFATE INJ 50 MG/ML VIAL ONE; +ETOMIDATE 2 MG/ML 10 ML INJ IV ONE; +ONDANSETRON HCL INJ 2MG/ML 2ML 2 MG/ML VIAL ONE; +PROPOFOL IV EMULSION 10 MG/ML 20 ML VIAL ONE; -PROPOFOL IV EMULSION 10 MG/ML 50 ML VIAL ONE; +SEVOFLURANE INHAL SOLN 250 ML PEN BTL ONE
--- NOTE | 2020-08-25 07:20 | NUR ---
SPIRITUAL CARE - Pre-Surgery Assessment: Pt in bed. Pt reported supportive attention from family and friends. Intervention: Legal Document Specialist provided pastoral presence, hospitality, and sympathetic listening. Acquainted pt with availability of outboard motor inspector while hospitalized. Outcome: Pt expressed appreciation for visit. No need for follow up indicated at this time. MANAS Locke Spiritual Care Department O: [phone]
--- NOTE | 2020-08-25 08:46 | Operative Report ---
DATE OF PROCEDURE: 08/25/2020 SURGEON: Justin Argueta MD HEALTH AND NUTRITION SPECIALIST: Isac Staley PA-C PREOPERATIVE DIAGNOSIS: Right carpal tunnel syndrome. POSTOPERATIVE DIAGNOSIS: Right carpal tunnel syndrome. PROCEDURE: Right endoscopic carpal tunnel release. INDICATIONS: The patient is a 59-year-old lady, who has clinic signs and symptoms suggestive of right carpal tunnel syndrome. She also has nerve conduction study showing some evidence of cervical radiculopathy and cubital tunnel syndrome. The findings and options have been discussed. She would like to proceed with a right endoscopic versus open carpal tunnel release. The risks and benefits were explained. The possibility of some persistent symptoms were discussed. She states she understands and wishes to proceed. PROCEDURE IN DETAIL: The patient was brought to the operating room and placed under general anesthetic. Her right upper extremity was prepped and draped in a sterile manner. A preoperative time-out was performed. The extremity was exsanguinated and a proximal tourniquet was inflated to 250 mmHg. An incision was made over the flexion crease of the right wrist. The palmaris longus was retracted to the radial side of the wound. The flexor retinaculum was elevated and incised with a pair of tenotomy scissors. An elevator was used to tease the tenosynovium off the undersurface of the transverse carpal ligament. Dilators were placed and the hook of the hamate was palpated. The MicroAire endoscope was placed into the carpal tunnel. The undersurface of the transverse carpal ligament was cleanly visualized without evidence of soft tissue interposition. The knife was deployed and the ligament was cut from distal to proximal. The proximal retinaculum was incised under direct visualization. The wound was closed with 2 nylon stitches. A sterile bandage was applied. The tourniquet was deflated. There was no blood loss and all needle and sponge counts were correct. Justin Argueta MD DR/LIZETT /[id number]
[2020-08-25 09:20] VITALS: BP 113/71
== END | disposition home or self-care (01) ==
LOC: OR 06:15
PROVIDERS: ATTEND Specialist
DX: G56.01 Carpal tunnel syndrome, right upper limb (principal); M54.12 Radiculopathy, cervical region; K21.9 Gastro-esophageal reflux disease without esophagitis; J45.909 Unspecified asthma, uncomplicated; I10 Essential (primary) hypertension; F41.9 Anxiety disorder, unspecified; Z01.810 Encounter for preprocedural cardiovascular examination; Z01.812 Encounter for preprocedural laboratory examination; Z01.818 Encounter for other preprocedural examination; Z11.59 Encounter for screening for other viral diseases; Z68.30 Body mass index [BMI] 30.0-30.9, adult
CPT/HCPCS: 29848; 36415; 71046; 85025; 93005; J0690; J1100; J2405; J2704; U0002

== ENCOUNTER → 2023-01-03 | Outpatient (RCR) | payer MEDICARE, OTHER ==
[~2023-01-03] MED LIST changes: -ACETAMINOPHEN/CODEINE 300MG - 30MG TAB ONE; -CEFAZOLIN SOD 1 GM/NS 50ML 50 ML IV ONE; -DEXAMETHASONE SOD PHOS INJ 4 MG/ML VIAL ONE; -EPHEDRINE SULFATE INJ 50 MG/ML VIAL ONE; -ETOMIDATE 2 MG/ML 10 ML INJ IV ONE; -ONDANSETRON HCL INJ 2MG/ML 2ML 2 MG/ML VIAL ONE; -PROPOFOL IV EMULSION 10 MG/ML 20 ML VIAL ONE; -SEVOFLURANE INHAL SOLN 250 ML PEN BTL ONE
== END ==
LOC: PT 12-16 10:07
PROVIDERS: ATTEND Specialist
DX: M70.61 Trochanteric bursitis, right hip (principal); M70.62 Trochanteric bursitis, left hip

== ENCOUNTER → 2023-02-03 | Outpatient (RCR) | payer MEDICARE, OTHER | LOC: PT 01-06 06:50 | PROVIDERS: ATTEND Specialist | DX: M70.61 Trochanteric bursitis, right hip (principal); M70.62 Trochanteric bursitis, left hip ==

== ENCOUNTER 2023-02-06 07:43 | Outpatient (RCR) | payer MEDICARE, OTHER ==
[2023-03-01] MEDS ORDERED: METHOCARBAMOL750 MG PO (18:34)
[2023-03-01] MEDS ORDERED: IBUPROFEN600 MG PO (18:34)
== END 2023-03-05 ==
LOC: PT 07:43
PROVIDERS: ATTEND Specialist
DX: M70.61 Trochanteric bursitis, right hip (principal); M70.62 Trochanteric bursitis, left hip

== ENCOUNTER 2023-03-01 14:52 | Emergency (ER) | payer MEDICARE, OTHER ==
[~2023-03-01] VITALS: Ht 167.6 cm; Wt 90.3 kg
[2023-03-01] MEDS ORDERED: KETOROLAC TROMETHAMINE 30 MG/ML VIAL IV STA (15:05)
[2023-03-01 15:32] LABS: BASOPHILS # (AUTO) 0.1 (0.0-0.1); BASOPHILS % 1.2 % (0.0-1.0); EOSINOPHILS # (AUTO) 0.3 (0.0-0.4); EOSINOPHILS % 4.2 % (0.0-6.0); HEMATOCRIT 41.4 % (34.2-44.1); HEMOGLOBIN 13.8 g/dL (12.0-16.0); LYMPHOCYTES # (AUTO) 1.9 (1.0-3.2); LYMPHOCYTES % 29.7 % (18.0-39.1); MEAN CORPUSCULAR HEMOGLOBIN 30.7 pg (28-32); MEAN CORPUSCULAR HGB CONC 33.3 g/dL (31-35); MEAN CORPUSCULAR VOLUME 92.2 fL (81-99); MONOCYTES # (AUTO) 0.4 (0.2-0.8); MONOCYTES % 6.2 % (4.4-11.3); NEUTROPHILS # (AUTO) 3.8 (2.1-6.9); NEUTROPHILS % 58.5 % (38.7-80.0); PLATELET COUNT 277 x10e3/uL (140-360); RED BLOOD COUNT 4.49 x10e6/uL (3.6-5.1); RED CELL DISTRIBUTION WIDTH 12.9 % (11.7-14.4)
[2023-03-01 15:45] LABS: ALBUMIN 4.3 g/dL (3.5-5.0); ALBUMIN/GLOBULIN RATIO 1.3 (0.8-2.0); ANION GAP 14.7 mmol/L (8-16); CALCIUM 9.7 mg/dL (8.4-10.2); CREATININE, SERUM 0.88 mg/dL (0.57-1.11); POTASSIUM 3.7 mmol/L (3.5-5.1)
[2023-03-01] MEDS ORDERED: IOPAMIDOL 370 MG/ML 100 ML INFUS..BTL INJ ONE (16:10)
[2023-03-01] MEDS ORDERED: IBUPROFEN600 MG PO (18:34)
[2023-03-01] MEDS ORDERED: METHOCARBAMOL750 MG PO (18:34)
[2023-03-01 19:44] VITALS: BP 111/71
== END 2023-03-01 19:46 | disposition home or self-care (01) ==
LOC: ER 14:56
DX: S06.0X0D Concussion without loss of consciousness, subsequent encounter (principal); S20.219A Contusion of unspecified front wall of thorax, initial encounter; M54.2 Cervicalgia; V43.52XD Car driver injured in collision with other type car in traffic accident, subsequent encounter; I10 Essential (primary) hypertension; E78.5 Hyperlipidemia, unspecified; J45.909 Unspecified asthma, uncomplicated; F41.9 Anxiety disorder, unspecified; G47.00 Insomnia, unspecified; Z96.651 Presence of right artificial knee joint
CPT/HCPCS: 36415; 70450; 71260; 72125; 74177; 80053; 84484; 85025; 93005; 99284; J1885; Q9967